=== PATIENT | female | born 1930 | race Two or more races ===

== ENCOUNTER 2020-07-03 14:39 | Inpatient (IN) | payer MEDICARE ==
[~2020-07-03] VITALS: Ht 154.9 cm; Wt 62.1 kg
--- NOTE | 2020-07-03 15:12 | Emergency Room Report ---
History of Present Illness General Chief Complaint: Generalized Weakness Source: Medical Record Present Illness HPI Disclaimer: Please note that this report is being documented using Spire[employer] technology. This can lead to erroneous entry secondary to incorrect interpretation by the dictating instrument. HPI: 89-year-old female presents from detention facility secondary to reported generalized weakness. Patient had a blood pressure noted to be mildly hypotensive at her detention facility. Patient is a poor historian and unable to provide any history. He does have a history of dementia, anxiety, arthritis, CHF. Allergies: Coded Allergies: No Known Allergies (Unverified , 07/03/20) COVID-19 Screening Contact w/high risk pt: No Experienced COVID-19 symptoms?: No COVID-19 Testing performed MIS SPECIALIST: Yes COVID-19 Screening: Negative COVID-19 COVID-19 Testing Source: 06/29/20 Patient History Reviewed Nursing Documentation: PMH: Agreed; PSxH: Agreed Nursing Documentation-PMH Past Medical History: No History, Except For Hx Hypertension: Yes Review of Systems All Other Systems: limited - Secondary to patient's baseline mental status Physical Exam Vital Signs Date Time Temp Pulse Resp B/P (MAP) Pulse Ox O2 Delivery O2 Flow Rate FiO2 07/03/20 14:41 60 16 88/48 (61) 99 Room Air Sp02 EP Interpretation: reviewed, normal General Appearance: well appearing, no apparent distress Head: normocephalic, atraumatic Eyes: bilateral eye PERRL, bilateral eye EOMI ENT: hearing grossly normal, moist mucus membranes Neck: full range of motion, supple Respiratory: lungs clear, normal breath sounds, no rhonchi, no respiratory distress, no retraction, no wheezing Cardiovascular #1: normal peripheral pulses, regular rate, rhythm, no murmur Gastrointestinal: non tender, soft, non-distended, no guarding Neurologic: alert, no focal defects, other - Patient nonverbal Skin: normal color, warm/dry Medical Decision Making Diagnostic Impression: Primary Impression: Urinary tract infection Additional Impression: Generalized weakness ER Course MDM: Differential diagnosis included not limited to dehydration, electrolyte disturbance, UTI, pneumonia to name a few. Did have COVID-19 testing approximately 4 days ago which was negative. Clinical course-IV inserted, patient seen by primary physician and infectious disease. Patient's urinalysis was consistent with infection. Initially ordered Zosyn however I stopped the order as infectious disease did see the patient in the ER and stated he would order antibiotics. Patient's vital signs were stable. Troponin was mildly elevated. Patient does have a history of pacemaker. Will be placed on the telemetry floor. Labs - Laboratory Tests Test 07/03/20 15:25 07/03/20 16:14 Sodium Level 141 MMOL/L (136-145) Potassium Level 4.1 MMOL/L (3.5-5.1) Chloride Level 107 MMOL/L (98-107) Carbon Dioxide Level 26 MMOL/L (21-32) Anion Gap 8 mmol/L (5-15) Blood Urea Nitrogen 32 mg/dL (7-18) H Creatinine 2.4 MG/DL (0.55-1.30) H Estimated Glomerular Filtration Rate 19.1 mL/min (>60) Glucose Level 108 MG/DL (74-106) H Lactic Acid Level 2.30 mmol/L (0.4-2.0) H Calcium Level 8.6 MG/DL (8.5-10.1) Total Bilirubin 0.5 MG/DL (0.2-1.0) Aspartate Amino Transferase (AST) 16 U/L (15-37) Alanine Aminotransferase (ALT) 14 U/L (12-78) Alkaline Phosphatase 35 U/L (46-116) L Total Creatine Kinase 56 U/L (26-308) Troponin I 0.070 ng/mL (0.000-0.056) Pro-B-Type Natriuretic Peptide 4567 pg/mL (0-125) H Total Protein 6.6 G/DL (6.4-8.2) Albumin 2.3 G/DL (3.4-5.0) L Globulin 4.3 g/dL Albumin/Globulin Ratio 0.5 (1.0-2.7) L Lipase 66 U/L (73-393) L White Blood Count 5.7 K/UL (4.8-10.8) Red Blood Count 4.97 M/UL (4.20-5.40) Hemoglobin 8.9 G/DL (12.0-16.0) L Hematocrit 32.0 % (37.0-47.0) L Mean Corpuscular Volume 64 FL (80-99) L Mean Corpuscular Hemoglobin 17.9 PG (27.0-31.0) L Mean Corpuscular Hemoglobin Concent 27.9 G/DL (32.0-36.0) L Red Cell Distribution Width 18.0 % (11.6-14.8) H Platelet Count 66 K/UL (150-450) L Mean Platelet Volume 8.4 FL (6.5-10.1) Neutrophils (%) (Auto) % (45.0-75.0) Lymphocytes (%) (Auto) % (20.0-45.0) Monocytes (%) (Auto) % (1.0-10.0) Eosinophils (%) (Auto) % (0.0-3.0) Basophils (%) (Auto) % (0.0-2.0) Neutrophils % (Manual) Pending Lymphocytes % (Manual) Pending Platelet Estimate Pending Platelet Morphology Pending Urine Color Yellow Urine Appearance Cloudy Urine pH 6 (4.5-8.0) Urine Specific [place] 1.015 (1.005-1.035) Urine Protein 3+ (NEGATIVE) H Urine Glucose (UA) Negative (NEGATIVE) Urine Ketones Negative (NEGATIVE) Urine Blood Negative (NEGATIVE) Urine Nitrite Negative (NEGATIVE) Urine Bilirubin Negative (NEGATIVE) Urine Urobilinogen Normal MG/DL (0.0-1.0) Urine Leukocyte Esterase 3+ (NEGATIVE) H Urine RBC /HPF (0 - 2) Urine WBC /HPF (0 - 2) Urine Squamous Epithelial Cells /LPF (NONE/OCC) Urine Bacteria /HPF (NONE) EKG Diagnostic Results Rate: normal Rhythm: other - Atrial paced rhythm Other Impression Q waves anteriorly Chest X-Ray Diagnostic Results Chest X-Ray Diagnostic Results : Chest X-Ray Ordered: Yes # of Views/Limited/Complete: 1 View Indication: Shortness of Breath EP Interpretation: Yes Impression: Other - Bilateral interstitial prominence noted Last Vital Signs Date Time Temp Pulse Resp B/P (MAP) Pulse Ox O2 Delivery O2 Flow Rate FiO2 07/03/20 14:41 60 16 88/48 (61) 99 Room Air Disposition: ADMITTED INPATIENT Condition: Serious Kirit Reyna M.D. Jul 03, 2020 15:12
[2020-07-03 15:43] VITALS: BP 102/47
--- NOTE | 2020-07-03 15:57 | NUR ---
PATIENTS Daughter called will update as soon as we have results [phone]
[2020-07-03 16:08] LABS: ANION GAP 8 mmol/L (5-15); BLOOD UREA NITROGEN 32 mg/dL (7-18); CALCIUM 8.6 MG/DL (8.5-10.1); CARBON DIOXIDE 26 MMOL/L (21-32); CHLORIDE 107 MMOL/L (98-107); CREATININE 2.4 MG/DL (0.55-1.30); POTASSIUM 4.1 MMOL/L (3.5-5.1); SODIUM 141 MMOL/L (136-145)
[2020-07-03] MEDS ORDERED: VITAMIN B-1100 MG ORAL (16:12)
[2020-07-03] MEDS ORDERED: VITAMIN D325 MC1 PO (16:12)
[2020-07-03] MEDS ORDERED: MIRTAZAPINE7.5 MG ORAL (16:12)
[2020-07-03] MEDS ORDERED: MULTIVITAMINS1 EAC2 ORAL (16:12)
[2020-07-03] MEDS ORDERED: PRAVASTATIN SOD10 M1 ORAL (16:12)
[2020-07-03] MEDS ORDERED: FERROUS SULFAT325 MG ORAL (16:12)
[2020-07-03] MEDS ORDERED: DIGOXIN0.125 MG/2 ORAL (16:12)
[2020-07-03] MEDS ORDERED: ZOLPIDEM TARTRAT5 MG ORAL (16:12)
[2020-07-03] MEDS ORDERED: LORATADINE10 M1 PO (16:12)
[2020-07-03] MEDS ORDERED: DULOXETINE HCL30 MG PO (16:12)
[2020-07-03] MEDS ORDERED: SPIRONOLACTONE25 MG ORAL (16:12)
[2020-07-03] MEDS ORDERED: CRANBERRY400 MG PO (16:12)
[2020-07-03] MEDS ORDERED: ACETAMINOPHEN325 M1 ORAL (16:12)
[2020-07-03] MEDS ORDERED: MULTAQ400 MG ORAL (16:12)
[2020-07-03] MEDS ORDERED: FUROSEMIDE20 M1 ORAL (16:12)
[2020-07-03] MEDS ORDERED: ASPIRIN81 MG ORAL (16:12)
[2020-07-03] MEDS ORDERED: LEVOTHYROXINE125 MCG ORAL (16:12)
[2020-07-03] MEDS ORDERED: PANTOPRAZOLE SO40 MG ORAL (16:12)
[2020-07-03] MEDS ORDERED: MILK OF MA400 MG/51 ORAL (16:12)
[2020-07-03] MEDS ORDERED: ALBUTEROL2.5 MG/3 M INH (16:12)
[2020-07-03] MEDS ORDERED: NAMENDA5 MG ORAL (16:12)
--- NOTE | 2020-07-03 16:20 | Diagnostic Imaging Report ---
Indication: Shortness of breath Technique: One view of the chest Comparison: none Findings: The heart is upper limits normal in size. There is bilateral acuity indeterminate interstitial prominence. There are multiple healed right rib fracture deformities. There is a left chest pacemaker. The pleural spaces are grossly clear. Impression: Bilateral interstitial prominence, acuity indeterminate; suspect on the basis of senescent change but could represent acute interstitial edema. Correlate with clinical findings Pacemaker
[2020-07-03 16:22] LABS: ALANINE AMINOTRANSFERASE 14 U/L (12-78); ALBUMIN 2.3 G/DL (3.4-5.0); ALBUMIN/GLOBULIN RATIO 0.5 (1.0-2.7); ALKALINE PHOSPHATASE 35 U/L (46-116); ASPARTATE AMINO TRANSFERASE 16 U/L (15-37); BILIRUBIN,TOTAL 0.5 MG/DL (0.2-1.0); CREATINE KINASE 56 U/L (26-308)
[2020-07-03] MEDS ORDERED: Piperacillin/Tazobactam 3.375 GM in NS 110 ML IVPB ONE (16:30)
[2020-07-03] MEDS ORDERED: Aspirin Baby 81mg ORAL ONE (16:45)
[2020-07-03 16:50] LABS: HEMOGLOBIN 8.9 G/DL (12.0-16.0); MEAN CORPUSCULAR VOLUME 64 FL (80-99); PLATELET COUNT 66 K/UL (150-450); RED BLOOD COUNT 4.97 M/UL (4.20-5.40); WHITE BLOOD COUNT 5.7 K/UL (4.8-10.8)
[2020-07-03 17:01] LABS: APPEARANCE,URINE CLOUDY; BILIRUBIN, URINE NEGATIVE (NEGATIVE); NITRITE,URINE NEGATIVE (NEGATIVE); UROBILINOGEN,URINE NORMAL MG/DL (0.0-1.0)
[2020-07-03 17:13] LABS: COLOR,URINE YELLOW
--- NOTE | 2020-07-03 17:18 | NUR ---
ED Nurse Note: Report given to Callie PHAN of telemetry unit.
--- NOTE | 2020-07-03 17:19 | NUR ---
NURSE NOTES: Report was received from Viv ED RN. Awaiting arrival to telemetry floor.
[2020-07-03 17:37] LABS: LEUKOCYTE ESTERASE ,URINE 3+ (NEGATIVE)
[2020-07-03 17:40] LABS: KETONES,URINE NEGATIVE (NEGATIVE); PH,URINE 6 (4.5-8.0); PROTEIN,URINE 3+ (NEGATIVE)
[2020-07-03 17:41] LABS: GLUCOSE, URINE (UA) NEGATIVE (NEGATIVE)
[2020-07-03 18:00] VITALS: BP 104/37
--- NOTE | 2020-07-03 18:00 | NUR ---
NURSE NOTES: Patient arrived to the telemetry floor via hospital bed, breathing even and unlabored on room air. Patient belongings accounted for, radiation monitor placed, 20g IV on left forearm intact, saline locked. Alert and oriented x1, unable to fully gauge alert and oriented status due to language barrier but patient is responsive to environmental and tactile stimuli, bed alarm on, bed in lowest and locked position, side rails upx2, call light within reach.
--- NOTE | 2020-07-03 18:18 | NUR ---
NURSE NOTES: Received admission orders from Dr. Pak, including to hold loratidine and furosemide, noted and will carry out.
[2020-07-03] MEDS ORDERED: Albuterol ud Inhalation HHN PRN (18:45)
[2020-07-03] MEDS ORDERED: Albuterol 90mcg Inhaler 8gm INH PRN (18:45)
--- NOTE | 2020-07-03 19:39 | NUR ---
NURSE HAND-OFF REPORT: Important Events on Shift: Fever endorsed to PM shift Patient Status: stable condition, breathing even and unlabored Diet: Kosher mechanical soft Pending Orders: [] Pending Results/Labs:[] Pending MD notification:[] Latest Vital Signs: Temperature 101.2 , Pulse 79 , B/P 96 /56 , Respiratory Rate 18 , O2 SAT 99 , Room Air, O2 Flow Rate . Vital Sign Comment: [] EKG Rhythm: Sinus Rhythm Rhythm change?: N MD Notified?: - MD Response: Latest Parada Fall Score: 60 Fall Risk: High Risk Safety Measures: Call light Within Reach, Bed Alarm Zone 2, Side Rails Side Rails x2, Bed position Low and Locked. Fall Precautions: Yellow Socks Yellow Gown Door Sign Patient Fall Education Report given to Jessi Szymanski RN.
--- NOTE | 2020-07-03 19:40 | NUR ---
NURSE NOTES: Report received from EMILIE Wilkins. Patient is awake on bed , alert and oriented x . laboratory monitor is in place, shows sinus rhythm, she has pacemaker on her left upper chest. On room air with no desaturation reported. On kosher, mechanical soft-ground diet. Patient is on fall precaution. IV site is on left forearm g-20 running NS @ 50 cc/hour that is patent and intact. Safety measures are in place, bed in lowest and locked position, side rails up x 2, call light button place within reach, instructed to call for any assistance needed.
[2020-07-03 20:00] VITALS: BP 81/34
--- NOTE | 2020-07-03 20:00 | NUR ---
NURSE NOTES: Patient's temperature at this time is 102. Tylenol 650 mg was given arpung 1900 by morning nurse, cooling measures will be provided.
--- NOTE | 2020-07-03 20:31 | Consultation ---
History of Present Illness General Date patient seen: Jul 03, 2020 Time patient seen: 16:30 Chief Complaint: Generalized Weakness Referring physician: Matthew Colunga Reason for Consultation: Bilateral pneumonia with UTI and possible sepsis Present Illness HPI This is an 89-year-old [place] female with past medical history of CHF, arthri tis, anxiety, dementia was [facility] from her [facility] facility for generalized weakness and hypotension. It is unclear for how long patient had these symptoms but she was evaluated and sent to the hospital for further evaluation and management. Patient had low blood pressure in ER with 88 systolic over 48 diastolic and sating 99% on room air with pulse of 60. she had extensive work-up in the emergency room including labs which showed elevated creatinine of 2.4 with BUN of 32, lactic acid of 2.3, WBC of 5.7 with hemoglobin of 8.9 and platelet of 66, urine analysis showed +3 leukocyte esterase with many bacteria concerning for infection, chest x-ray showed bilateral interstitial infiltrations concerning for pneumonia so she was given Zosyn and vancomycin and admitted to the medical floor, infectious disease consultation was requested for antimicrobial treatment on further care. As of note patient is poor historian could not provide good history at this time Allergies: Coded Allergies: No Known Allergies (Unverified , 07/03/20) Medication History Scheduled Aspirin* (Aspirin*), 81 MG ORAL DAILY, (Reported) Cholecalciferol (Vitamin D3) (Vitamin D3*), 1,250 MCG PO DAILY, (Reported) Digoxin* (Digoxin*), 0.125 MG ORAL DAILY, (Reported) Dronedarone Hydrochloride (Multaq), 400 MG ORAL TWICE A DAY, (Reported) Duloxetine HCl (Duloxetine HCl*), 30 MG PO DAILY, (Reported) Ferrous Sulfate* (Ferrous Sulfate*), 325 MG ORAL DAILY, (Reported) Furosemide* (Lasix*), 20 MG ORAL DAILY, (Reported) Levothyroxine Sodium* (Levothyroxine Sodium*), 112 MCG ORAL DAILY, (Reported) Loratadine (Claritin*), 10 MG PO DAILY, (Reported) Magnesium Hydroxide* (Milk Of Magnesia*), 30 ML ORAL DAILY, (Reported) Memantine Hcl* (Namenda*), 5 MG ORAL DAILY, (Reported) Mirtazapine* (Mirtazapine*), 7.5 MG ORAL BEDTIME, (Reported) Multivitamins* (Multivitamins*), 1 TAB ORAL DAILY, (Reported) Pantoprazole* (Pantoprazole*), 40 MG ORAL DAILY, (Reported) Pravastatin Sod (Pravastatin Sod), 10 MG ORAL BEDTIME, (Reported) Spironolactone* (Aldactone*), 12.5 MG ORAL DAILY, (Reported) Thiamine Hcl* (Vitamin B-1*), 100 MG ORAL DAILY, (Reported) Scheduled PRN Acetaminophen* (Acetaminophen 325MG Tablet*), 650 MG ORAL Q4H PRN for Pain Scale (3-5), (Reported) Albuterol Sulfate* (Albuterol Sulfate Hhn*), 3 ML INH Q4H PRN for Shortness of Breath, (Reported) Zolpidem Tartrate* (Zolpidem Tartrate*), 5 MG ORAL BEDTIME PRN for Insomnia, (Reported) Miscellaneous Medications Cranberry (Cranberry), 400 MG PO, (Reported) Patient History Limited by: language barrier, age History Provided By: Medical Record, EMS Healthcare decision maker N Resuscitation status Advanced Directive on File Past Medical/Surgical History Past Medical/Surgical History: (1) CHF (congestive heart failure) (2) Arthritis (3) Dementia Family History Family History: (1) Unknown family medical history Social History Social History: (1) longterm resident Review of Systems Constitutional: Reports: weakness Eye: Reports: no symptoms ENT: Reports: no symptoms Respiratory: Reports: cough, DEMPSEY Cardiovascular: Reports: no symptoms Gastrointestinal: Reports: no symptoms Genitourinary: Reports: no symptoms Musculoskeletal: Reports: other - Weakness Skin: Reports: no symptoms Psychiatric: Reports: no symptoms Neurological: Reports: other - Confusion Endocrine: Reports: no symptoms Hematologic/Lymphatic: Reports: no symptoms Physical Exam General Appearance: WD/WN, no apparent distress, lethargic, confused Lines, tubes and drains: peripheral HEENT: normocephalic, anicteric, mucous membranes moist, PERRL Neck: non-tender, supple, normal inspection Respiratory/Chest: chest wall non-tender, no respiratory distress, no accessory muscle use, crackles/rales Cardiovascular/Chest: normal peripheral pulses, normal rate, regular rhythm, no gallop/murmur, no JVD Abdomen: normal bowel sounds, non tender, soft, no organomegaly, no mass Genitourinary/Rectal: normal genital exam Extremities: normal range of motion, non-tender, normal inspection, no calf tenderness Skin Exam: normal pigmentation, warm/dry Neurologic: alert, responsive Musculoskeletal: normal muscle bulk, no effusion Last 24 Hour Vital Signs Date Time Temp Pulse Resp B/P (MAP) Pulse Ox O2 Delivery O2 Flow Rate FiO2 07/03/20 18:34 98.0 79 18 96/56 99 Room Air 07/03/20 18:00 93 07/03/20 18:00 99.5 93 20 104/37 (59) 94 07/03/20 17:52 Room Air 07/03/20 15:43 66 18 Room Air 07/03/20 15:43 98.0 68 18 102/47 98 Room Air 07/03/20 14:41 60 16 88/48 (61) 99 Room Air Laboratory Tests Test 07/03/20 15:25 07/03/20 16:14 Sodium Level 141 MMOL/L (136-145) Potassium Level 4.1 MMOL/L (3.5-5.1) Chloride Level 107 MMOL/L (98-107) Carbon Dioxide Level 26 MMOL/L (21-32) Anion Gap 8 mmol/L (5-15) Blood Urea Nitrogen 32 mg/dL (7-18) H Creatinine 2.4 MG/DL (0.55-1.30) H Estimat Glomerular Filtration Rate 19.1 mL/min (>60) Glucose Level 108 MG/DL (74-106) H Lactic Acid Level 2.30 mmol/L (0.4-2.0) H Calcium Level 8.6 MG/DL (8.5-10.1) Total Bilirubin 0.5 MG/DL (0.2-1.0) Aspartate Amino Transf (AST/SGOT) 16 U/L (15-37) Alanine Aminotransferase (ALT/SGPT) 14 U/L (12-78) Alkaline Phosphatase 35 U/L (46-116) L Total Creatine Kinase 56 U/L (26-308) Troponin I 0.070 ng/mL (0.000-0.056) Pro-B-Type Natriuretic Peptide 4567 pg/mL (0-125) H Total Protein 6.6 G/DL (6.4-8.2) Albumin 2.3 G/DL (3.4-5.0) L Globulin 4.3 g/dL Albumin/Globulin Ratio 0.5 (1.0-2.7) L Lipase 66 U/L (73-393) L White Blood Count 5.7 K/UL (4.8-10.8) Red Blood Count 4.97 M/UL (4.20-5.40) Hemoglobin 8.9 G/DL (12.0-16.0) L Hematocrit 32.0 % (37.0-47.0) L Mean Corpuscular Volume 64 FL (80-99) L Mean Corpuscular Hemoglobin 17.9 PG (27.0-31.0) L Mean Corpuscular Hemoglobin Concent 27.9 G/DL (32.0-36.0) L Red Cell Distribution Width 18.0 % (11.6-14.8) H Platelet Count 66 K/UL (150-450) L Mean Platelet Volume 8.4 FL (6.5-10.1) Neutrophils (%) (Auto) % (45.0-75.0) Lymphocytes (%) (Auto) % (20.0-45.0) Monocytes (%) (Auto) % (1.0-10.0) Eosinophils (%) (Auto) % (0.0-3.0) Basophils (%) (Auto) % (0.0-2.0) Differential Total Cells Counted 100 Neutrophils % (Manual) 71 % (45-75) Lymphocytes % (Manual) 27 % (20-45) Monocytes % (Manual) 2 % (1-10) Eosinophils % (Manual) 0 % (0-3) Basophils % (Manual) 0 % (0-2) Band Neutrophils 0 % (0-8) Platelet Estimate Decreased L Platelet Morphology Normal Hypochromasia 1+ Anisocytosis 1+ Microcytosis 1+ Urine Color Yellow Urine Appearance Cloudy Urine pH 6 (4.5-8.0) Urine Specific [place] 1.015 (1.005-1.035) Urine Protein 3+ (NEGATIVE) H Urine Glucose (UA) Negative (NEGATIVE) Urine Ketones Negative (NEGATIVE) Urine Blood Negative (NEGATIVE) Urine Nitrite Negative (NEGATIVE) Urine Bilirubin Negative (NEGATIVE) Urine Urobilinogen Normal MG/DL (0.0-1.0) Urine Leukocyte Esterase 3+ (NEGATIVE) H Urine RBC /HPF (0 - 2) Urine WBC /HPF (0 - 2) Urine Squamous Epithelial Cells /LPF (NONE/OCC) Urine Bacteria /HPF (NONE) Microbiology Date/Time Source Procedure Growth Status 07/03/20 17:01 Rectum Received Height (Feet): 5 Height (Inches): 1.00 Weight (Pounds): 137 Medications Current Medications Medications (Trade) Dose Ordered Sig/Kallie Route PRN Reason Start Time Stop Time Status Last Admin Dose Admin Acetaminophen (Tylenol) 650 mg Q4H PRN ORAL Temp >100.5 07/03/20 18:30 08/02/20 18:29 07/03/20 19:10 Acetaminophen (Tylenol) 650 mg Q4H PRN ORAL pain 07/03/20 18:45 08/02/20 18:44 Albuterol Sulfate (Proventil MDI) 1 puff Q4H PRN INH Shortness of Breath 07/03/20 18:45 10/01/20 18:44 Aspirin (ASA) 81 mg DAILY ORAL 07/04/20 09:00 08/18/20 08:59 Duloxetine HCl (Cymbalta) 30 mg DAILY ORAL 07/04/20 09:00 10/02/20 08:59 Ferrous Sulfate (Feosol) 325 mg DAILY ORAL 07/04/20 09:00 10/02/20 08:59 Levothyroxine Sodium (Synthroid) 112 mcg DAILY@0630 ORAL 07/04/20 06:30 08/03/20 06:29 Magnesium Hydroxide (Mom) 30 ml DAILY ORAL 07/04/20 09:00 08/03/20 08:59 Memantine (Namenda) 5 mg DAILY ORAL 07/04/20 09:00 08/03/20 08:59 Mirtazapine (Remeron) 7.5 mg BEDTIME ORAL 07/03/20 21:00 10/01/20 20:59 Multivitamins (Multivitamins) 1 tab DAILY ORAL 07/04/20 09:00 08/03/20 08:59 Pantoprazole (Protonix) 40 mg DAILY ORAL 07/04/20 09:00 08/03/20 08:59 Piperacillin Sod/ Tazobactam Sod 3.375 gm/Sodium Chloride 110 ml @ 27.5 mls/hr Q12HR IVPB 07/03/20:00 07/10/20 20:59 Pravastatin Sodium (Pravachol) 10 mg BEDTIME ORAL 07/03/20 21:00 08/02/20 20:59 Sodium Chloride 1,000 ml @ 50 mls/hr Q20H IV 07/03/20 18:30 08/02/20 18:29 07/03/20 19:11 Spironolactone (Aldactone) 12.5 mg DAILY ORAL 07/04/20 09:00 08/03/20 08:59 Thiamine HCl (Vitamin B1) 100 mg DAILY ORAL 07/04/20 09:00 08/03/20 08:59 Vancomycin HCl (Vanco pharmacy to dose) 1 ea DAILY PRN MISC Per rx protocol 07/03/20 19:00 08/02/20 18:59 Vancomycin HCl 1 gm/Dextrose 275 ml @ 183.708 mls/hr ONCE IVPB 07/04/20 01:00 07/04/20 03:00 Zolpidem Tartrate (Ambien) 5 mg BEDTIME PRN ORAL Insomnia 07/03/20 18:45 07/10/20 18:44 Assessment/Plan Problem List: (1) Bilateral pneumonia Assessment & Plan: With interstitial infiltrations on chest x-ray, continue vancomycin and Zosyn monitor chest x-ray, aspiration precaution. Patient was tested recently for CO VID 19 with PCR test couple of days ago and it was negative as per the primary ICD Codes: J18.9 - Pneumonia, unspecified organism SNOMED: 968313051 (2) Acute renal failure Assessment & Plan: Suspect due to dehydration continue fluids, avoid nephrotoxic's, close monitor of renal function, nephrology is following ICD Codes: N17.9 - Acute kidney failure, unspecified SNOMED: 15430251 (3) Dehydration Assessment & Plan: Continue IV fluids for hydration and monitor electrolytes ICD Codes: E86.0 - Dehydration SNOMED: 21117980 (4) Urinary tract infection Assessment & Plan: Already on antibiotics pending urine cultures ICD Codes: N39.0 - Urinary tract infection, site not specified SNOMED: 25535367 Qualifiers: (5) Generalized weakness Assessment & Plan: Supportive care, PT OT eval ICD Codes: R53.1 - Weakness SNOMED: 53661574 Status: stable Isma Schaffer M.D. Jul 03, 2020 20:31
[2020-07-03] MEDS: Piperacillin/Tazobactam 3.375 GM in NS 110 ML IVPB SCH (20:57)
[2020-07-03 21:30] VITALS: BP 88/38
--- NOTE | 2020-07-03 21:30 | NUR ---
NURSE NOTES: blood pressure is still low 88/38, maintained on Trendelenburg position, will closely monitor.
--- NOTE | 2020-07-03 21:40 | NUR ---
NURSE NOTES: Called Dr. Pak and left a message, informing him regarding patient's blood pressure. Awaiting for call back.
[2020-07-03 22:00] VITALS: BP 80/33
[2020-07-03] MEDS ORDERED: NS 250 ML IVPB ONE (22:00)
--- NOTE | 2020-07-03 22:00 | NUR ---
NURSE NOTES: Received a called back from Dr. Pak, will carry out.
[2020-07-03] MEDS: Midodrine 10mg tab ORAL SCH (22:21)
--- NOTE | 2020-07-03 23:20 | NUR ---
NURSE NOTES: Patient's blood pressure after 250 NS bolus, increasing her IVF rate and giving 5mg midodrine is 75/29 on left arm and 80/41 on right arm will call Dr. Pak.
--- NOTE | 2020-07-03 23:30 | NUR ---
NURSE NOTES: Spoke with Dr. Pacheco and received an orders. Will carry out.
[2020-07-04] VITALS (56 sets, daily range): BP systolic 44–150; BP diastolic 26–86
--- NOTE | 2020-07-04 00:10 | NUR ---
TRANSFER TO FLOOR: Patient transferred to ICU, per bed. Report given to EMILIE Cole. Belongings and medications given to receiving RN. At this time patient is awake, non-verbal but able to follow commands. latest blood pressure is 75/29. Plan of care endorsed.
--- NOTE | 2020-07-04 00:15 | NUR ---
NURSE NOTES: ENDORSED THE PATIENT FROM TELE NURSE EMILIE VEGA. PATIENT OPEN EYES TO NAME, ON ROOM AIR, NO SOB NOTED, PACEMAKER TO LEFT UPPER CHEST, HR 70/MIN A- PACED/SR NOTED, ABDOMEN SOFT, INCONTINENCE STATUS, PPL TO LEFT FA 20G INTACT AND PATENT, ONGOING IV FLUID NS AT 75ML/HR STATUS, MADE LOWER BED POSITION, ON BED ALARM AND LOCKED, PROVIDED CALL LIGHT WITHIN REACH, WILL CONTINUE TO MONITOR.
--- NOTE | 2020-07-04 00:42 | NUR ---
NURSE NOTES: CALLED DR. FREY REGARDING BP 69/27MMHG THAT LEFT MESSAGE AWAIT CALL.
[2020-07-04] MEDS ORDERED: Vancomycin 1gm in D5W 275ml IVPB SCH ×2 (01:00→14:00)
--- NOTE | 2020-07-04 01:23 | NUR ---
NURSE NOTES: CALLED DR. FREY REGARDING BP 75/41 MMHG THAT LEFT MESSAGE AWAIT CALL.
--- NOTE | 2020-07-04 01:45 | NUR ---
NURSE NOTES: CALLED NURSING [employer] THAT DID NOT CALL BACK FROM DR. ARROYO.
--- NOTE | 2020-07-04 02:10 | NUR ---
NURSE NOTES: LE: ANESTHESIA ASSISTANT CAME AND CALLED DR. ARROYO THAT NURSE RECEIVED TELEPHONE ORDER AND READ BACK AT 0152AM. CALLED DR. BARRIOS REGARDING CENTRAL LINE THAT LEFT MESSAGE AWAIT CALL AT 0154AM. CALLED BACK FROM DR. BARRIOS THAT TRANSFER TO ER DOCTOR REGARDING CENTRAL LINE PLACEMENT ORDER AT 0200AM.
--- NOTE | 2020-07-04 02:25 | NUR ---
NURSE NOTES: LE: ER DR. DURAN, PLACED 3 LUMEN CENTRAL LINE TO RIGHT FEMORAL.
[2020-07-04 02:31] LABS: HEMATOCRIT 24.4 % (37.0-47.0); MEAN CORPUSCULAR VOLUME 63 FL (80-99); PLATELET COUNT 35 K/UL (150-450); RED BLOOD COUNT 3.86 M/UL (4.20-5.40); RED CELL DISTRIBUTION WIDTH 17.9 % (11.6-14.8); WHITE BLOOD COUNT 14.2 K/UL (4.8-10.8)
[2020-07-04 02:48] LABS: CALCIUM 6.6 MG/DL (8.5-10.1); CREATININE 2.6 MG/DL (0.55-1.30); POTASSIUM 3.9 MMOL/L (3.5-5.1)
--- NOTE | 2020-07-04 02:56 | NUR ---
NURSE NOTES: PATIENT TRIED TO REMOVE LINE, BP 135/54MMHG WITH LEVOPHED DRIP 8 MCG/MIN AT THIS TIME, WILL CONTINUE TO MONITOR.
[2020-07-04 03:25] LABS: HEMOGLOBIN 6.9 G/DL (12.0-16.0)
--- NOTE | 2020-07-04 04:29 | History and Physical Report ---
DATE OF ADMISSION: 07/03/2020 This is a late dictation. Time patient was seen was at 5:00 in the afternoon in the emergency room. CHIEF COMPLAINT: Generalized weakness. HISTORY OF PRESENT ILLNESS: This is an 89-year-old [place] female with a past medical history of CHF, arthritis, anxiety, dementia who was brought in from assisted living for complaint of generalized weakness and multiple falls and hypotension x 2-3 days. Patient came in to the ER with blood pressure of 88/48 and saturating at 99% on room air with a pulse of 60. She was not in respiratory distress and I was able to talk to the patient in the emergency room. Her labs showed infiltrate in the chest x-ray consistent with pneumonia and BUN of 32, creatinine of 2.4 consistent with acute renal failure and also her UA showed positive leukocyte esterase consistent with urinary tract infection. Patient was being admitted to [facility] for IV antibiotic and we will start the patient on IV fluid for hydration. ALLERGIES: No known drug allergies. MEDICATIONS: Patient was on aspirin, vitamin D, digoxin, Multaq, duloxetine, ferrous sulfate, Lasix, levothyroxine, loratadine, magnesium hydroxide, mirtazapine, multivitamin, pantoprazole, pravastatin, spironolactone, and thiamine as outpatient. FAMILY HISTORY: Noncontributory. SOCIAL HISTORY: Patient resides at [facility]. No history of smoking or alcohol. No history of IV drug use. PAST SURGICAL HISTORY: Pacemaker placement. PAST MEDICAL HISTORY: Includes CHF, arthritis, dementia, anxiety, insomnia, hypothyroidism, and history of anemia and Depression REVIEW OF SYSTEMS: Negative except for HPI. PHYSICAL EXAMINATION: VITAL SIGNS: Include blood pressure 96/56, pulse ox 99% on room air, pulse 79, respirations 18, blood pressure 98.0. GENERAL APPEARANCE: Alert. Responds to commands. HEENT: Normocephalic, normochromic. Extraocular muscles intact. NECK: Supple. No lymphadenopathy. LUNGS: Clear to auscultation bilaterally except for small rhonchi on the right side. CARDIOVASCULAR: Regular rate and rhythm. No murmur. No gallop. ABDOMEN: Soft, nontender, nondistended. Positive bowel sounds. EXTREMITIES: No edema, cyanosis, or clubbing. NEUROLOGIC: Patient responds to commands. LABORATORY DATA: Sodium 141, potassium 4.1, chloride 107, carbon dioxide 26, BUN 32, creatinine 2.4, glucose 108. Lactic acid 2.3. AST 16, ALT 14. Calcium 8.6. Alkaline phosphatase 35. Troponin is 0.07. Creatine kinase is 56. BNP 4567. Total protein 6.6. Albumin 2.3. Lipase 66. WBC 5.7, hemoglobin 8.9, hematocrit 32, MCV 64, platelet count 66. UA showed +3 protein, +3 leukocyte esterase, wbc's 60 to 80, rbc's 0 to 2, epithelial cells few, urine bacteria many. Chest x-ray showed bilateral infiltrate. ASSESSMENT: 1. Pneumonia. We will start the patient on Zosyn and Vanco IV and will send for COVID-19 PCR testing. Patient had a COVID-19 done few days ago at the assisted living that was negative. 2. Urinary tract infection. We will continue same antibiotic Zosyn and Vanco and we will follow up cultures. 3. Acute renal failure. We will continue hydration and hold blood pressure medication. 4. Hypotension and dehydration. We will continue IV fluids and monitor electrolytes. 5. CHF. We will have manager of purchasing, Dr. Abbott see the patient and we will do a consult for Cardiology. 6. Generalized weakness. We will have PT/OT evaluation while in the hospital and monitor her progress. 7. Thrombocytopenia. I will continue monitoring the platelet count and we will try to get end stapler evaluation if the platelet count does not improve. 8. Pacemaker. I will have the manager of purchasing see the patient for her pacemaker as well. 9. Possible sepsis. We will continue IV antibiotics as above. Patient will be admitted for minimum of 2-night stay for the diagnoses of pneumonia, urinary tract infection, acute renal failure, hypotension, and possible sepsis. Matthew Pak M.D. DR: LINN JOB#: [id number] CC: MACIE
--- NOTE | 2020-07-04 05:20 | NUR ---
NURSE NOTES: MORNING CARE WAS DONE, VOIDED, YELLOW URINE OUTED, PATIENT ALERT, DENIED PAIN OR SOB AT THIS TIME, ONGOING LEVOPHED 6MCG/MIN VIA RIGHT FEMORAL TLC, WILL CONTINUE TO MONITOR.
--- NOTE | 2020-07-04 05:42 | Emergency Room Report ---
History of Present Illness General Chief Complaint: Generalized Weakness Source: Medical Record, EMS Present Illness HPI This patient was admitted for sepsis and became hypotensive requiring pressors. I was asked to place a central line. Unable to get consent from patient or family. A central line was placed under sterile condition. Patient tolerated procedure without any problem. Allergies: Coded Allergies: No Known Allergies (Unverified , 07/03/20) COVID-19 Screening Contact w/high risk pt: Yes Experienced COVID-19 symptoms?: Yes COVID-19 Testing performed CLOCKMAKER APPRENTICE: Yes COVID-19 Screening: Negative COVID-19 COVID-19 Testing Source: 06/29/20 Nursing Documentation-PM Past Medical History: No History, Except For Hx Cardiac Problems: Yes Hx Hypertension: Yes Hx Neurological Problems: Yes Hx Weakness: Yes Physical Exam Vital Signs Date Time Temp Pulse Resp B/P (MAP) Pulse Ox O2 Delivery O2 Flow Rate FiO2 07/03/20 14:41 60 16 88/48 (61) 99 Room Air 07/03/20 15:43 98.0 Procedures Central Line Central Line : Consent: Emergent Central Line Lumen: triple Maximal Sterile Barrier Tech: yes cap, yes mask, yes sterile gown, yes sterile gloves, yes large sterile sheet, yes hand hygiene, yes chlorhexidine prep Central Line Postion: femoral (R) Anesthesia: local cc's of anesthesia: 5 US Guided Line?: No Complications: none Central Line Post Position: sutured, good blood return Attempts: One Patient Tolerated: Well Complications: None Medical Decision Making Diagnostic Impression: Primary Impression: Urinary tract infection Additional Impressions: Generalized weakness Septic shock Person under investigation for COVID-19 Last Vital Signs Date Time Temp Pulse Resp B/P (MAP) Pulse Ox O2 Delivery O2 Flow Rate FiO2 07/04/20 04:15 62 23 108/42 (64) 93 07/04/20 04:00 Room Air 07/04/20 04:00 97.6 Disposition: ADMITTED INPATIENT Condition: Critical Referrals: Matthew Pak MD (PCP) Raúl Garnett MD Jul 04, 2020 05:42
[2020-07-04 06:13] LABS: HEMATOCRIT 31.3 % (37.0-47.0); HEMOGLOBIN 8.7 G/DL (12.0-16.0); MEAN CORPUSCULAR VOLUME 64 FL (80-99); PLATELET COUNT 28 K/UL (150-450); RED BLOOD COUNT 4.92 M/UL (4.20-5.40); RED CELL DISTRIBUTION WIDTH 17.9 % (11.6-14.8); WHITE BLOOD COUNT 11.9 K/UL (4.8-10.8)
--- NOTE | 2020-07-04 07:16 | NUR ---
NURSE HAND-OFF REPORT: Latest Vital Signs: Temperature 97.6 , Pulse 95 , B/P 130 /86 , Respiratory Rate 30 , O2 SAT 94 , Room Air, O2 Flow Rate . Vital Sign Comment: EKG Rhythm: A-Paced Rhythm change?: N MD Notified?: - MD Response: Latest Parada Fall Score: 45 Fall Risk: High Risk Safety Measures: Call light Within Reach, Bed Alarm Zone 1, Side Rails Side Rails x2, Bed position Low and Locked. Fall Precautions: Yellow Socks Door Sign Report given to EMILIE BROWN.
--- NOTE | 2020-07-04 08:00 | NUR ---
NURSE NOTES: Spoke to pt's daughter. Updated her on pt's current condition and answered her questions.
[2020-07-04] MEDS: Piperacillin/Tazobactam 3.375 GM in NS 110 ML IVPB SCH (08:30)
[2020-07-04] MEDS: Milk of Magnesia 30ml Ud ORAL SCH (08:31)
[2020-07-04] MEDS: Memantine 10mg tab ORAL SCH (08:31)
[2020-07-04] MEDS: Thiamine 100mg tab ORAL SCH (08:31)
[2020-07-04] MEDS: Midodrine 10mg tab ORAL SCH (08:31)
[2020-07-04] MEDS: DULoxetine 30mg cap ORAL SCH (08:55)
[2020-07-04] MEDS ORDERED: Spironolactone 25mg tab ORAL SCH (09:00)
[2020-07-04] MEDS ORDERED: Aspirin Baby 81mg ORAL SCH (09:00)
--- NOTE | 2020-07-04 09:52 | NUR ---
NURSE NOTES: Report received from EMILIE Kolb. Pt is observed laying in bed, drowsy and weak; however, opening eyes spontaneously and following simple commands. Pt has a Left upper chest Pacemaker. A-paced on the quality assurance monitor body. Pt has a pure wick in place draining urine. Skin warm and dry. Rt femoral TLC intact running Levophed @ 6mcg/min and NS at 75 ml/hr. Bed locked and in lowest position, with call light within reach. will resume plan of care.
--- NOTE | 2020-07-04 10:00 | NUR ---
NURSE NOTES: Pt is confused and disoriented. Frequently asks for her shoes. When asked where pt is going to go, pt replies "outside".
--- NOTE | 2020-07-04 10:30 | Diagnostic Imaging Report ---
EXAM: US Duplex Bilateral Lower Extremities Veins CLINICAL HISTORY: SCREEN TECHNIQUE: Real-time duplex ultrasound scan of the bilateral lower extremity veins integrating B-mode two-dimensional vascular structure, Doppler spectral analysis, color flow Doppler imaging and compression. COMPARISON: None FINDINGS: Right deep veins: The right common femoral vein and proximal superficial femoral vein are not visualized due to presence of tubing and bandages. The rest of the right superficial femoral vein and popliteal vein and calf veins are patent. Right superficial veins: The right greater saphenous vein is not visualized due to presence of tubing and bandages. Left deep veins: Unremarkable. No DVT in the left common femoral, femoral, proximal deep femoral or popliteal veins. The veins demonstrate normal color flow, are normally compressible, with normal phasic flow and/or augmentation response. Left superficial veins: Unremarkable. No thrombus in the visualized left great saphenous vein. Soft tissues: No acute findings. No popliteal cyst. IMPRESSION: No deep venous thrombosis identified in either lower extremity. Right common femoral vein, greater saphenous vein, and proximal superficial femoral vein are not visualized on this exam due to presence of tubing and bandages.
[2020-07-04] MEDS ORDERED: NS 275ml ONE (10:37)
[2020-07-04] MEDS ORDERED: Tubing IV Secondary IV ONE (10:37)
--- NOTE | 2020-07-04 11:05 | NUR ---
NURSE NOTES: Dr Pak at bedside assessing pt. Updated him on pt's current condition. New orders received and acknowledged.
--- NOTE | 2020-07-04 11:19 | General Progress Note ---
Subjective Date patient seen: Jul 04, 2020 Time patient seen: 11:00 Constitutional: Reports: weakness Respiratory: Reports: no symptoms Gastrointestinal/Abdominal: Reports: no symptoms Genitourinary: Reports: no symptoms Neurologic/Psychiatric: Reports: weakness, other - Dementia Hematologic/Lymphatic: Reports: anemia Allergies: Coded Allergies: No Known Allergies (Unverified , 07/03/20) Subjective Patient was transferred to ICU due to hypotension and septic shock and she was started on Pressor. She spiked fever yesterday but better today. no sob or chest pain. Objective Last 24 Hour Vital Signs Date Time Temp Pulse Resp B/P (MAP) Pulse Ox O2 Delivery O2 Flow Rate FiO2 07/04/20 10:00 95 27 101/42 (61) 99 07/04/20 10:00 101/42 07/04/20 09:00 98 27 106/35 (58) 100 07/04/20 09:00 106/35 07/04/20 08:30 77 95/31 (52) 99 07/04/20 08:00 Room Air 07/04/20 08:00 94/28 07/04/20 08:00 100.2 77 27 94/28 (50) 96 07/04/20 07:00 74 32 103/39 (60) 96 07/04/20 07:00 103/39 07/04/20 06:00 130/86 07/04/20 06:00 95 30 130/86 (101) 94 07/04/20 05:30 65 21 117/44 (68) 97 07/04/20 05:00 119/45 07/04/20 05:00 73 25 119/45 (69) 98 07/04/20 04:30 66 17 111/37 (61) 93 07/04/20 04:15 62 23 108/42 (64) 93 07/04/20 04:06 60 07/04/20 04:00 Room Air 07/04/20 04:00 107/41 07/04/20 04:00 97.6 64 23 107/41 (63) 92 07/04/20 03:45 74 27 103/43 (63) 91 07/04/20 03:30 64 17 103/39 (60) 92 07/04/20 03:15 90 46 123/39 (67) 88 07/04/20 03:00 60 20 143/44 (77) 97 07/04/20 03:00 143/44 07/04/20 02:59 61 19 150/47 (81) 97 07/04/20 02:45 61 24 135/54 (81) 98 07/04/20 02:40 120/50 2 02:37 61 20 120/50 (73) 99 07/04/20 02:30 60 23 53/42 (46) 99 07/04/20 02:30 53/42 07/04/20 02:22 60 32 77/59 (65) 99 07/04/20 02:15 61 28 67/31 (43) 99 07/04/20 02:05 61 23 71/31 (44) 99 07/04/20 02:00 60 32 44/26 (32) 100 07/04/20 02:00 71/31 07/04/20 01:45 60 28 70/26 (41) 99 07/04/20 01:38 70 41 72/36 (48) 99 07/04/20 01:30 70 46 76/32 (47) 99 07/04/20 01:29 66 28 83/33 (50) 99 07/04/20 01:15 61 22 75/41 (52) 99 07/04/20 01:06 60 20 71/31 (44) 99 07/04/20 01:00 70 13 75/35 (48) 98 07/04/20 00:53 65 20 81/61 (68) 100 07/04/20 00:45 61 21 65/31 (42) 99 07/04/20 00:41 56 20 69/27 (41) 99 07/04/20 00:34 68 19 76/31 (46) 98 07/04/20 00:30 66 21 57/45 (49) 98 07/04/20 00:25 67 15 64/31 (42) 99 07/04/20 00:20 71 17 67/31 (43) 99 07/04/20 00:15 74 7 69/32 (44) 99 07/04/20 00:13 74 10 67/29 (42) 98 07/04/20 00:07 75 14 68/26 (40) 100 07/04/20 00:05 97.5 71 13 68/26 (40) 100 07/04/20 00:04 61/37 (45) 07/04/20 00:00 99.5 69 22 75/29 (44) 99 07/03/20 22:00 80/33 (49) 07/03/20 21:30 99.8 88/38 (55) 07/03/20 21:00 Room Air 07/03/20 20:00 61 07/03/20 20:00 102.0 76 24 81/34 (50) 97 07/03/20 19:40 99.8 07/03/20 18:34 98.0 79 18 96/56 99 Room Air 07/03/20 18:00 93 07/03/20 18:00 99.5 93 20 104/37 (59) 94 07/03/20 17:52 Room Air 07/03/20 15:43 66 18 Room Air 07/03/20 15:43 98.0 68 18 102/47 98 Room Air 07/03/20 14:41 60 16 88/48 (61) 99 Room Air Intake and Output 07/03/20 07/04/20 19:00 07:00 Intake Total 905.0 ml Output Total 100 ml Balance 805.0 ml Intake Oral 0 ml IV Total 905.0 ml Output Urine Total 100 ml Laboratory Tests 07/03/20 15:25: Sodium Level 141, Potassium Level 4.1, Chloride Level 107, Carbon Dioxide Level 26, Anion Gap 8, Blood Urea Nitrogen 32H, Creatinine 2.4H, Estimat Glomerular Filtration Rate 19.1, Glucose Level 108H, Lactic Acid Level 2.30H, Calcium Level 8.6, Total Bilirubin 0.5, Aspartate Amino Transf (AST/SGOT) 16, Alanine Aminotransferase (ALT/SGPT) 14, Alkaline Phosphatase 35L, Total Creatine Kinase 56, Troponin I 0.070H, Pro-B-Type Natriuretic Peptide 4567H, Total Protein 6.6, Albumin 2.3L, Globulin 4.3, Albumin/Globulin Ratio 0.5L, Lipase 66L 07/03/20 16:14: White Blood Count 5.7, Red Blood Count 4.97, Hemoglobin 8.9L, Hematocrit 32.0L, Mean Corpuscular Volume 64L, Mean Corpuscular Hemoglobin 17.9L, Mean Corpuscular Hemoglobin Concent 27.9L, Red Cell Distribution Width 18.0H, Platelet Count 66L, Mean Platelet Volume 8.4, Neutrophils (%) (Auto) , Lymphocytes (%) (Auto) , Monocytes (%) (Auto) , Eosinophils (%) (Auto) , Basophils (%) (Auto) , Differential Total Cells Counted 100, Neutrophils % (Manual) 71, Lymphocytes % (Manual) 27, Monocytes % (Manual) 2, Eosinophils % (Manual) 0, Basophils % (Manual) 0, Band Neutrophils 0, Platelet Estimate DecreasedL, Platelet Morphology Normal, Hypochromasia 1+, Anisocytosis 1+, Microcytosis 1+, Urine Color Yellow, Urine Appearance Cloudy, Urine pH 6, Urine Specific [place] 1.015, Urine Protein 3+H, Urine Glucose (UA) Negative, Urine Ketones Negative, Urine Blood Negative, Urine Nitrite Negative, Urine Bilirubin Negative, Urine Urobilinogen Normal, Urine Leukocyte Esterase 3+H, Urine RBC , Urine WBC , Urine Squamous Epithelial Cells , Urine Bacteria 07/04/20 02:00: Sodium Level 141, Potassium Level 3.9, Chloride Level 112H, Carbon Dioxide Level 18L, Anion Gap 11, Blood Urea Nitrogen 33H, Creatinine 2.6H, Estimat Glomerular Filtration Rate 17.4, Glucose Level 155H, Calcium Level 6.6#L, Troponin I 0.084H , Pro-B-Type Natriuretic Peptide 09531O, White Blood Count 14.2#H, Red Blood Count 3.86L, Hemoglobin 6.9*L, Hematocrit 24.4L, Mean Corpuscular Volume 63L, Mean Corpuscular Hemoglobin 17.8L, Mean Corpuscular Hemoglobin Concent 28.2L, Red Cell Distribution Width 17.9H, Platelet Count 35L, Mean Platelet Volume 5.7L , Neutrophils (%) (Auto) , Lymphocytes (%) (Auto) , Monocytes (%) (Auto) , Eosinophils (%) (Auto) , Basophils (%) (Auto) , Differential Total Cells Counted 100, Neutrophils % (Manual) 79H, Lymphocytes % (Manual) 7L, Monocytes % (Manual) 2, Eosinophils % (Manual) 1, Basophils % (Manual) 0, Band Neutrophils 11H, Platelet Estimate DecreasedL, Platelet Morphology Normal, Hypochromasia 2+, Anisocytosis 1+, Microcytosis 2+, Tear Drop Cells Occasional, Ovalocytes Occasional, Schistocytes Occasional 2/6/21 06:00: Lactic Acid Level 3.40H, White Blood Count 11.9H, Red Blood Count 4.92, Hemoglobin 8.7L, Hematocrit 31.3L, Mean Corpuscular Volume 64L, Mean Corpuscular Hemoglobin 17.7L, Mean Corpuscular Hemoglobin Concent 27.9L, Red Cell Distribution Width 17.9H, Platelet Count 28L, Mean Platelet Volume 3.9L, Neutrophils (%) (Auto) , Lymphocytes (%) (Auto) , Monocytes (%) (Auto) , Eosinophils (%) (Auto) , Basophils (%) (Auto) , Differential Total Cells Counted 100, Neutrophils % (Manual) 64, Lymphocytes % (Manual) 22, Monocytes % (Manual) 4, Eosinophils % (Manual) 0, Basophils % (Manual) 0, Band Neutrophils 10H, Platelet Estimate DecreasedL, Platelet Morphology Normal, Hypochromasia 1+, Anisocytosis 1+ Height (Feet): 5 Height (Inches): 1.00 Weight (Pounds): 137 General Appearance: confused EENT: normal ENT inspection Neck: non-tender, supple Cardiovascular: normal rate, regular rhythm Respiratory/Chest: crackles/rales Abdomen: non tender, soft Extremities: non-tender Edema: mild edema Neurologic: responsive Skin: warm/dry Assessment/Plan Status: stable Assessment/Plan: 1. Septic shock - In ICU and on pressor by representative government relations. 2. Sepsis - cont Zosyn and vanco IV. ID is following. 3. ARF - on IVF and IV antibiotic. 4. Elevated Troponin most likely due to sepsis and ARF 5. Thrombocytopenia - will consult Dr Yeung. D/C ASA for now. 6. Pneumonia - cont IV abx as above. 7. UTI - cont above antibiotic and follow cultures. 8. Pacemaker - representative government relations is following. 9. Generalized weakness - will order PT and OT once patient improves. 10. Anemia - stable now. 11. Hyperlipidemia - cont home meds. 12. HX of HTN off meds due to septic shock. 13, Dementia - on namenda 5 mg daily. Matthew Pak MD Jul 04, 2020 11:19
--- NOTE | 2020-07-04 11:45 | NUR ---
NURSE NOTES: Tylenol 650mg po given for temp of 101.5.
[2020-07-04] MEDS: Norepinephrine 4mg/NS Premix 250 ML IV SCH (12:00)
--- NOTE | 2020-07-04 12:00 | NUR ---
NURSE NOTES: Lab called to inform teletypewriter operator that the COVID PCR that was collected yesterday leaked and test was unable to be performed. Will get a new swab from cnc supervisor and re-swab.
--- NOTE | 2020-07-04 12:30 | NUR ---
NURSE NOTES: Dr Pak aware of platelet level of 28. Type and screen done this morning in the event that pt will need to be transfused. No transfusion orders given at this time.
--- NOTE | 2020-07-04 14:10 | NUR ---
NURSE NOTES: Dr Abbott at bedside assessing pt. Updated him on pt's current condition. Informed of Troponin level 0.144. No new orders given at this time. COVID PCR swab collected and sent down to the lab.
--- NOTE | 2020-07-04 14:25 | Infectious Diseases Prog Note ---
Assessment/Plan Problems: (1) Acute pyelonephritis Assessment & Plan: complicated with sepsis and shock due to gram-negative rods, will upgrade antibiotics to meropenem pending blood culture and urine culture identification and sensitivity (2) Bilateral pneumonia Assessment & Plan: With interstitial infiltrations on chest x-ray, we will upgrade zosyn 2 meropenem to cover for sepsis due to gram-negative rods, stop vancomycin, monitor chest x-ray, aspiration precaution. Patient was tested recently for CO VID 19 with PCR test couple of days ago and it was negative as per the primary (3) Septic shock Assessment & Plan: due to the above with gram-negative rods source most likely urine infection and pyelonephritis, will upgrade antibiotics to meropenem, continue pressors for blood pressure support, monitor final blood culture result (4) Acute renal failure Assessment & Plan: Suspect due to dehydration continue fluids, avoid nephrotoxic's, close monitor of renal function, nephrology is following (5) Dehydration Assessment & Plan: Continue IV fluids for hydration and monitor electrolytes (6) Generalized weakness Assessment & Plan: Supportive care, PT OT eval Subjective Constitutional: Reports: fever, chills, fatigue HEENT: Reports: no symptoms Respiratory: Reports: dry cough Breasts: Reports: no symptoms Cardiovascular: Reports: no symptoms Gastrointestinal/Abdominal: Reports: no symptoms Genitourinary: Reports: no symptoms Neurologic: Reports: weakness, confusion Psychiatric: Reports: no symptoms Skin: Reports: no symptoms Endocrine: Reports: no symptoms Hematologic: Reports: no symptoms Musculoskeletal: Reports: no symptoms Allergies: Coded Allergies: No Known Allergies (Unverified , 07/03/20) she was febrile last night and hypotensive and subsequently transferred to ICU for blood pressure support with improvement in her temperature Objective Last 24 Hour Vital Signs Date Time Temp Pulse Resp B/P (MAP) Pulse Ox O2 Delivery O2 Flow Rate FiO2 07/04/20 12:15 100.9 07/04/20 12:00 100.9 65 24 108/34 (58) 100 07/04/20 12:00 Room Air 07/04/20 12:00 101/46 07/04/20 12:00 101/46 07/04/20 11:00 105/39 07/04/20 11:00 64 26 105/39 (61) 93 07/04/20 10:00 95 27 101/42 (61) 99 07/04/20 10:00 101/42 07/04/20 09:00 98 27 106/35 (58) 100 07/04/20 09:00 106/35 07/04/20 08:30 77 95/31 (52) 99 07/04/20 08:00 Room Air 07/04/20 08:00 94/28 07/04/20 08:00 100.2 77 27 94/28 (50) 96 07/04/20 07:00 74 32 103/39 (60) 96 07/04/20 07:00 103/39 07/04/20 06:00 130/86 07/04/20 06:00 95 30 130/86 (101) 94 07/04/20 05:30 65 21 117/44 (68) 97 07/04/20 05:00 119/45 07/04/20 05:00 73 25 119/45 (69) 98 07/04/20 04:30 66 17 111/37 (61) 93 07/04/20 04:15 62 23 108/42 (64) 93 07/04/20 04:06 60 07/04/20 04:00 Room Air 07/04/20 04:00 107/41 07/04/20 04:00 97.6 64 23 107/41 (63) 92 07/04/20 03:45 74 27 103/43 (63) 91 07/04/20 03:30 64 17 103/39 (60) 92 07/04/20 03:15 90 46 123/39 (67) 88 07/04/20 03:00 60 20 143/44 (77) 97 07/04/20 03:00 143/44 07/04/20 02:59 61 19 150/47 (81) 97 07/04/20 02:45 61 24 135/54 (81) 98 07/04/20 02:40 120/50 07/04/20 02:37 61 20 120/50 (73) 99 07/04/20 02:30 60 23 53/42 (46) 99 07/04/20 02:30 53/42 07/04/20 02:22 60 32 77/59 (65) 99 07/04/20 02:15 61 28 67/31 (43) 99 07/04/20 02:05 61 23 71/31 (44) 99 07/04/20 02:00 60 32 44/26 (32) 100 07/04/20 02:00 71/31 07/04/20 01:45 60 28 70/26 (41) 99 07/04/20 01:38 70 41 72/36 (48) 99 07/04/20 01:30 70 46 76/32 (47) 99 07/04/20 01:29 66 28 83/33 (50) 99 07/04/20 01:15 61 22 75/41 (52) 99 07/04/20 01:06 60 20 71/31 (44) 99 07/04/20 01:00 70 13 75/35 (48) 98 07/04/20 00:53 65 20 81/61 (68) 100 07/04/20 00:45 61 21 65/31 (42) 99 07/04/20 00:41 56 20 69/27 (41) 99 07/04/20 00:34 68 19 76/31 (46) 98 07/04/20 00:30 66 21 57/45 (49) 98 07/04/20 00:25 67 15 64/31 (42) 99 07/04/20 00:20 71 17 67/31 (43) 99 07/04/20 00:15 74 7 69/32 (44) 99 07/04/20 00:13 74 10 67/29 (42) 98 07/04/20 00:07 75 14 68/26 (40) 100 07/04/20 00:05 97.5 71 13 68/26 (40) 100 07/04/20 00:04 61/37 (45) 07/04/20 00:00 99.5 69 22 75/29 (44) 99 07/03/20 22:00 80/33 (49) 07/03/20 21:30 99.8 88/38 (55) 07/03/20 21:00 Room Air 07/03/20 20:00 61 07/03/20 20:00 102.0 76 24 81/34 (50) 97 07/03/20 19:40 99.8 07/03/20 18:34 98.0 79 18 96/56 99 Room Air 07/03/20 18:00 93 07/03/20 18:00 99.5 93 20 104/37 (59) 94 07/03/20 17:52 Room Air 07/03/20 15:43 66 18 Room Air 07/03/20 15:43 98.0 68 18 102/47 98 Room Air 07/03/20 14:41 60 16 88/48 (61) 99 Room Air Height (Feet): 5 Height (Inches): 1.00 Weight (Pounds): 137 General Appearance: WD/WN, no acute distress HEENT: normocephalic, atraumatic, anicteric, mucous membranes moist, PERRL Respiratory/Chest: chest wall non-tender, no respiratory distress, no accessory muscle use, decreased breath sounds, crackles/rales Cardiovascular: normal peripheral pulses, normal rate, regular rhythm, no gallop/murmur, no JVD Abdomen: normal bowel sounds, no organomegaly, non distended, no mass, no scars Extremities: no cyanosis, no clubbing Skin: no rash, no lesions, no ulcers Neurologic/Psychiatric: alert, responsive, normal mood/affect Lymphatic: no neck adenopathy, no groin adenopathy Musculoskeletal: normal muscle bulk, no effusion Microbiology Date/Time Source Procedure Growth Status 07/03/20 17:01 Rectum Received 07/03/20 16:14 Urine,Clean Catch Urine Culture - Preliminary Gram Negative Jose Antonio Resulted 07/03/20 15:35 Blood Blood Culture - Preliminary Resulted 07/03/20 15:25 Blood Blood Culture - Preliminary Resulted Laboratory Tests Test 07/03/20 15:25 07/03/20 16:14 07/04/20 02:00 07/04/20 06:00 Sodium Level 141 MMOL/L (136-145) 141 MMOL/L (136-145) Potassium Level 4.1 MMOL/L (3.5-5.1) 3.9 MMOL/L (3.5-5.1) Chloride Level 107 MMOL/L (98-107) 112 MMOL/L (98-107) H Carbon Dioxide Level 26 MMOL/L (21-32) 18 MMOL/L (21-32) L Anion Gap 8 mmol/L (5-15) 11 mmol/L (5-15) Blood Urea Nitrogen 32 mg/dL (7-18) H 33 mg/dL (7-18) H Creatinine 2.4 MG/DL (0.55-1.30) H 2.6 MG/DL (0.55-1.30) H Estimat Glomerular Filtration Rate 19.1 mL/min (>60) 17.4 mL/min (>60) Glucose Level 108 MG/DL (74-106) H 155 MG/DL (74-106) H Lactic Acid Level 2.30 mmol/L (0.4-2.0) H 3.40 mmol/L (0.4-2.0) H Calcium Level 8.6 MG/DL (8.5-10.1) 6.6 MG/DL (8.5-10.1) #L Total Bilirubin 0.5 MG/DL (0.2-1.0) Aspartate Amino Transf (AST/SGOT) 16 U/L (15-37) Alanine Aminotransferase (ALT/SGPT) 14 U/L (12-78) Alkaline Phosphatase 35 U/L (46-116) L Total Creatine Kinase 56 U/L (26-308) Troponin I 0.070 ng/mL (0.000-0.056) 0.084 ng/mL (0.000-0.056) Pro-B-Type Natriuretic Peptide 4567 pg/mL (0-125) H 87503 pg/mL (0-125) H Total Protein 6.6 G/DL (6.4-8.2) Albumin 2.3 G/DL (3.4-5.0) L Globulin 4.3 g/dL Albumin/Globulin Ratio 0.5 (1.0-2.7) L Lipase 66 U/L (73-393) L White Blood Count 5.7 K/UL (4.8-10.8) 14.2 K/UL (4.8-10.8) #H 11.9 K/UL (4.8-10.8) H Red Blood Count 4.97 M/UL (4.20-5.40) 3.86 M/UL (4.20-5.40) L 4.92 M/UL (4.20-5.40) Hemoglobin 8.9 G/DL (12.0-16.0) L 6.9 G/DL (12.0-16.0) *L 8.7 G/DL (12.0-16.0) L Hematocrit 32.0 % (37.0-47.0) L 24.4 % (37.0-47.0) L 31.3 % (37.0-47.0) L Mean Corpuscular Volume 64 FL (80-99) L 63 FL (80-99) L 64 FL (80-99) L Mean Corpuscular Hemoglobin 17.9 PG (27.0-31.0) L 17.8 PG (27.0-31.0) L 17.7 PG (27.0-31.0) L Mean Corpuscular Hemoglobin Concent 27.9 G/DL (32.0-36.0) L 28.2 G/DL (32.0-36.0) L 27.9 G/DL (32.0-36.0) L Red Cell Distribution Width 18.0 % (11.6-14.8) H 17.9 % (11.6-14.8) H 17.9 % (11.6-14.8) H Platelet Count 66 K/UL (150-450) L 35 K/UL (150-450) L 28 K/UL (150-450) L Mean Platelet Volume 8.4 FL (6.5-10.1) 5.7 FL (6.5-10.1) L 3.9 FL (6.5-10.1) L Neutrophils (%) (Auto) % (45.0-75.0) % (45.0-75.0) % (45.0-75.0) Lymphocytes (%) (Auto) % (20.0-45.0) % (20.0-45.0) % (20.0-45.0) Monocytes (%) (Auto) % (1.0-10.0) % (1.0-10.0) % (1.0-10.0) Eosinophils (%) (Auto) % (0.0-3.0) % (0.0-3.0) % (0.0-3.0) Basophils (%) (Auto) % (0.0-2.0) % (0.0-2.0) % (0.0-2.0) Differential Total Cells Counted 100 100 100 Neutrophils % (Manual) 71 % (45-75) 79 % (45-75) H 64 % (45-75) Lymphocytes % (Manual) 27 % (20-45) 7 % (20-45) L 22 % (20-45) Monocytes % (Manual) 2 % (1-10) 2 % (1-10) 4 % (1-10) Eosinophils % (Manual) 0 % (0-3) 1 % (0-3) 0 % (0-3) Basophils % (Manual) 0 % (0-2) 0 % (0-2) 0 % (0-2) Band Neutrophils 0 % (0-8) 11 % (0-8) H 10 % (0-8) H Platelet Estimate Decreased L Decreased L Decreased L Platelet Morphology Normal Normal Normal Hypochromasia 1+ 2+ 1+ Anisocytosis 1+ 1+ 1+ Microcytosis 1+ 2+ Urine Color Yellow Urine Appearance Cloudy Urine pH 6 (4.5-8.0) Urine Specific [place] 1.015 (1.005-1.035) Urine Protein 3+ (NEGATIVE) H Urine Glucose (UA) Negative (NEGATIVE) Urine Ketones Negative (NEGATIVE) Urine Blood Negative (NEGATIVE) Urine Nitrite Negative (NEGATIVE) Urine Bilirubin Negative (NEGATIVE) Urine Urobilinogen Normal MG/DL (0.0-1.0) Urine Leukocyte Esterase 3+ (NEGATIVE) H Urine RBC /HPF (0 - 2) Urine WBC /HPF (0 - 2) Urine Squamous Epithelial Cells /LPF (NONE/OCC) Urine Bacteria /HPF (NONE) Tear Drop Cells Occasional Ovalocytes Occasional Schistocytes Occasional Test 07/04/20 12:00 Lactic Acid Level 1.80 mmol/L (0.4-2.0) Troponin I 0.144 ng/mL (0.000-0.056) Random Vancomycin Level 12.1 ug/mL Current Medications Medications (Trade) Dose Ordered Sig/Kallie Route PRN Reason Start Time Stop Time Status Last Admin Dose Admin Acetaminophen (Tylenol) 650 mg Q4H PRN ORAL Temp >100.5 07/03/20 18:30 08/02/20 18:29 07/04/20 11:45 Acetaminophen (Tylenol) 650 mg Q4H PRN ORAL pain 07/03/20 18:45 08/02/20 18:44 Albuterol Sulfate (Proventil MDI) 1 puff Q4H PRN INH Shortness of Breath 07/03/20 18:45 10/01/20 18:44 Chlorhexidine Gluconate (Susan-Hex 2%) 1 applic DAILY@2000 TOPIC 07/04/20 20:00 10/02/20 19:59 Duloxetine HCl (Cymbalta) 30 mg DAILY ORAL 07/04/20 09:00 10/02/20 08:59 07/04/20 08:55 Ferrous Sulfate (Feosol) 325 mg DAILY ORAL 07/04/20 09:00 10/02/20 08:59 07/04/20 08:30 Levothyroxine Sodium (Synthroid) 112 mcg DAILY@0630 ORAL 07/04/20 06:30 08/03/20 06:29 Magnesium Hydroxide (Mom) 30 ml DAILY ORAL 07/04/20 09:00 08/03/20 08:59 07/04/20 08:31 Memantine (Namenda) 5 mg DAILY ORAL 07/04/20 09:00 08/03/20 08:59 07/04/20 08:31 Mirtazapine (Remeron) 7.5 mg BEDTIME ORAL 07/03/20 21:00 10/01/20 20:59 07/03/20 20:57 Multivitamins (Multivitamins) 1 tab DAILY ORAL 07/04/20 09:00 08/03/20 08:59 07/04/20 08:31 Norepinephrine Bitartrate 250 ml @ 0 mls/hr Q24H IV 07/04/20 11:50 07/07/20 11:49 07/04/20 12:00 Pantoprazole (Protonix) 40 mg DAILY ORAL 07/04/20 09:00 08/03/20 08:59 07/04/20 08:31 Piperacillin Sod/ Tazobactam Sod 3.375 gm/Sodium Chloride 110 ml @ 27.5 mls/hr Q12HR IVPB 07/03/20 21:00 07/10/20 20:59 07/04/20 08:30 Pravastatin Sodium (Pravachol) 10 mg BEDTIME ORAL 07/03/20 21:00 08/02/20 20:59 07/03/20 20:57 Sodium Chloride 1,000 ml @ 75 mls/hr [id number] IV 07/03/20 18:30 08/02/20 18:29 07/04/20 08:30 Spironolactone (Aldactone) 12.5 mg DAILY ORAL 07/04/20 09:00 08/03/20 08:59 07/04/20 08:30 Thiamine HCl (Vitamin B1) 100 mg DAILY ORAL 07/04/20 09:00 08/03/20 08:59 07/04/20 08:31 Vancomycin HCl (Vanco pharmacy to dose) 1 ea DAILY PRN MISC Per rx protocol 07/03/20 19:00 08/02/20 18:59 Vancomycin HCl 1 gm/Dextrose 275 ml @ 183.708 mls/hr ONCE IVPB 07/04/20 14:00 07/04/20 16:00 07/04/20 13:36 Zolpidem Tartrate (Ambien) 5 mg BEDTIME PRN ORAL Insomnia 07/03/20 18:45 07/10/20 18:44 Isma Schaffer M.D. Jul 04, 2020 14:25
--- NOTE | 2020-07-04 14:45 | NUR ---
NURSE NOTES: Venous Duplex negative. SCDs applied.
--- NOTE | 2020-07-04 15:15 | NUR ---
NURSE NOTES: Dr Schaffer at bedside assessing pt. Updated him on pt's current condition. Informed of blood culture results. NS drip increased to 100mL/hr.
[2020-07-04] MEDS: Meropenem 500mg/NS 55ml IVPB SCH ×2 (15:38)
--- NOTE | 2020-07-04 16:15 | NUR ---
NURSE NOTES: Pt observed sleeping/drowsy. Easily arousable. Turned and repositioned for comfort.
--- NOTE | 2020-07-04 17:42 | NUR ---
NURSE NOTES: Pt fully cleaned and linens changed. Pt had a small formed brown BM. Purewick changed. Php Website Developer fed pt dinner; ate about 25% of Kosher plate. Tolerated well. No swallowing issues noted.
--- NOTE | 2020-07-04 18:10 | Cardiac Electrophysiology PN ---
Subjective Subjective [id number] Objective Last 24 Hour Vital Signs Date Time Temp Pulse Resp B/P (MAP) Pulse Ox O2 Delivery O2 Flow Rate FiO2 07/04/20 17:00 61 18 81/48 (59) 100 07/04/20 16:00 98.1 60 22 142/50 (80) 98 07/04/20 16:00 Room Air 07/04/20 15:00 61 14 132/53 (79) 100 07/04/20 14:00 98.1 63 20 138/48 (78) 99 07/04/20 13:00 63 24 118/41 (66) 99 07/04/20 12:15 100.9 07/04/20 12:00 100.9 65 24 108/34 (58) 100 07/04/20 12:00 Room Air 07/04/20 12:00 101/46 07/04/20 12:00 101/46 07/04/20 11:00 105/39 07/04/20 11:00 64 26 105/39 (61) 93 07/04/20 10:00 95 27 101/42 (61) 99 07/04/20 10:00 101/42 07/04/20 09:00 98 27 106/35 (58) 100 07/04/20 09:00 106/35 07/04/20 08:30 77 95/31 (52) 99 07/04/20 08:00 Room Air 07/04/20 08:00 94/28 07/04/20 08:00 100.2 77 27 94/28 (50) 96 07/04/20 07:00 74 32 103/39 (60) 96 07/04/20 07:00 103/39 07/04/20 06:00 130/86 07/04/20 06:00 95 30 130/86 (101) 94 07/04/20 05:30 65 21 117/44 (68) 97 07/04/20 05:00 119/45 07/04/20 05:00 73 25 119/45 (69) 98 07/04/20 04:30 66 17 111/37 (61) 93 07/04/20 04:15 62 23 108/42 (64) 93 07/04/20 04:06 60 07/04/20 04:00 Room Air 07/04/20 04:00 107/41 07/04/20 04:00 97.6 64 23 107/41 (63) 92 07/04/20 03:45 74 27 103/43 (63) 91 07/04/20 03:30 64 17 103/39 (60) 92 07/04/20 03:15 90 46 123/39 (67) 88 07/04/20 03:00 60 20 143/44 (77) 97 07/04/20 03:00 143/44 07/04/20 02:59 61 19 150/47 (81) 97 07/04/20 02:45 61 24 135/54 (81) 98 07/04/20 02:40 120/50 07/04/20 02:37 61 20 120/50 (73) 99 07/04/20 02:30 60 23 53/42 (46) 99 07/04/20 02:30 53/42 07/04/20 02:22 60 32 77/59 (65) 99 07/04/20 02:15 61 28 67/31 (43) 99 07/04/20 02:05 61 23 71/31 (44) 99 07/04/20 02:00 60 32 44/26 (32) 100 07/04/20 02:00 71/31 07/04/20 01:45 60 28 70/26 (41) 99 07/04/20 01:38 70 41 72/36 (48) 99 07/04/20 01:30 70 46 76/32 (47) 99 07/04/20 01:29 66 28 83/33 (50) 99 07/04/20 01:15 61 22 75/41 (52) 99 07/04/20 01:06 60 20 71/31 (44) 99 07/04/20 01:00 70 13 75/35 (48) 98 07/04/20 00:53 65 20 81/61 (68) 100 07/04/20 00:45 61 21 65/31 (42) 99 07/04/20 00:41 56 20 69/27 (41) 99 07/04/20 00:34 68 19 76/31 (46) 98 07/04/20 00:30 66 21 57/45 (49) 98 07/04/20 00:25 67 15 64/31 (42) 99 07/04/20 00:20 71 17 67/31 (43) 99 07/04/20 00:15 74 7 69/32 (44) 99 07/04/20 00:13 74 10 67/29 (42) 98 07/04/20 00:07 75 14 68/26 (40) 100 07/04/20 00:05 97.5 71 13 68/26 (40) 100 07/04/20 00:04 61/37 (45) 07/04/20 00:00 99.5 69 22 75/29 (44) 99 07/03/20 22:00 80/33 (49) 07/03/20 21:30 99.8 88/38 (55) 07/03/20 21:00 Room Air 07/03/20 20:00 61 07/03/20 20:00 102.0 76 24 81/34 (50) 97 07/03/20 19:40 99.8 07/03/20 18:34 98.0 79 18 96/56 99 Room Air Intake and Output 07/03/20 07/04/20 19:00 07:00 Intake Total 905.0 ml Output Total 100 ml Balance 805.0 ml Intake Oral 0 ml IV Total 905.0 ml Output Urine Total 100 ml Laboratory Tests Test 07/04/20 02:00 07/04/20 06:00 07/04/20 12:00 White Blood Count 14.2 K/UL (4.8-10.8) #H 11.9 K/UL (4.8-10.8) H Red Blood Count 3.86 M/UL (4.20-5.40) L 4.92 M/UL (4.20-5.40) Hemoglobin 6.9 G/DL (12.0-16.0) *L 8.7 G/DL (12.0-16.0) L Hematocrit 24.4 % (37.0-47.0) L 31.3 % (37.0-47.0) L Mean Corpuscular Volume 63 FL (80-99) L 64 FL (80-99) L Mean Corpuscular Hemoglobin 17.8 PG (27.0-31.0) L 17.7 PG (27.0-31.0) L Mean Corpuscular Hemoglobin Concent 28.2 G/DL (32.0-36.0) L 27.9 G/DL (32.0-36.0) L Red Cell Distribution Width 17.9 % (11.6-14.8) H 17.9 % (11.6-14.8) H Platelet Count 35 K/UL (150-450) L 28 K/UL (150-450) L Mean Platelet Volume 5.7 FL (6.5-10.1) L 3.9 FL (6.5-10.1) L Neutrophils (%) (Auto) % (45.0-75.0) % (45.0-75.0) Lymphocytes (%) (Auto) % (20.0-45.0) % (20.0-45.0) Monocytes (%) (Auto) % (1.0-10.0) % (1.0-10.0) Eosinophils (%) (Auto) % (0.0-3.0) % (0.0-3.0) Basophils (%) (Auto) % (0.0-2.0) % (0.0-2.0) Differential Total Cells Counted 100 100 Neutrophils % (Manual) 79 % (45-75) H 64 % (45-75) Lymphocytes % (Manual) 7 % (20-45) L 22 % (20-45) Monocytes % (Manual) 2 % (1-10) 4 % (1-10) Eosinophils % (Manual) 1 % (0-3) 0 % (0-3) Basophils % (Manual) 0 % (0-2) 0 % (0-2) Band Neutrophils 11 % (0-8) H 10 % (0-8) H Platelet Estimate Decreased L Decreased L Platelet Morphology Normal Normal Hypochromasia 2+ 1+ Anisocytosis 1+ 1+ Microcytosis 2+ Tear Drop Cells Occasional Ovalocytes Occasional Schistocytes Occasional Sodium Level 141 MMOL/L (136-145) Potassium Level 3.9 MMOL/L (3.5-5.1) Chloride Level 112 MMOL/L (98-107) H Carbon Dioxide Level 18 MMOL/L (21-32) L Anion Gap 11 mmol/L (5-15) Blood Urea Nitrogen 33 mg/dL (7-18) H Creatinine 2.6 MG/DL (0.55-1.30) H Estimat Glomerular Filtration Rate 17.4 mL/min (>60) Glucose Level 155 MG/DL (74-106) H Calcium Level 6.6 MG/DL (8.5-10.1) #L Troponin I 0.084 ng/mL (0.000-0.056) 0.144 ng/mL (0.000-0.056) Pro-B-Type Natriuretic Peptide 55476 pg/mL (0-125) H Lactic Acid Level 3.40 mmol/L (0.4-2.0) H 1.80 mmol/L (0.4-2.0) Random Vancomycin Level 12.1 ug/mL Microbiology Date/Time Source Procedure Growth Status 07/03/20 17:01 Rectum Received 07/03/20 16:14 Urine,Clean Catch Urine Culture - Preliminary Gram Negative Jose Antonio Resulted 07/03/20 15:35 Blood Blood Culture - Preliminary Resulted 07/03/20 15:25 Blood Blood Culture - Preliminary Resulted Jorge Abbott MD Jul 04, 2020 18:10
--- NOTE | 2020-07-04 18:19 | NUR ---
NURSE NOTES: Was asked by Dr Abbott to call correction to ask about pacemaker roller gold leaf. Nurse in the correction was unable to provide me with information. Dr Abbott made aware. Nurse from [place] also reported PCR results were not back from when pt was tested on 06/29. She was also unable to give me information regarding pt's flu and PNA vaccines.
--- NOTE | 2020-07-04 19:12 | NUR ---
NURSE HAND-OFF REPORT: Latest Vital Signs: Temperature 98.1 , Pulse 61 , B/P 106 /51 , Respiratory Rate 24 , O2 SAT 99 , Room Air . Vital Sign Comment: EKG Rhythm: A-Paced Rhythm change?: N MD Notified?: - MD Response: Latest Parada Fall Score: 45 Fall Risk: High Risk Safety Measures: Call light Within Reach, Bed Alarm Zone 1, Side Rails Side Rails x2, Bed position Low and Locked. Fall Precautions: Yellow Socks Door Sign Report given to EMILIE Kolb.
[2020-07-04] MEDS: Dyna-Hex 2% Top Sol 2oz TOPIC SCH (19:36)
--- NOTE | 2020-07-04 19:45 | NUR ---
NURSE NOTES: PATIENT AWOKE, FOLLOWED COMMANDS, DENIED PAIN OR SOB, O2 SATURATION 96% ON ROOM AIR, HR 60'S/MIN A-PACED, PPL TO BOTH FA AND TLC TO RIGHT FEMORAL, INTACT AND PATENT, ONGOING IV FLUID NS AT 100ML/HR AND LEVOPHED 4MCG/MIN VIA TLC, KEPT HOB 30 DEGREES AND ASPIRATION PRECAUTION, PROVIDED CALL LIGHT WITHIN REACH, ON BED ALARM AND LOCKED, MADE LOWER BED POSITION, WILL CONTINUE TO MONITOR.
--- NOTE | 2020-07-04 19:59 | Consultation ---
DATE OF CONSULTATION: 07/04/2020 CARDIOLOGY CONSULTATION CONSULTING PHYSICIAN: Jorge Abbott MD REFERRING PHYSICIAN: Mtathew Pak MD REASON FOR CONSULTATION: Hypotension. HISTORY OF PRESENT ILLNESS: The patient is an 89-year-old Lebanese lady with history of hypertension, congestive heart failure, arthritis, and dementia, who was brought in from assisted living for generalized weakness and multiple falls. The patient also had been hypotensive for 2-3 days. In the emergency room, the patient's blood pressure was in the 80s, saturation of 99% on room air, and pulse of 60. The patient was not in respiratory distress initially. Subsequently, the patient became hypotensive overnight and the emergency room physician placed a central line and the patient was started on pressors. At the time of my evaluation, the patient is in intensive care unit on 6 mcg of Levophed as well as normal saline 75 mL/h. Troponin was also mildly elevated. REVIEW OF SYSTEMS: Negative other than what was mentioned in the history of present illness. PAST MEDICAL HISTORY: As mentioned above. The patient also has a pacemaker. MEDICATIONS: Per reconciliation. [facility] Does not [facility] or drink alcohol. PHYSICAL EXAMINATION: VITAL SIGNS: Show blood pressure of 81/48, pulse is 61, respirations 18. HEAD AND NECK: Showed no JVD. LUNGS: Clear. CARDIOVASCULAR: Shows regular S1 and S2 with no gallop or murmur. ABDOMEN: Soft. EXTREMITIES: No pitting edema. LABORATORY AND DIAGNOSTIC DATA: Labs show white count of 11.9, hemoglobin was 6.9 and currently 8.7, hematocrit 31, and platelet count is only 28. Sodium 141, potassium 3.9, BUN 32, creatinine 2.8, and glucose . Troponin 0.084 and 0.144. BNP is 12,096. Echocardiogram, EF of 65%. ASSESSMENT AND PLAN: 1. Elevated troponin of 0.08 and 0.144. It could be due to demand ischemia in this patient who also has renal failure with creatinine of 2.6. The patient also was admitted with hemoglobin of 6.9. We cannot give the patient aspirin or Plavix in view of platelet count of only 28. Cannot give beta-lopez due to hypotension. 2. Septic shock. The patient is already on IV fluid and IV antibiotic as well as Levophed. The patient is on meropenem. I will discontinue Aldactone. 3. Hypothyroidism, on Synthroid. 4. Hyperlipidemia, on Pravachol. 5. Dementia. 6. History of pacemaker. We will try to find the brand of the pacemaker and interrogate it for further evaluation. Thank you very much for allowing me to participate in the care of this patient. Please do not hesitate to contact me for any questions regarding my evaluation. Jorge Abbott M.D. DR: Pasha JOB#: [id number] CC:
--- NOTE | 2020-07-04 20:59 | NUR ---
NURSE NOTES: PATIENT CONSUMED 1 PUDDING AND JUICE, NO COUGH SIGN, SWALLOWING WELL AT THIS TIME, WILL CONTINUE PLAN OF CARE.
[2020-07-04] MEDS ORDERED: Meropenem 1 GM in NS 55 ML IVPB SCH (22:00)
--- NOTE | 2020-07-04 23:41 | NUR ---
NURSE NOTES: PATIENT ASLEEP STATUS, HR 60/MIN A-PACED, BP 113/44MG/DL ON LEVOPHED 4MCG/MIN, WILL CONTINUE TO MONITOR.
[2020-07-05] VITALS (29 sets, daily range): BP systolic 87–143; BP diastolic 40–93
--- NOTE | 2020-07-05 01:30 | NUR ---
NURSE NOTES: VSS ON LEVOPHED 4MCG/MIN, NO PAIN OR SOB NOTED AT THIS TIME.
[2020-07-05] MEDS: Norepinephrine 4mg/NS Premix 250 ML IV SCH ×3 (02:42→18:30)
[2020-07-05] MEDS: Meropenem 500mg/NS 55ml IVPB SCH ×4 (02:42→14:10)
--- NOTE | 2020-07-05 03:20 | NUR ---
NURSE NOTES: PATIENT ASLEEP STATUS, NO ACUTE DISTRESS NOTED.
--- NOTE | 2020-07-05 05:53 | NUR ---
NURSE NOTES: MORNING CARE AND ORAL CARE WAS DONE.
--- NOTE | 2020-07-05 06:38 | NUR ---
NURSE NOTES: LE: HR 120-130'S/MIN A-FIB NOTED, PATIENT DENIED PAIN, ANXIETY OR SOB, WILL CONTINUE TO MONITOR.
[2020-07-05 06:45] LABS: HEMATOCRIT 27.9 % (37.0-47.0); HEMOGLOBIN 8.2 G/DL (12.0-16.0); MEAN CORPUSCULAR VOLUME 61 FL (80-99); PLATELET COUNT 72 K/UL (150-450); RED BLOOD COUNT 4.53 M/UL (4.20-5.40); RED CELL DISTRIBUTION WIDTH 17.7 % (11.6-14.8); WHITE BLOOD COUNT 16.6 K/UL (4.8-10.8)
[2020-07-05 06:57] LABS: CALCIUM 6.7 MG/DL (8.5-10.1); CREATININE 1.8 MG/DL (0.55-1.30); POTASSIUM 3.9 MMOL/L (3.5-5.1)
--- NOTE | 2020-07-05 07:15 | NUR ---
NURSE HAND-OFF REPORT: Latest Vital Signs: Temperature 98.2 , Pulse 123 , B/P 115 /93 , Respiratory Rate 28 , O2 SAT 95 , Room Air, O2 Flow Rate . Vital Sign Comment: EKG Rhythm: Atrial Fibrillation Rhythm change?: N MD Notified?: - MD Response: Latest Parada Fall Score: 45 Fall Risk: High Risk Safety Measures: Call light Within Reach, Bed Alarm Zone 1, Side Rails Side Rails x2, Bed position Low and Locked. Fall Precautions: Yellow Socks Door Sign Report given to EMILIE BROWN.
--- NOTE | 2020-07-05 07:19 | NUR ---
NURSE NOTES: Report received from EMILIE Kolb. Pt is observed laying in bed, opening eyes spontaneously and following simple commands. Pt has a Left upper chest Pacemaker ([employer] dual chamber MRI compatible: [id number]). 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 EKG done by previous nurse- will report findings to Dr Abbott. Pt has a pure wick in place draining urine. Skin warm and dry. Rt femoral TLC intact running Levophed @ 4mcg/min and NS at 100 ml/hr. Bed locked and in lowest position, with call light within reach. will resume plan of care.
[2020-07-05] MEDS ORDERED: dilTIAZem Premix 125mg/125ml 125 ML IVPB SCH (08:00)
[2020-07-05] MEDS: Milk of Magnesia 30ml Ud ORAL SCH (08:20)
[2020-07-05] MEDS: DULoxetine 30mg cap ORAL SCH (08:20)
[2020-07-05] MEDS: Midodrine 10mg tab ORAL SCH ×3 (08:21→17:43)
[2020-07-05] MEDS: Thiamine 100mg tab ORAL SCH (08:21)
[2020-07-05] MEDS: Memantine 10mg tab ORAL SCH (08:21)
--- NOTE | 2020-07-05 08:45 | NUR ---
NURSE NOTES: Cardizem drip started @ 10mg/hr, as ordered by Dr Abbott. Pt remains in A-Fib w/ RVR. Will monitor.
--- NOTE | 2020-07-05 10:00 | NUR ---
NURSE NOTES: Pt ate some breakfast and took morning medications crushed in apple sauce, without issue. Reassurance and reorientation provided as pt does have periods of confusion. No distress noted.
--- NOTE | 2020-07-05 11:40 | NUR ---
NURSE NOTES: Pt resting in bed, watching TV. No distress noted. Remains on room air. Cardizem running @ 10mg/hr and Levophed running @ 4mcg/min.
--- NOTE | 2020-07-05 13:00 | NUR ---
NURSE NOTES: Pt was able to feed herself lunch; assisted her with opening up packaging of food. No swallowing issues noted. Pt more verbal today than previously noted.
--- NOTE | 2020-07-05 14:23 | General Progress Note ---
Subjective Date patient seen: Jul 05, 2020 Time patient seen: 14:00 Constitutional: Reports: weakness HEENT: Reports: no symptoms Respiratory: Reports: no symptoms Gastrointestinal/Abdominal: Reports: no symptoms Genitourinary: Reports: no symptoms Neurologic/Psychiatric: Reports: weakness Hematologic/Lymphatic: Reports: anemia Allergies: Coded Allergies: No Known Allergies (Unverified , 07/03/20) Subjective Afebrile. no sob or chest pain. no nausea or vomiting. she is better today. Objective Last 24 Hour Vital Signs Date Time Temp Pulse Resp B/P (MAP) Pulse Ox O2 Delivery O2 Flow Rate FiO2 07/05/20 14:00 105 32 100/63 (75) 98 07/05/20 13:00 117 24 103/50 (67) 86 07/05/20 12:00 Room Air 07/05/20 12:00 98.6 96 25 97/60 (72) 100 07/05/20 12:00 100 07/05/20 11:50 102/51 07/05/20 11:00 103 26 99/64 (76) 98 07/05/20 10:00 110 27 93/43 (60) 07/05/20 09:30 116 27 92/57 (69) 07/05/20 09:00 122 26 104/54 (71) 07/05/20 08:45 111 24 97 Room Air 21 07/05/20 08:30 129 27 113/73 (86) 97 07/05/20 08:00 137 07/05/20 08:00 98.8 137 24 117/67 (84) 97 07/05/20 08:00 Room Air 07/05/20 07:30 123 23 102/57 (72) 97 07/05/20 07:00 123 28 115/93 (100) 95 07/05/20 06:30 123 18 118/87 (97) 89 07/05/20 06:00 62 24 124/50 (74) 97 07/05/20 05:00 63 20 121/43 (69) 99 07/05/20 04:00 Room Air 07/05/20 04:00 98.2 62 21 109/50 (69) 100 07/05/20 04:00 62 07/05/20 03:00 61 21 116/41 (66) 100 07/05/20 02:42 102/43 07/05/20 02:00 63 25 104/48 (66) 99 07/05/20 01:00 67 30 120/43 (68) 100 07/05/20 00:00 97.6 67 22 117/52 (73) 98 07/05/20 00:00 Room Air 07/04/20 23:00 60 23 113/40 (64) 99 07/04/20 22:00 63 22 105/45 (65) 98 07/04/20 21:00 61 27 94/44 (61) 94 07/04/20 20:00 61 07/04/20 20:00 97.6 61 25 102/40 (60) 99 07/04/20 20:00 Room Air 07/04/20 19:00 61 24 106/51 (69) 99 07/04/20 18:00 61 23 81/38 (52) 98 07/04/20 17:00 61 18 81/48 (59) 100 07/04/20 16:00 75 07/04/20 16:00 98.1 60 22 142/50 (80) 98 07/04/20 16:00 Room Air 07/04/20 15:00 61 14 132/53 (79) 100 Intake and Output 07/04/20 07/05/20 19:00 07:00 Intake Total 1892.50 ml 1985 ml Output Total 300 ml 700 ml Balance 1592.50 ml 1285 ml Intake Oral 250 ml 550 ml IV Total 1642.50 ml 1435 ml Output Urine Total 300 ml 700 ml # Bowel Movements 1 2 Laboratory Tests 07/05/20 04:15: White Blood Count 16.6H, Red Blood Count 4.53, Hemoglobin 8.2L, Hematocrit 27.9L , Mean Corpuscular Volume 61L, Mean Corpuscular Hemoglobin 18.1L, Mean Kami uscular Hemoglobin Concent 29.4L, Red Cell Distribution Width 17.7H, Platelet Count 72#L, Mean Platelet Volume 7.6, Neutrophils (%) (Auto) , Lymphocytes (%) (Auto) , Monocytes (%) (Auto) , Eosinophils (%) (Auto) , Basophils (%) (Auto) , Differential Total Cells Counted 100, Neutrophils % (Manual) 80H, Lymphocytes % (Manual) 14L, Monocytes % (Manual) 4, Eosinophils % (Manual) 2, Basophils % (Manual) 0, Band Neutrophils 0, Platelet Estimate DecreasedL, Platelet Morphology Normal, Hypochromasia 1+, Anisocytosis 1+, Microcytosis 1+, Target Cells , Tear Drop Cells Occasional, Schistocytes Occasional 07/05/20 04:57: Sodium Level 148H, Potassium Level 3.9, Chloride Level 118H, Carbon Dioxide Level 19L, Anion Gap 11, Blood Urea Nitrogen 31H, Creatinine 1.8H, Estimat Glomerular Filtration Rate 26.6, Glucose Level 88, Calcium Level 6.7L, Troponin I 0.292H, Digoxin Level 0.6L Height (Feet): 5 Height (Inches): 1.00 Weight (Pounds): 137 General Appearance: no apparent distress, alert Neck: non-tender, supple Cardiovascular: normal rate, regular rhythm Respiratory/Chest: lungs clear, normal breath sounds, no respiratory distress Abdomen: non tender, soft Extremities: non-tender Edema: mild edema Neurologic: alert, responsive Skin: warm/dry Assessment/Plan Status: stable Assessment/Plan: 1. Septic shock - doing better. In ICU and on pressor by extension course counselor. 2. Sepsis - cont IV abx. ID is following. 3. ARF - improved. cont IVF and IV antibiotic. 4. Elevated Troponin most likely due to sepsis and ARF 5. Thrombocytopenia - will consult Dr Yeung. D/C ASA for now. 6. Pneumonia - cont IV abx as above. 7. UTI - cont above antibiotic and follow cultures. 8. Pacemaker - extension course counselor is following. 9. Generalized weakness - will order PT and OT once patient improves. 10. Anemia - stable now. 11. Hyperlipidemia - cont home meds. 12. HX of HTN off meds due to septic shock. 13, Dementia - on namenda 5 mg daily. 14. Atrial fib - on cardiazem IV 15. Hyponatremia - change 1/2 NS with kcl 20meq at 50 cc/hr Matthew Pak MD Jul 05, 2020 14:23
--- NOTE | 2020-07-05 14:30 | NUR ---
NURSE NOTES: Dr Pak at bedside assessing pt. Updated him on pt's current condition. New orders received and acknowledged.
[2020-07-05] MEDS: 1/2NS w/KCl 20mEq 1000ml 1,000 ML IV SCH (15:40)
--- NOTE | 2020-07-05 16:15 | NUR ---
NURSE NOTES: Pt turned and repositioned. Pt given a cup of water to drink. No distress noted at this time.
[2020-07-05] MEDS ORDERED: Digoxin 0.5mg/2ml Inj IVP SCH (17:00)
[2020-07-05] MEDS ORDERED: Tubing IV Secondary IV ONE (17:04)
[2020-07-05] MEDS ORDERED: NS 500ML ONE (17:04)
--- NOTE | 2020-07-05 17:49 | Cardiac Electrophysiology PN ---
Assessment/Plan Assessment/Plan 1. Elevated troponin of 0.08 and 0.144. It could be due to demand ischemia in this patient who also has renal failure with creatinine of 2.6. The patient also was admitted with hemoglobin of 6.9. We cannot give the patient aspirin or Plavix in view of platelet count of only 28. Cannot give beta-lopez due to hypotension. 2. Septic shock. The patient is already on IV fluid and IV antibiotic as well as Levophed. 3. S/P [employer] pacemaker on 07/03/2018. We will interrogate it for further evaluation. 4. Atrial fib with RVR. Will taper off Cardizem drip. Load with Dig 0.5 iv and add Dig 0.125 po daily and Amiodarone 400 bid as was in SR yesterday Off antocoagulation as Platelet was in 20s yesterday 5. Dementia. 6. Hyperlipidemia, on Pravachol. 7. Hypothyroidism, on Synthroid. Subjective Subjective Developed atrial fib with RVR and started on Cardizem drip. HR better. Still on Levo 4 Mcg Objective Last 24 Hour Vital Signs Date Time Temp Pulse Resp B/P (MAP) Pulse Ox O2 Delivery O2 Flow Rate FiO2 07/05/20 17:00 90 26 98/47 (64) 92 07/05/20 16:00 98.8 87 28 108/61 (77) 99 07/05/20 16:00 100 07/05/20 16:00 Room Air 07/05/20 15:00 88 27 87/51 (63) 07/05/20 14:00 105 32 100/63 (75) 98 07/05/20 13:00 117 24 103/50 (67) 86 07/05/20 12:00 Room Air 07/05/20 12:00 98.6 96 25 97/60 (72) 100 07/05/20 12:00 100 07/05/20 11:50 102/51 07/05/20 11:00 103 26 99/64 (76) 98 07/05/20 10:00 110 27 93/43 (60) 07/05/20 09:30 116 27 92/57 (69) 07/05/20 09:00 122 26 104/54 (71) 07/05/20 08:45 111 24 97 Room Air 21 07/05/20 08:30 129 27 113/73 (86) 97 07/05/20 08:00 137 07/05/20 08:00 98.8 137 24 117/67 (84) 97 07/05/20 08:00 Room Air 07/05/20 07:30 123 23 102/57 (72) 97 07/05/20 07:00 123 28 115/93 (100) 95 07/05/20 06:30 123 18 118/87 (97) 89 07/05/20 06:00 62 24 124/50 (74) 97 07/05/20 05:00 63 20 121/43 (69) 99 07/05/20 04:00 Room Air 07/05/20 04:00 98.2 62 21 109/50 (69) 100 07/05/20 04:00 62 07/05/20 03:00 61 21 116/41 (66) 100 07/05/20 02:42 102/43 07/05/20 02:00 63 25 104/48 (66) 99 07/05/20 01:00 67 30 120/43 (68) 100 07/05/20 00:00 97.6 67 22 117/52 (73) 98 07/05/20 00:00 Room Air 07/04/20 23:00 60 23 113/40 (64) 99 07/04/20 22:00 63 22 105/45 (65) 98 07/04/20 21:00 61 27 94/44 (61) 94 07/04/20 20:00 61 07/04/20 20:00 97.6 61 25 102/40 (60) 99 07/04/20 20:00 Room Air 07/04/20 19:00 61 24 106/51 (69) 99 07/04/20 18:00 61 23 81/38 (52) 98 Intake and Output 07/04/20 07/05/20 19:00 07:00 Intake Total 1892.50 ml 1985 ml Output Total 300 ml 700 ml Balance 1592.50 ml 1285 ml Intake Oral 250 ml 550 ml IV Total 1642.50 ml 1435 ml Output Urine Total 300 ml 700 ml # Bowel Movements 1 2 Laboratory Tests Test 07/05/20 04:15 07/05/20 04:57 White Blood Count 16.6 K/UL (4.8-10.8) H Red Blood Count 4.53 M/UL (4.20-5.40) Hemoglobin 8.2 G/DL (12.0-16.0) L Hematocrit 27.9 % (37.0-47.0) L Mean Corpuscular Volume 61 FL (80-99) L Mean Corpuscular Hemoglobin 18.1 PG (27.0-31.0) L Mean Corpuscular Hemoglobin Concent 29.4 G/DL (32.0-36.0) L Red Cell Distribution Width 17.7 % (11.6-14.8) H Platelet Count 72 K/UL (150-450) #L Mean Platelet Volume 7.6 FL (6.5-10.1) Neutrophils (%) (Auto) % (45.0-75.0) Lymphocytes (%) (Auto) % (20.0-45.0) Monocytes (%) (Auto) % (1.0-10.0) Eosinophils (%) (Auto) % (0.0-3.0) Basophils (%) (Auto) % (0.0-2.0) Differential Total Cells Counted 100 Neutrophils % (Manual) 80 % (45-75) H Lymphocytes % (Manual) 14 % (20-45) L Monocytes % (Manual) 4 % (1-10) Eosinophils % (Manual) 2 % (0-3) Basophils % (Manual) 0 % (0-2) Band Neutrophils 0 % (0-8) Platelet Estimate Decreased L Platelet Morphology Normal Hypochromasia 1+ Anisocytosis 1+ Microcytosis 1+ Target Cells Tear Drop Cells Occasional Schistocytes Occasional Sodium Level 148 MMOL/L (136-145) H Potassium Level 3.9 MMOL/L (3.5-5.1) Chloride Level 118 MMOL/L (98-107) H Carbon Dioxide Level 19 MMOL/L (21-32) L Anion Gap 11 mmol/L (5-15) Blood Urea Nitrogen 31 mg/dL (7-18) H Creatinine 1.8 MG/DL (0.55-1.30) H Estimat Glomerular Filtration Rate 26.6 mL/min (>60) Glucose Level 88 MG/DL (74-106) Calcium Level 6.7 MG/DL (8.5-10.1) L Troponin I 0.292 ng/mL (0.000-0.056) Digoxin Level 0.6 NG/ML (0.9-2.0) L Microbiology Date/Time Source Procedure Growth Status 07/03/20 17:01 Rectum Ordered 07/03/20 16:14 Urine,Clean Catch Urine Culture - Final Escherichia Coli Proteus Mirabilis Complete 07/03/20 15:35 Blood Blood Culture - Preliminary Gram Negative Jose Antonio Resulted 07/03/20 15:25 Blood Blood Culture - Preliminary Gram Negative Jose Antonio Resulted Objective HEAD AND NECK: Showed no JVD. LUNGS: Clear. CARDIOVASCULAR: Irregular S1 and S2 with no gallop or murmur. Pacer left subclavian ABDOMEN: Soft. EXTREMITIES: No pitting edema. Jorge Abbott MD Jul 05, 2020 17:49
--- NOTE | 2020-07-05 17:54 | NUR ---
NURSE NOTES: Pt fully cleaned and linens changed. Purewick changed. Pt had a large formed green BM. Pt refused Dinner, stating "Im not hungry". She drank a cup of water. Pt given Digoxin 0.5mg IV as ordered by Dr Toluie. Johnson on hold. No distress noted.
--- NOTE | 2020-07-05 18:31 | Infectious Diseases Prog Note ---
Assessment/Plan Problems: (1) Acute pyelonephritis Assessment & Plan: due to E.coli and Proteus Mirabilis , complicated with sepsis and shock due to gram-negative rods, continue meropenem pending blood culture identification and sensitivity (2) Bilateral pneumonia Assessment & Plan: With interstitial infiltrations on chest x-ray, already on meropenem to cover for sepsis due to gram-negative rods, monitor chest x-ray, aspiration precaution. Patient was tested recently for COVID 19 with PCR test couple of days ago and it was negative as per the primary (3) Septic shock Assessment & Plan: due to the above with gram-negative rods source most likely urine infection and pyelonephritis, will continue meropenem empirically , continue pressors for blood pressure support, monitor final blood culture result (4) Acute renal failure Assessment & Plan: Suspect due to dehydration continue fluids, avoid nephrotoxic's, close monitor of renal function, nephrology is following (5) Dehydration Assessment & Plan: Continue IV fluids for hydration and monitor electrolytes (6) Generalized weakness Assessment & Plan: Supportive care, PT OT eval Subjective Constitutional: Reports: fatigue HEENT: Reports: no symptoms Respiratory: Reports: no symptoms Breasts: Reports: no symptoms Cardiovascular: Reports: no symptoms Gastrointestinal/Abdominal: Reports: other - poor oral intake Genitourinary: Reports: no symptoms Neurologic: Reports: weakness Psychiatric: Reports: no symptoms Skin: Reports: no symptoms Endocrine: Reports: no symptoms Hematologic: Reports: no symptoms Musculoskeletal: Reports: no symptoms Allergies: Coded Allergies: No Known Allergies (Unverified , 07/03/20) she was febrile last night and hypotensive and subsequently transferred to ICU for blood pressure support with improvement in her temperature Objective Last 24 Hour Vital Signs Date Time Temp Pulse Resp B/P (MAP) Pulse Ox O2 Delivery O2 Flow Rate FiO2 07/05/20 17:43 74 07/05/20 17:00 90 26 98/47 (64) 92 07/05/20 16:00 98.8 87 28 108/61 (77) 99 07/05/20 16:00 100 07/05/20 16:00 Room Air 07/05/20 15:00 88 27 87/51 (63) 07/05/20 14:00 105 32 100/63 (75) 98 07/05/20 13:00 117 24 103/50 (67) 86 07/05/20 12:00 Room Air 07/05/20 12:00 98.6 96 25 97/60 (72) 100 07/05/20 12:00 100 07/05/20 11:50 102/51 07/05/20 11:00 103 26 99/64 (76) 98 07/05/20 10:00 110 27 93/43 (60) 07/05/20 09:30 116 27 92/57 (69) 07/05/20 09:00 122 26 104/54 (71) 07/05/20 08:45 111 24 97 Room Air 21 07/05/20 08:30 129 27 113/73 (86) 97 07/05/20 08:00 137 07/05/20 08:00 98.8 137 24 117/67 (84) 97 07/05/20 08:00 Room Air 07/05/20 07:30 123 23 102/57 (72) 97 07/05/20 07:00 123 28 115/93 (100) 95 07/05/20 06:30 123 18 118/87 (97) 89 07/05/20 06:00 62 24 124/50 (74) 97 07/05/20 05:00 63 20 121/43 (69) 99 07/05/20 04:00 Room Air 07/05/20 04:00 98.2 62 21 109/50 (69) 100 07/05/20 04:00 62 07/05/20 03:00 61 21 116/41 (66) 100 07/05/20 02:42 102/43 07/05/20 02:00 63 25 104/48 (66) 99 07/05/20 01:00 67 30 120/43 (68) 100 07/05/20 00:00 97.6 67 22 117/52 (73) 98 07/05/20 00:00 Room Air 07/04/20 23:00 60 23 113/40 (64) 99 07/04/20 22:00 63 22 105/45 (65) 98 07/04/20 21:00 61 27 94/44 (61) 94 07/04/20 20:00 61 07/04/20 20:00 97.6 61 25 102/40 (60) 99 07/04/20 20:00 Room Air 07/04/20 19:00 61 24 106/51 (69) 99 Height (Feet): 5 Height (Inches): 1.00 Weight (Pounds): 137 General Appearance: WD/WN, no acute distress HEENT: normocephalic, atraumatic, anicteric, mucous membranes moist, PERRL Respiratory/Chest: chest wall non-tender, lungs clear, normal breath sounds, no respiratory distress, no accessory muscle use Cardiovascular: normal peripheral pulses, normal rate, regular rhythm, no gallop/murmur, no JVD Abdomen: normal bowel sounds, soft, non tender, no organomegaly, non distended, no mass, no scars Genitourinary: normal external genitalia Extremities: no cyanosis, no clubbing Skin: no rash, no lesions, no ulcers Neurologic/Psychiatric: alert, responsive Lymphatic: no neck adenopathy, no groin adenopathy Musculoskeletal: normal muscle bulk, no effusion Microbiology Date/Time Source Procedure Growth Status 07/03/20 17:01 Rectum Ordered 07/03/20 16:14 Urine,Clean Catch Urine Culture - Final Escherichia Coli Proteus Mirabilis Complete 07/03/20 15:35 Blood Blood Culture - Preliminary Gram Negative Jose Antonio Resulted 07/03/20 15:25 Blood Blood Culture - Preliminary Gram Negative Jose Antonio Resulted Laboratory Tests Test 07/05/20 04:15 07/05/20 04:57 White Blood Count 16.6 K/UL (4.8-10.8) H Red Blood Count 4.53 M/UL (4.20-5.40) Hemoglobin 8.2 G/DL (12.0-16.0) L Hematocrit 27.9 % (37.0-47.0) L Mean Corpuscular Volume 61 FL (80-99) L Mean Corpuscular Hemoglobin 18.1 PG (27.0-31.0) L Mean Corpuscular Hemoglobin Concent 29.4 G/DL (32.0-36.0) L Red Cell Distribution Width 17.7 % (11.6-14.8) H Platelet Count 72 K/UL (150-450) #L Mean Platelet Volume 7.6 FL (6.5-10.1) Neutrophils (%) (Auto) % (45.0-75.0) Lymphocytes (%) (Auto) % (20.0-45.0) Monocytes (%) (Auto) % (1.0-10.0) Eosinophils (%) (Auto) % (0.0-3.0) Basophils (%) (Auto) % (0.0-2.0) Differential Total Cells Counted 100 Neutrophils % (Manual) 80 % (45-75) H Lymphocytes % (Manual) 14 % (20-45) L Monocytes % (Manual) 4 % (1-10) Eosinophils % (Manual) 2 % (0-3) Basophils % (Manual) 0 % (0-2) Band Neutrophils 0 % (0-8) Platelet Estimate Decreased L Platelet Morphology Normal Hypochromasia 1+ Anisocytosis 1+ Microcytosis 1+ Target Cells Tear Drop Cells Occasional Schistocytes Occasional Sodium Level 148 MMOL/L (136-145) H Potassium Level 3.9 MMOL/L (3.5-5.1) Chloride Level 118 MMOL/L (98-107) H Carbon Dioxide Level 19 MMOL/L (21-32) L Anion Gap 11 mmol/L (5-15) Blood Urea Nitrogen 31 mg/dL (7-18) H Creatinine 1.8 MG/DL (0.55-1.30) H Estimat Glomerular Filtration Rate 26.6 mL/min (>60) Glucose Level 88 MG/DL (74-106) Calcium Level 6.7 MG/DL (8.5-10.1) L Troponin I 0.292 ng/mL (0.000-0.056) Digoxin Level 0.6 NG/ML (0.9-2.0) L Current Medications Medications (Trade) Dose Ordered Sig/Kallie Route PRN Reason Start Time Stop Time Status Last Admin Dose Admin Acetaminophen (Tylenol) 650 mg Q4H PRN ORAL Temp >100.5 07/03/20 18:30 08/02/20 18:29 07/04/20 11:45 Acetaminophen (Tylenol) 650 mg Q4H PRN ORAL pain 07/03/20 18:45 08/02/20 18:44 Albuterol Sulfate (Proventil MDI) 1 puff Q4H PRN INH Shortness of Breath 07/03/20 18:45 10/01/20 18:44 Amiodarone HCl (Cordarone) 400 mg EVERY 12 HOURS ORAL 07/05/20 21:00 10/03/20 20:59 Chlorhexidine Gluconate (Susan-Hex 2%) 1 applic DAILY@2000 TOPIC 07/04/20 20:00 10/02/20 19:59 07/04/20 19:36 Digoxin (Lanoxin) 0.125 mg DAILY ORAL 07/06/20 09:00 10/04/20 08:59 Diltiazem HCl 125 ml @ 10 mls/hr Q24H IVPB 07/05/20 08:00 07/06/20 07:59 07/05/20 08:20 Duloxetine HCl (Cymbalta) 30 mg DAILY ORAL 07/04/20 09:00 10/02/20 08:59 07/05/20 08:20 Ferrous Sulfate (Feosol) 325 mg DAILY ORAL 07/04/20 09:00 10/02/20 08:59 07/05/20 08:20 Levothyroxine Sodium (Synthroid) 112 mcg DAILY@0630 ORAL 07/04/20 06:30 08/03/20 06:29 07/05/20 06:09 Magnesium Hydroxide (Mom) 30 ml DAILY ORAL 07/04/20 09:00 08/03/20 08:59 07/05/20 08:20 Memantine (Namenda) 5 mg DAILY ORAL 07/04/20 09:00 08/03/20 08:59 07/05/20 08:21 Meropenem 500 mg/ Sodium Chloride 55 ml @ 110 mls/hr Q12HR@0300,1500 IVPB 07/04/20 15:00 07/09/20 14:59 07/05/20 14:10 Midodrine (Pro-Amatine) 10 mg THREE TIMES A DAY ORAL 07/05/20 09:00 10/03/20 08:59 07/05/20 17:43 Mirtazapine (Remeron) 7.5 mg BEDTIME ORAL 07/05/20 21:00 10/01/20 20:59 Multivitamins (Multivitamins) 1 tab DAILY ORAL 07/04/20 09:00 08/03/20 08:59 07/05/20 08:21 Norepinephrine Bitartrate 250 ml @ 0 mls/hr Q24H IV 07/04/20 11:50 07/07/20 11:49 07/05/20 02:42 Pantoprazole (Protonix) 40 mg DAILY ORAL 07/04/20 09:00 08/03/20 08:59 07/05/20 08:21 Pravastatin Sodium (Pravachol) 10 mg BEDTIME ORAL 07/03/20 21:00 08/02/20 20:59 07/04/20 20:37 Sodium 1,000 ml @ 50 mls/hr Q20H IV 07/05/20 15:30 08/04/20 15:29 07/05/20 15:40 Thiamine HCl (Vitamin B1) 100 mg DAILY ORAL 07/04/20 09:00 08/03/20 08:59 07/05/20 08:21 Zolpidem Tartrate (Ambien) 5 mg BEDTIME PRN ORAL Insomnia 07/03/20 18:45 07/10/20 18:44 Isma Schaffer M.D. Jul 05, 2020 18:31
--- NOTE | 2020-07-05 19:17 | NUR ---
NURSE HAND-OFF REPORT: Latest Vital Signs: Temperature 98.8 , Pulse 60 , B/P 143 /53 , Respiratory Rate 24 , O2 SAT 96 , Room Air . Vital Sign Comment: EKG Rhythm: A-Paced Rhythm change?: N MD Notified?: - MD Response: Latest Parada Fall Score: 45 Fall Risk: High Risk Safety Measures: Call light Within Reach, Bed Alarm Zone 1, Side Rails Side Rails x2, Bed position Low and Locked. Fall Precautions: Yellow Socks Door Sign Report given to EMILIE Kolb.
[2020-07-05] MEDS: Dyna-Hex 2% Top Sol 2oz TOPIC SCH (19:31)
--- NOTE | 2020-07-05 19:40 | NUR ---
NURSE NOTES: PATIENT AWOKE, FOLLOWED COMMANDS, DENIED PAIN OR SOB, O2 SATURATION 93% ON ROOM AIR, HR 60'S/MIN A-PACED, PPL TO BOTH FA AND TLC TO RIGHT FEMORAL, INTACT AND PATENT, ONGOING IV FLUID 1/2 NS W/ KCL 20MEQ AT 50ML/HR AND LEVOPHED 4MCG/MIN VIA TLC, KEPT HOB 30 DEGREES AND ASPIRATION PRECAUTION, PROVIDED CALL LIGHT WITHIN REACH, ON BED ALARM AND LOCKED, MADE LOWER BED POSITION, WILL CONTINUE TO MONITOR.
[2020-07-05] MEDS: Amiodarone 200mg tab ORAL SCH (20:51)
--- NOTE | 2020-07-05 22:10 | NUR ---
NURSE NOTES: LE;PATIENT DENIED CHEST DISCOMFORT OR SOB AT THIS TIME.
[2020-07-06] VITALS (31 sets, daily range): BP systolic 87–143; BP diastolic 29–69
--- NOTE | 2020-07-06 00:40 | NUR ---
NURSE NOTES: VSS, PATIENT DRUNK WATER WITHOUT COUGH OR ASPIRATION SIGN, KEPT HOB 30 DEGREES, WILL CONTINUE TO MONITOR.
--- NOTE | 2020-07-06 02:10 | NUR ---
NURSE NOTES: PATIENT ASLEEP STATUS, NO DISTRESS NOTED AT THIS TIME.
[2020-07-06] MEDS: Meropenem 500mg/NS 55ml IVPB SCH ×2 (03:12)
--- NOTE | 2020-07-06 03:56 | NUR ---
NURSE NOTES: MORNING CARE AND ORAL CARE WAS DONE, PATIENT ALERT, FOLLOWED COMMANDS WHILE MORNING CARE.
--- NOTE | 2020-07-06 06:20 | NUR ---
NURSE NOTES: VSS WITH LEVOPHED 2MCG/MIN , NO ACUTE DISTRESS NOTED AT THIS SHIFT.
[2020-07-06 06:32] LABS: HEMATOCRIT 27.5 % (37.0-47.0); HEMOGLOBIN 7.8 G/DL (12.0-16.0); MEAN CORPUSCULAR VOLUME 62 FL (80-99); PLATELET COUNT 85 K/UL (150-450); RED BLOOD COUNT 4.44 M/UL (4.20-5.40); WHITE BLOOD COUNT 12.3 K/UL (4.8-10.8)
[2020-07-06 07:00] LABS: CALCIUM 6.8 MG/DL (8.5-10.1); CREATININE 1.2 MG/DL (0.55-1.30)
--- NOTE | 2020-07-06 07:12 | NUR ---
NURSE HAND-OFF REPORT: Latest Vital Signs: Temperature 97.8 , Pulse 61 , B/P 125 /46 , Respiratory Rate 24 , O2 SAT 97 , Room Air, O2 Flow Rate . Vital Sign Comment: EKG Rhythm: A-Paced Rhythm change?: N MD Notified?: - MD Response: Latest Parada Fall Score: 45 Fall Risk: High Risk Safety Measures: Call light Within Reach, Bed Alarm Zone 1, Side Rails Side Rails x2, Bed position Low and Locked. Fall Precautions: Yellow Socks Door Sign Report given to EMILIE ROBLES.
--- NOTE | 2020-07-06 07:13 | NUR ---
NURSE NOTES: Report received from EMILIE Kolb. Patient is observed laying in bed, opening eyes spontaneously and following simple commands. Patient has a Left upper chest Pacemaker ([employer] dual chamber MRI compatible: [id number]). A-paced on the ict programmer. Patient has a pure wick in place draining urine. Skin warm and dry. Right femoral TLC intact running Levophed @ 2mcg/min and 1/2 NS with 20 meq KCL infusing at 50 ml/hr. Bed locked and in lowest position, with call light within reach. Will continue plan of care.
--- NOTE | 2020-07-06 07:19 | NUR ---
CASE MANAGEMENT:REVIEW 89 YR OLD FEMALE BIBA FROM [facility] CC: WEAKNESS AND LOW BLOOD PRESSURE SI: SEPTIC SHOCK. UTI. PUI 98.0 60 16 88/48 99% ON RA WBC+14.2 H/H-6.9/24.4 BUN+32 CR+2.4 TROPONIN(+) 0.084 IS: 1.8L NS BOLUS IV VANCOMYCIN ASA PO CXR BLOOD CX : TO ICU
--- NOTE | 2020-07-06 07:28 | NUR ---
CASE MANAGEMENT:REVIEW 07/06/20 SI: SEPSIS. PNA. UTI. AFIB 97.8 61 25 125/46 97% ON RA NA+147 GLUCOSE+125 CA-6.8 TROPONIN(+) 0.292 IS: CARDIZEM GTT LEVOPHED GTT IVF@50/HR IV MEROPENEM Q12 DIGOXIN QD AMIODARONE PO Q12 : ICU STATUS DCP: [facility]
[2020-07-06] MEDS: Milk of Magnesia 30ml Ud ORAL SCH (09:19)
[2020-07-06] MEDS: Thiamine 100mg tab ORAL SCH (09:20)
[2020-07-06] MEDS: Midodrine 10mg tab ORAL SCH ×3 (09:20→21:34)
[2020-07-06] MEDS: Amiodarone 200mg tab ORAL SCH ×2 (09:20→20:43)
[2020-07-06] MEDS: Digoxin 0.125mg tab ORAL SCH (09:20)
[2020-07-06] MEDS: Memantine 10mg tab ORAL SCH (09:20)
[2020-07-06] MEDS: DULoxetine 30mg cap ORAL SCH (09:20)
[2020-07-06] MEDS: 1/2NS w/KCl 20mEq 1000ml 1,000 ML IV SCH (11:26)
--- NOTE | 2020-07-06 12:21 | Cardiac Electrophysiology PN ---
Assessment/Plan Assessment/Plan 1. Elevated troponin of 0.08 and 0.144. It could be due to demand ischemia in this patient who also has renal failure with creatinine of 2.6. The patient also was admitted with hemoglobin of 6.9. We cannot give the patient aspirin or Plavix in view of platelet count of only 28. Cannot give beta-lopez due to hypotension. 2. Septic shock. The patient is already on IV fluid and IV antibiotic as well as Levophed. 3. S/P [employer] pacemaker on 07/03/2018. We will interrogate it for further evaluation. 4. Atrial fib with RVR. Now off Cardizem drip. Loaded with Dig 0.5 iv and is on Dig 0.125 po daily and Amiodarone 400 bid Off antocoagulation as Platelet was in 20s Dig level 0.6 5. Dementia. 6. Hyperlipidemia, on Pravachol. 7. Hypothyroidism, on Synthroid. Subjective Subjective No more atrial fib with RVR. HR better. Still on Levo 2 Mcg Objective Last 24 Hour Vital Signs Date Time Temp Pulse Resp B/P (MAP) Pulse Ox O2 Delivery O2 Flow Rate FiO2 07/06/20 09:20 61 07/06/20 09:00 61 21 127/44 (71) 98 07/06/20 08:30 60 21 115/43 (67) 98 07/06/20 08:01 61 07/06/20 08:00 98.0 60 21 120/47 (71) 98 07/06/20 08:00 Room Air 07/06/20 07:00 60 22 126/50 (75) 98 07/06/20 06:00 61 24 125/46 (72) 97 07/06/20 05:00 61 24 125/42 (69) 97 07/06/20 04:00 61 07/06/20 04:00 Room Air 07/06/20 04:00 97.8 61 25 140/52 (81) 97 07/06/20 03:30 61 24 97/56 (70) 98 07/06/20 03:00 60 25 143/54 (83) 98 07/06/20 02:30 60 24 137/63 (87) 97 07/06/20 02:00 61 25 142/50 (80) 98 07/06/20 01:00 60 25 142/57 (85) 98 07/06/20 00:00 61 07/06/20 00:00 98.3 61 27 143/50 (81) 98 07/06/20 00:00 Room Air 07/05/20 23:00 62 26 131/52 (78) 98 07/05/20 22:00 60 27 117/40 (65) 95 07/05/20 21:00 61 22 141/48 (79) 93 07/05/20 20:30 60 26 134/44 (74) 98 07/05/20 20:00 98.4 60 25 139/55 (83) 96 07/05/20 20:00 Room Air 07/05/20 20:00 60 07/05/20 20:00 61 18 97 Room Air 21 07/05/20 19:00 60 24 143/53 (83) 96 07/05/20 18:30 133/46 07/05/20 18:00 62 25 133/46 (75) 99 07/05/20 17:43 74 07/05/20 17:00 90 26 98/47 (64) 92 07/05/20 16:00 98.8 87 28 108/61 (77) 99 07/05/20 16:00 100 07/05/20 16:00 Room Air 07/05/20 15:00 88 27 87/51 (63) 07/05/20 14:00 105 32 100/63 (75) 98 07/05/20 13:00 117 24 103/50 (67) 86 Intake and Output 07/05/20 07/06/20 19:00 07:00 Intake Total 1960.82 ml 1002.5 ml Output Total 400 ml 600 ml Balance 1560.82 ml 402.5 ml Intake Oral 680 ml 320 ml IV Total 1280.82 ml 682.5 ml Output Urine Total 400 ml 600 ml # Bowel Movements 2 Laboratory Tests Test 07/06/20 00:23 07/06/20 05:14 POC Whole Blood Glucose 125 MG/DL (74-106) H White Blood Count 12.3 K/UL (4.8-10.8) H Red Blood Count 4.44 M/UL (4.20-5.40) Hemoglobin 7.8 G/DL (12.0-16.0) L Hematocrit 27.5 % (37.0-47.0) L Mean Corpuscular Volume 62 FL (80-99) L Mean Corpuscular Hemoglobin 17.6 PG (27.0-31.0) L Mean Corpuscular Hemoglobin Concent 28.4 G/DL (32.0-36.0) L Red Cell Distribution Width 18.0 % (11.6-14.8) H Platelet Count 85 K/UL (150-450) L Mean Platelet Volume 6.7 FL (6.5-10.1) Neutrophils (%) (Auto) % (45.0-75.0) Lymphocytes (%) (Auto) % (20.0-45.0) Monocytes (%) (Auto) % (1.0-10.0) Eosinophils (%) (Auto) % (0.0-3.0) Basophils (%) (Auto) % (0.0-2.0) Sodium Level 147 MMOL/L (136-145) H Potassium Level 4.0 MMOL/L (3.5-5.1) Chloride Level 118 MMOL/L (98-107) H Carbon Dioxide Level 19 MMOL/L (21-32) L Anion Gap 10 mmol/L (5-15) Blood Urea Nitrogen 17 mg/dL (7-18) Creatinine 1.2 MG/DL (0.55-1.30) Estimat Glomerular Filtration Rate 42.5 mL/min (>60) Glucose Level 85 MG/DL (74-106) Calcium Level 6.8 MG/DL (8.5-10.1) L Microbiology Date/Time Source Procedure Growth Status 07/03/20 16:14 Urine,Clean Catch Urine Culture - Final Escherichia Coli Proteus Mirabilis Complete 07/03/20 15:35 Blood Blood Culture - Preliminary Gram Negative Jose Antonio Resulted 07/03/20 15:25 Blood Blood Culture - Preliminary Gram Negative Jose Antonio Resulted Objective HEAD AND NECK: Showed no JVD. LUNGS: Clear. CARDIOVASCULAR: Irregular S1 and S2 with no gallop or murmur. Pacer left subclavian ABDOMEN: Soft. EXTREMITIES: No pitting edema. Jorge Abbott MD Jul 06, 2020 12:21
[2020-07-06] MEDS: Meropenem 1gm/NS 55ml IVPB SCH ×2 (15:10)
--- NOTE | 2020-07-06 15:37 | Infectious Diseases Prog Note ---
Assessment/Plan Problems: (1) Acute pyelonephritis Assessment & Plan: due to E.coli and Proteus Mirabilis , complicated with sepsis and shock due to gram-negative rods, continue meropenem pending blood culture identification and sensitivity (2) Bilateral pneumonia Assessment & Plan: With interstitial infiltrations on chest x-ray, already on meropenem to cover for sepsis due to gram-negative rods, monitor chest x-ray, aspiration precaution. Patient was tested recently for COVID 19 with PCR test couple of days ago and it was negative as per the primary (3) Septic shock Assessment & Plan: due to the above with gram-negative rods source most likely urine infection and pyelonephritis, will continue meropenem empirically , continue pressors for blood pressure support, monitor final blood culture result (4) Acute renal failure Assessment & Plan: Suspect due to dehydration continue fluids, avoid nephrotoxic's, close monitor of renal function, nephrology is following (5) Dehydration Assessment & Plan: Continue IV fluids for hydration and monitor electrolytes (6) Generalized weakness Assessment & Plan: Supportive care, PT OT eval Subjective Constitutional: Reports: no symptoms HEENT: Reports: no symptoms Respiratory: Reports: no symptoms Breasts: Reports: no symptoms Cardiovascular: Reports: no symptoms Gastrointestinal/Abdominal: Reports: no symptoms Genitourinary: Reports: no symptoms Neurologic: Reports: no symptoms Psychiatric: Reports: no symptoms Skin: Reports: no symptoms Endocrine: Reports: no symptoms Hematologic: Reports: no symptoms Musculoskeletal: Reports: no symptoms Allergies: Coded Allergies: No Known Allergies (Unverified , 07/03/20) she was febrile last night and hypotensive and subsequently transferred to ICU for blood pressure support with improvement in her temperature Objective Last 24 Hour Vital Signs Date Time Temp Pulse Resp B/P (MAP) Pulse Ox O2 Delivery O2 Flow Rate FiO2 07/06/20 15:00 62 23 119/45 (69) 98 07/06/20 14:00 62 22 116/42 (66) 98 07/06/20 13:00 60 22 125/47 (73) 98 07/06/20 12:00 98.6 60 22 118/46 (70) 100 07/06/20 12:00 Room Air 07/06/20 12:00 60 07/06/20 11:00 60 22 113/50 (71) 98 07/06/20 10:00 61 20 119/43 (68) 98 2/8/21 09:45 61 21 129/60 (83) 98 07/06/20 09:30 61 21 117/54 (75) 100 07/06/20 09:20 61 07/06/20 09:15 61 21 125/41 (69) 98 07/06/20 09:00 61 21 127/44 (71) 98 07/06/20 08:30 60 21 115/43 (67) 98 07/06/20 08:01 61 07/06/20 08:00 98.0 60 21 120/47 (71) 98 07/06/20 08:00 Room Air 07/06/20 07:00 60 22 126/50 (75) 98 07/06/20 06:00 61 24 125/46 (72) 97 07/06/20 05:00 61 24 125/42 (69) 97 07/06/20 04:00 61 07/06/20 04:00 Room Air 07/06/20 04:00 97.8 61 25 140/52 (81) 97 07/06/20 03:30 61 24 97/56 (70) 98 07/06/20 03:00 60 25 143/54 (83) 98 07/06/20 02:30 60 24 137/63 (87) 97 07/06/20 02:00 61 25 142/50 (80) 98 07/06/20 01:00 60 25 142/57 (85) 98 07/06/20 00:00 61 07/06/20 00:00 98.3 61 27 143/50 (81) 98 07/06/20 00:00 Room Air 07/05/20 23:00 62 26 131/52 (78) 98 07/05/20 22:00 60 27 117/40 (65) 95 07/05/20 21:00 61 22 141/48 (79) 93 07/05/20 20:30 60 26 134/44 (74) 98 07/05/20 20:00 98.4 60 25 139/55 (83) 96 07/05/20 20:00 Room Air 07/05/20 20:00 60 07/05/20 20:00 61 18 97 Room Air 21 07/05/20 19:00 60 24 143/53 (83) 96 07/05/20 18:30 133/46 07/05/20 18:00 62 25 133/46 (75) 99 07/05/20 17:43 74 07/05/20 17:00 90 26 98/47 (64) 92 07/05/20 16:00 98.8 87 28 108/61 (77) 99 07/05/20 16:00 100 07/05/20 16:00 Room Air Height (Feet): 5 Height (Inches): 1.00 Weight (Pounds): 137 General Appearance: WD/WN, no acute distress HEENT: normocephalic, atraumatic, anicteric, mucous membranes moist, PERRL Respiratory/Chest: chest wall non-tender, lungs clear, normal breath sounds, no respiratory distress, no accessory muscle use Cardiovascular: normal peripheral pulses, normal rate, regular rhythm, no gallop/murmur, no JVD Abdomen: normal bowel sounds, soft, non tender, no organomegaly, non distended, no mass Genitourinary: normal external genitalia Extremities: no cyanosis, no clubbing Skin: no rash, no lesions 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, alert, responsive, normal mood/affect Lymphatic: no neck adenopathy, no groin adenopathy Musculoskeletal: normal muscle bulk, no effusion Microbiology Date/Time Source Procedure Growth Status 07/03/20 16:14 Urine,Clean Catch Urine Culture - Final Escherichia Coli Proteus Mirabilis Complete Laboratory Tests Test 07/06/20 00:23 07/06/20 05:14 POC Whole Blood Glucose 125 MG/DL (74-106) H White Blood Count 12.3 K/UL (4.8-10.8) H Red Blood Count 4.44 M/UL (4.20-5.40) Hemoglobin 7.8 G/DL (12.0-16.0) L Hematocrit 27.5 % (37.0-47.0) L Mean Corpuscular Volume 62 FL (80-99) L Mean Corpuscular Hemoglobin 17.6 PG (27.0-31.0) L Mean Corpuscular Hemoglobin Concent 28.4 G/DL (32.0-36.0) L Red Cell Distribution Width 18.0 % (11.6-14.8) H Platelet Count 85 K/UL (150-450) L Mean Platelet Volume 6.7 FL (6.5-10.1) Neutrophils (%) (Auto) % (45.0-75.0) Lymphocytes (%) (Auto) % (20.0-45.0) Monocytes (%) (Auto) % (1.0-10.0) Eosinophils (%) (Auto) % (0.0-3.0) Basophils (%) (Auto) % (0.0-2.0) Sodium Level 147 MMOL/L (136-145) H Potassium Level 4.0 MMOL/L (3.5-5.1) Chloride Level 118 MMOL/L (98-107) H Carbon Dioxide Level 19 MMOL/L (21-32) L Anion Gap 10 mmol/L (5-15) Blood Urea Nitrogen 17 mg/dL (7-18) Creatinine 1.2 MG/DL (0.55-1.30) Estimat Glomerular Filtration Rate 42.5 mL/min (>60) Glucose Level 85 MG/DL (74-106) Calcium Level 6.8 MG/DL (8.5-10.1) L Current Medications Medications (Trade) Dose Ordered Sig/Kallie Route PRN Reason Start Time Stop Time Status Last Admin Dose Admin Acetaminophen (Tylenol) 650 mg Q4H PRN ORAL Temp >100.5 07/03/20 18:30 08/02/20 18:29 07/04/20 11:45 Acetaminophen (Tylenol) 650 mg Q4H PRN ORAL pain 07/03/20 18:45 08/02/20 18:44 Albuterol Sulfate (Proventil MDI) 1 puff Q4H PRN INH Shortness of Breath 07/03/20 18:45 10/01/20 18:44 Amiodarone HCl (Cordarone) 400 mg EVERY 12 HOURS ORAL 07/05/20 21:00 10/03/20 20:59 07/06/20 09:20 Chlorhexidine Gluconate (Susan-Hex 2%) 1 applic DAILY@1999 TOPIC 07/04/20 20:00 10/02/20 19:59 07/05/20 19:31 Digoxin (Lanoxin) 0.125 mg DAILY ORAL 07/06/20 09:00 10/04/20 08:59 07/06/20 09:20 Duloxetine HCl (Cymbalta) 30 mg DAILY ORAL 07/04/20 09:00 10/02/20 08:59 07/06/20 09:20 Ferrous Sulfate (Feosol) 325 mg DAILY ORAL 07/04/20 09:00 10/02/20 08:59 07/06/20 09:20 Levothyroxine Sodium (Synthroid) 112 mcg DAILY@0630 ORAL 07/04/20 06:30 08/03/20 06:29 07/06/20 06:01 Magnesium Hydroxide (Mom) 30 ml DAILY ORAL 07/04/20 09:00 08/03/20 08:59 07/06/20 09:19 Memantine (Namenda) 5 mg DAILY ORAL 07/04/20 09:00 08/03/20 08:59 07/06/20 09:20 Meropenem 1 gm/ Sodium Chloride 55 ml @ 110 mls/hr Q12HR@0300,1500 IVPB 07/06/20 15:00 07/11/20 14:59 07/06/20 15:10 Midodrine (Pro-Amatine) 10 mg THREE TIMES A DAY ORAL 07/05/20 09:00 10/03/20 08:59 07/06/20 13:34 Mirtazapine (Remeron) 7.5 mg BEDTIME ORAL 07/05/20 21:00 10/01/20 20:59 07/05/20 20:51 Multivitamins (Multivitamins) 1 tab DAILY ORAL 07/04/20 09:00 08/03/20 08:59 07/06/20 09:20 Norepinephrine Bitartrate 250 ml @ 0 mls/hr Q24H IV 07/04/20 11:50 07/07/20 11:49 07/05/20 18:30 Pantoprazole (Protonix) 40 mg DAILY ORAL 07/04/20 09:00 08/03/20 08:59 07/06/20 09:20 Pravastatin Sodium (Pravachol) 10 mg BEDTIME ORAL 07/03/20 21:00 08/02/20 20:59 07/05/20 20:52 Sodium 1,000 ml @ 50 mls/hr Q20H IV 07/05/20 15:30 08/04/20 15:29 07/06/20 11:26 Thiamine HCl (Vitamin B1) 100 mg DAILY ORAL 07/04/20 09:00 3/8/21 08:59 07/06/20 09:20 Zolpidem Tartrate (Ambien) 5 mg BEDTIME PRN ORAL Insomnia 07/03/20 18:45 07/10/20 18:44 Isma Schaffer M.D. Jul 06, 2020 15:37
--- NOTE | 2020-07-06 16:14 | General Progress Note ---
Subjective Date patient seen: Jul 06, 2020 Time patient seen: 16:00 Constitutional: Reports: weakness HEENT: Reports: no symptoms Cardiovascular: Reports: no symptoms Respiratory: Reports: no symptoms Gastrointestinal/Abdominal: Reports: no symptoms Genitourinary: Reports: no symptoms Neurologic/Psychiatric: Reports: weakness Hematologic/Lymphatic: Reports: anemia Allergies: Coded Allergies: No Known Allergies (Unverified , 07/03/20) Subjective Afebrile. no sob or chest pain. no nausea or vomiting. she is better and she is off pressor. Objective Last 24 Hour Vital Signs Date Time Temp Pulse Resp B/P (MAP) Pulse Ox O2 Delivery O2 Flow Rate FiO2 07/06/20 16:00 Room Air 07/06/20 16:00 60 23 126/40 (68) 99 07/06/20 15:00 62 23 119/45 (69) 98 07/06/20 14:00 62 22 116/42 (66) 98 07/06/20 13:00 60 22 125/47 (73) 98 07/06/20 12:00 98.6 60 22 118/46 (70) 100 07/06/20 12:00 Room Air 07/06/20 12:00 60 07/06/20 11:00 60 22 113/50 (71) 98 07/06/20 10:00 61 20 119/43 (68) 98 07/06/20 09:45 61 21 129/60 (83) 98 07/06/20 09:30 61 21 117/54 (75) 100 07/06/20 09:20 61 07/06/20 09:15 61 21 125/41 (69) 98 07/06/20 09:00 61 21 127/44 (71) 98 07/06/20 08:30 60 21 115/43 (67) 98 07/06/20 08:01 61 07/06/20 08:00 98.0 60 21 120/47 (71) 98 07/06/20 08:00 Room Air 07/06/20 07:00 60 22 126/50 (75) 98 07/06/20 06:00 61 24 125/46 (72) 97 07/06/20 05:00 61 24 125/42 (69) 97 07/06/20 04:00 61 07/06/20 04:00 Room Air 07/06/20 04:00 97.8 61 25 140/52 (81) 97 07/06/20 03:30 61 24 97/56 (70) 98 07/06/20 03:00 60 25 143/54 (83) 98 07/06/20 02:30 60 24 137/63 (87) 97 07/06/20 02:00 61 25 142/50 (80) 98 07/06/20 01:00 60 25 142/57 (85) 98 07/06/20 00:00 61 07/06/20 00:00 98.3 61 27 143/50 (81) 98 07/06/20 00:00 Room Air 07/05/20 23:00 62 26 131/52 (78) 98 07/05/20 22:00 60 27 117/40 (65) 95 07/05/20 21:00 61 22 141/48 (79) 93 07/05/20 20:30 60 26 134/44 (74) 98 07/05/20 20:00 98.4 60 25 139/55 (83) 96 07/05/20 20:00 Room Air 07/05/20 20:00 60 07/05/20 20:00 61 18 97 Room Air 21 07/05/20 19:00 60 24 143/53 (83) 96 07/05/20 18:30 133/46 07/05/20 18:00 62 25 133/46 (75) 99 07/05/20 17:43 74 07/05/20 17:00 90 26 98/47 (64) 92 Intake and Output 07/05/20 07/06/20 19:00 07:00 Intake Total 1960.82 ml 1002.5 ml Output Total 400 ml 600 ml Balance 1560.82 ml 402.5 ml Intake Oral 680 ml 320 ml IV Total 1280.82 ml 682.5 ml Output Urine Total 400 ml 600 ml # Bowel Movements 2 Laboratory Tests 07/06/20 00:23: POC Whole Blood Glucose 125H 07/06/20 05:14: White Blood Count 12.3H, Red Blood Count 4.44, Hemoglobin 7.8L, Hematocrit 27.5L , Mean Corpuscular Volume 62L, Mean Corpuscular Hemoglobin 17.6L, Mean Corpuscul ar Hemoglobin Concent 28.4L, Red Cell Distribution Width 18.0H, Platelet Count 85L, Mean Platelet Volume 6.7, Neutrophils (%) (Auto) , Lymphocytes (%) (Auto) , Monocytes (%) (Auto) , Eosinophils (%) (Auto) , Basophils (%) (Auto) , Sodium Level 147H, Potassium Level 4.0, Chloride Level 118H, Carbon Dioxide Level 19L, Anion Gap 10, Blood Urea Nitrogen 17, Creatinine 1.2, Estimat Glomerular Filtra tion Rate 42.5, Glucose Level 85, Calcium Level 6.8L Height (Feet): 5 Height (Inches): 1.00 Weight (Pounds): 137 General Appearance: no apparent distress, alert EENT: normal ENT inspection Neck: non-tender, supple Cardiovascular: normal rate, regular rhythm Respiratory/Chest: lungs clear, normal breath sounds Abdomen: normal bowel sounds, non tender, soft Extremities: non-tender Edema: no edema noted Leg (L), no edema noted Leg (R) Neurologic: alert, responsive Skin: warm/dry Assessment/Plan Status: stable Assessment/Plan: 1. Septic shock - doing better. In ICU and off pressor. will downgrade tomorrow. 2. Sepsis - cont IV abx. ID is following. 3. ARF - resolving. cont IVF and IV antibiotic. 4. Elevated Troponin most likely due to sepsis and ARF 5. Thrombocytopenia - will consult Dr Yeung. 6. Pneumonia - cont IV abx as above. 7. UTI - cont above antibiotic and follow cultures. 8. Pacemaker - machine rug cleaner is following. 9. Generalized weakness - will order PT and OT once patient improves. 10. Anemia - stable now. 11. Hyperlipidemia - cont home meds. 12. HX of HTN off meds due to septic shock. 13, Dementia - on namenda 5 mg daily. 14. Atrial fib - off Cardizem and on Amiodarone per machine rug cleaner. 15. Hypernatremia - improved. cont 1/2 NS with kcl 20meq at 50 cc/hr Matthew Pak MD Jul 06, 2020 16:14
--- NOTE | 2020-07-06 16:30 | NUR ---
NURSE NOTES: Dr. Mora at bedside. Informed that patient have poor PO intake. 25% intake for breakfast and lunch meal.
--- NOTE | 2020-07-06 16:45 | NUR ---
NURSE NOTES: Dr. Schaffer at bedside.
[2020-07-06] MEDS ORDERED: SYNTHROID112 MCG ORAL (16:48)
--- NOTE | 2020-07-06 16:48 | NUR ---
NURSE NOTES: Jerome patient with wheezes, Dr. Pak ordered to discontinue IVF. Will continue to monitor patient.
[2020-07-06] MEDS ORDERED: ARTIFICIAL TEAR15 ML BOTH EYES (16:58)
[2020-07-06] MEDS ORDERED: ASPIRIN EC81 MG ORAL (16:58)
[2020-07-06] MEDS ORDERED: LIDODERM700 M1 TOPIC (16:58)
[2020-07-06] MEDS ORDERED: IPRAT-ALBUT 0.5-3 ML IH (16:58)
[2020-07-06] MEDS ORDERED: DEEP SEA44 ML NS (16:58)
[2020-07-06] MEDS ORDERED: GUAIFENESI100 MG/5 M ORAL (16:58)
[2020-07-06] MEDS ORDERED: CRANBERRY450 M5 PO (16:58)
[2020-07-06] MEDS ORDERED: MULTIVITAMINS1 EAC8 ORAL (16:58)
[2020-07-06] MEDS ORDERED: DIGOXIN125 MCG ORAL (16:58)
--- NOTE | 2020-07-06 19:14 | NUR ---
NURSE HAND-OFF REPORT: Latest Vital Signs: Temperature 98.9 , Pulse 68 , B/P 131 /42 , Respiratory Rate 23 , O2 SAT 98 , Room Air, O2 Flow Rate . Vital Sign Comment: EKG Rhythm: A-Paced Rhythm change?: N Latest Parada Fall Score: 45 Fall Risk: High Risk Safety Measures: Call light Within Reach, Bed Alarm Zone 1, Side Rails Side Rails x2, Bed position Low and Locked. Fall Precautions: Yellow Socks Door Sign Report given to Cortes Canseco RN.
--- NOTE | 2020-07-06 19:40 | NUR ---
NURSE NOTES: PATIENT AWOKE, CONFUSED TO SITUATION, DID NOT FOLLOWED COMMANDS STATUS, DENIED PAIN OR SOB, O2 SATURATION 96% ON ROOM AIR, HR 60'S/MIN A-PACED, PPL TO BOTH FA AND TLC TO RIGHT FEMORAL, INTACT AND PATENT, KEPT HOB 30 DEGREES AND ASPIRATION PRECAUTION, PROVIDED CALL LIGHT WITHIN REACH, ON BED ALARM AND LOCKED, MADE LOWER BED POSITION, WILL CONTINUE TO MONITOR.
[2020-07-06] MEDS: Dyna-Hex 2% Top Sol 2oz TOPIC SCH (19:59)
--- NOTE | 2020-07-06 21:40 | NUR ---
NURSE NOTES: PATIENT AWOKE, DENIED PAIN OR SOB, WILL CONTINUE TO MONITOR.
--- NOTE | 2020-07-06 23:40 | NUR ---
NURSE NOTES: PATIENT ASLEEP STATUS, NO DISTRESS NOTED AT THIS TIME.
[2020-07-07] VITALS (19 sets, daily range): BP systolic 119–160; BP diastolic 36–112
--- NOTE | 2020-07-07 02:10 | NUR ---
NURSE NOTES: NO PAIN OR SOB NOTED, KEPT FALL AND ASPIRATION PRECAUTION, WILL CONTINUE PLAN OF CARE.
[2020-07-07] MEDS: Meropenem 1gm/NS 55ml IVPB SCH ×6 (02:50→23:28)
--- NOTE | 2020-07-07 04:10 | NUR ---
NURSE NOTES: PATIENT AWOKE, CONFUSED TO PLACE, GIVEN ORIENTATION, FOLLOWED COMMANDS STATUS.
[2020-07-07 05:30] LABS: HEMATOCRIT 26.5 % (37.0-47.0); HEMOGLOBIN 7.8 G/DL (12.0-16.0); MEAN CORPUSCULAR VOLUME 62 FL (80-99); PLATELET COUNT 111 K/UL (150-450); RED BLOOD COUNT 4.29 M/UL (4.20-5.40); RED CELL DISTRIBUTION WIDTH 17.9 % (11.6-14.8); WHITE BLOOD COUNT 8.4 K/UL (4.8-10.8)
[2020-07-07 05:45] LABS: CALCIUM 7.2 MG/DL (8.5-10.1); POTASSIUM 4.3 MMOL/L (3.5-5.1)
[2020-07-07] MEDS: Midodrine 10mg tab ORAL SCH ×3 (05:47→21:49)
--- NOTE | 2020-07-07 05:50 | NUR ---
NURSE NOTES: MORNING CARE WAS DONE, HEARD WHEEZE SOUND, O2 SATURATION 995 ON ROOM AIR, PATIENT DENIED SOB, WILL CONTINUE TO MONITOR.
--- NOTE | 2020-07-07 07:16 | NUR ---
NURSE HAND-OFF REPORT: Latest Vital Signs: Temperature 97.8 , Pulse 60 , B/P 145 /59 , Respiratory Rate 20 , O2 SAT 99 , Room Air, O2 Flow Rate . Vital Sign Comment: EKG Rhythm: A-Paced Rhythm change?: N MD Notified?: - MD Response: Latest Parada Fall Score: 45 Fall Risk: High Risk Safety Measures: Call light Within Reach, Bed Alarm Zone 1, Side Rails Side Rails x2, Bed position Low and Locked. Fall Precautions: Yellow Socks Door Sign Report given to EMILIE CONWAY.
--- NOTE | 2020-07-07 08:53 | NUR ---
RD ASSESSMENT & RECOMMENDATIONS SEE CARE ACTIVITY FOR COMPLETE ASSESSMENT DAILY ESTIMATED NEEDS: Needs based on Sepsis 50kg abw 25-35 kcals/kg 9929-0809 total kcals 1-2 g protein/kg 50-100 g total protein 25-30ml/kcal mL/kg 5585-9278 total fluid mLs NUTRITION DIAGNOSIS: Altered nutrition related lab values rt/ clinical status as evidenced by low BG(70), elevated Na/BUN/Creat, now wnl, elevated BNP(75296), hypotensive on pressors, now held. CURRENT DIET: Soft diet/ kosher, ms ground PO DIET RECOMMENDATIONS: Liberalized Regular diet/ kosher/ texture per METAL FINISHER ENTERAL NUTRITION RECOMMENDATIONS: * CONSULT RD IF UNABLE TO TOLERATE ORAL DIET * ADDITIONAL RECOMMENDATIONS: 1) maintain calibrated bed scale wt 2) METAL FINISHER eval for appropriate texture --->>> temp non oral feeds w/ poor po intake if part of POC 3) Add D5 with poor po, monitor for hypoglycemia (BG 70 today 07/07) 4) Add Ensure TID w/ meals
--- NOTE | 2020-07-07 08:58 | General Progress Note ---
Subjective Date patient seen: Jul 07, 2020 Time patient seen: 08:40 Constitutional: Reports: weakness HEENT: Reports: no symptoms Cardiovascular: Reports: no symptoms Respiratory: Reports: no symptoms Gastrointestinal/Abdominal: Reports: no symptoms Genitourinary: Reports: no symptoms Neurologic/Psychiatric: Reports: weakness Endocrine: Reports: no symptoms Allergies: Coded Allergies: No Known Allergies (Unverified , 07/03/20) Subjective Afebrile. no sob or chest pain. no nausea or vomiting. she is better and her wbc improved. Objective Last 24 Hour Vital Signs Date Time Temp Pulse Resp B/P (MAP) Pulse Ox O2 Delivery O2 Flow Rate FiO2 07/07/20 07:00 60 17 126/49 (74) 98 07/07/20 06:00 60 20 145/59 (87) 99 07/07/20 05:00 60 20 133/52 (79) 98 07/07/20 04:00 60 07/07/20 04:00 97.8 60 20 119/42 (67) 99 07/07/20 04:00 Room Air 07/07/20 03:00 61 21 142/52 (82) 99 07/07/20 02:00 60 19 134/48 (76) 98 07/07/20 01:00 60 23 135/44 (74) 99 07/07/20 00:00 98.0 60 18 135/52 (79) 98 07/07/20 00:00 60 07/07/20 00:00 Room Air 07/06/20 23:00 60 22 137/42 (73) 97 07/06/20 22:30 61 22 135/50 (78) 99 07/06/20 22:00 61 22 87/69 (75) 99 07/06/20 21:00 61 21 128/42 (70) 99 07/06/20 20:00 98.4 61 20 115/29 (57) 98 07/06/20 20:00 Room Air 07/06/20 19:34 62 07/06/20 19:00 68 23 131/42 (71) 98 07/06/20 18:00 61 23 116/51 (72) 100 07/06/20 17:00 60 23 125/45 (71) 99 07/06/20 16:16 56 07/06/20 16:00 Room Air 07/06/20 16:00 98.9 60 23 126/40 (68) 99 07/06/20 15:00 62 23 119/45 (69) 98 07/06/20 14:00 62 22 116/42 (66) 98 07/06/20 13:00 60 22 125/47 (73) 98 07/06/20 12:00 98.6 60 22 118/46 (70) 100 07/06/20 12:00 Room Air 07/06/20 12:00 60 07/06/20 11:00 60 22 113/50 (71) 98 07/06/20 10:00 61 20 119/43 (68) 98 07/06/20 09:45 61 21 129/60 (83) 98 07/06/20 09:30 61 21 117/54 (75) 100 07/06/20 09:20 61 07/06/20 09:15 61 21 125/41 (69) 98 07/06/20 09:00 61 21 127/44 (71) 98 Intake and Output 07/06/20 07/07/20 19:00 07:00 Intake Total 858.33 ml 425 ml Output Total 450 ml 400 ml Balance 408.33 ml 25 ml Intake Oral 360 ml 370 ml IV Total 498.33 ml 55 ml Output Urine Total 450 ml 400 ml # Bowel Movements 2 1 Laboratory Tests 07/07/20 04:35: White Blood Count 8.4, Red Blood Count 4.29, Hemoglobin 7.8L, Hematocrit 26.5L, Mean Corpuscular Volume 62L, Mean Corpuscular Hemoglobin 18.1L, Mean Corpuscular Hemoglobin Concent 29.2L, Red Cell Distribution Width 17.9H, Platelet Count 111L , Mean Platelet Volume 7.9, Neutrophils (%) (Auto) , Lymphocytes (%) (Auto) , Monocytes (%) (Auto) , Eosinophils (%) (Auto) , Basophils (%) (Auto) , Sodium Level 145, Potassium Level 4.3, Chloride Level 118H, Carbon Dioxide Level 21, Anion Gap 6, Blood Urea Nitrogen 13, Creatinine 1.0, Estimat Glomerular Filtration Rate 52.5, Glucose Level 70L, Calcium Level 7.2L Height (Feet): 5 Height (Inches): 1.00 Weight (Pounds): 137 General Appearance: no apparent distress, alert EENT: normal ENT inspection Neck: non-tender, supple Cardiovascular: normal rate, regular rhythm Respiratory/Chest: lungs clear, normal breath sounds Abdomen: non tender, soft Extremities: non-tender Edema: no edema noted Leg (L), no edema noted Leg (R) Neurologic: alert, responsive, motor weakness Skin: warm/dry Assessment/Plan Status: stable Assessment/Plan: 1. Septic shock - doing better. In ICU and off pressor. will downgrade today. 2. Sepsis - cont IV abx. ID is following. 3. ARF - resolving. cont IVF and IV antibiotic. 4. Elevated Troponin most likely due to sepsis and ARF 5. Thrombocytopenia - improved. will consult Dr Yeung. 6. Pneumonia - cont IV abx as above. 7. UTI - cont above antibiotic and follow cultures. 8. Pacemaker - technical specialist cytogenetics is following. 9. Generalized weakness - will order PT, once patient improves. 10. Anemia - stable now. 11. Hyperlipidemia - cont home meds. 12. HX of HTN off meds due to septic shock. 13, Dementia - on namenda 5 mg daily. 14. Atrial fib - off Cardizem and on Amiodarone per technical specialist cytogenetics. 15. Hypernatremia - improved. Matthew Pak MD Jul 07, 2020 08:58
[2020-07-07] MEDS: Digoxin 0.125mg tab ORAL SCH (09:34)
[2020-07-07] MEDS: Milk of Magnesia 30ml Ud ORAL SCH (09:34)
[2020-07-07] MEDS: DULoxetine 30mg cap ORAL SCH (09:34)
[2020-07-07] MEDS: Thiamine 100mg tab ORAL SCH (09:34)
[2020-07-07] MEDS: Amiodarone 200mg tab ORAL SCH ×2 (09:35→21:00)
[2020-07-07] MEDS: Memantine 10mg tab ORAL SCH (09:35)
--- NOTE | 2020-07-07 10:28 | Cardiac Electrophysiology PN ---
Assessment/Plan Assessment/Plan 1. Elevated troponin of 0.08 and 0.144. It could be due to demand ischemia in this patient who also has renal failure with creatinine of 2.6. and sevre anemia with hemoglobin of 6.9. We cannot give the patient aspirin or Plavix in view of platelet count of only 28. Cannot give beta-lopez due to hypotension. 2. S/P Septic shock. The patient is already on IV fluid and IV antibiotic Now off Levophed. 3. 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 We will interrogate 4. Atrial fib with RVR. Now off Cardizem drip. Loaded with Dig 0.5 iv and is on Dig 0.125 po daily and Amiodarone 400 bid Off antocoagulation as Platelet was in 20s . Dig level 0.6 5. Dementia. 6. Hyperlipidemia, on Pravachol. 7. Hypothyroidism, on Synthroid. Subjective Subjective In ICU. No more atrial fib. Atrially paced. Off pressors Objective Last 24 Hour Vital Signs Date Time Temp Pulse Resp B/P (MAP) Pulse Ox O2 Delivery O2 Flow Rate FiO2 07/07/20 09:34 62 07/07/20 07:00 60 17 126/49 (74) 98 07/07/20 06:00 60 20 145/59 (87) 99 07/07/20 05:00 60 20 133/52 (79) 98 07/07/20 04:00 60 07/07/20 04:00 97.8 60 20 119/42 (67) 99 07/07/20 04:00 Room Air 07/07/20 03:00 61 21 142/52 (82) 99 07/07/20 02:00 60 19 134/48 (76) 98 07/07/20 01:00 60 23 135/44 (74) 99 07/07/20 00:00 98.0 60 18 135/52 (79) 98 07/07/20 00:00 60 07/07/20 00:00 Room Air 07/06/20 23:00 60 22 137/42 (73) 97 07/06/20 22:30 61 22 135/50 (78) 99 07/06/20 22:00 61 22 87/69 (75) 99 07/06/20 21:00 61 21 128/42 (70) 99 07/06/20 20:00 98.4 61 20 115/29 (57) 98 07/06/20 20:00 Room Air 07/06/20 19:34 62 07/06/20 19:00 68 23 131/42 (71) 98 07/06/20 18:00 61 23 116/51 (72) 100 07/06/20 17:00 60 23 125/45 (71) 99 07/06/20 16:16 56 07/06/20 16:00 Room Air 07/06/20 16:00 98.9 60 23 126/40 (68) 99 07/06/20 15:00 62 23 119/45 (69) 98 07/06/20 14:00 62 22 116/42 (66) 98 07/06/20 13:00 60 22 125/47 (73) 98 07/06/20 12:00 98.6 60 22 118/46 (70) 100 07/06/20 12:00 Room Air 07/06/20 12:00 60 07/06/20 11:00 60 22 113/50 (71) 98 Intake and Output 07/06/20 07/07/20 19:00 07:00 Intake Total 858.33 ml 425 ml Output Total 450 ml 400 ml Balance 408.33 ml 25 ml Intake Oral 360 ml 370 ml IV Total 498.33 ml 55 ml Output Urine Total 450 ml 400 ml # Bowel Movements 2 1 Laboratory Tests Test 07/07/20 04:35 White Blood Count 8.4 K/UL (4.8-10.8) Red Blood Count 4.29 M/UL (4.20-5.40) Hemoglobin 7.8 G/DL (12.0-16.0) L Hematocrit 26.5 % (37.0-47.0) L Mean Corpuscular Volume 62 FL (80-99) L Mean Corpuscular Hemoglobin 18.1 PG (27.0-31.0) L Mean Corpuscular Hemoglobin Concent 29.2 G/DL (32.0-36.0) L Red Cell Distribution Width 17.9 % (11.6-14.8) H Platelet Count 111 K/UL (150-450) L Mean Platelet Volume 7.9 FL (6.5-10.1) Neutrophils (%) (Auto) % (45.0-75.0) Lymphocytes (%) (Auto) % (20.0-45.0) Monocytes (%) (Auto) % (1.0-10.0) Eosinophils (%) (Auto) % (0.0-3.0) Basophils (%) (Auto) % (0.0-2.0) Sodium Level 145 MMOL/L (136-145) Potassium Level 4.3 MMOL/L (3.5-5.1) Chloride Level 118 MMOL/L (98-107) H Carbon Dioxide Level 21 MMOL/L (21-32) Anion Gap 6 mmol/L (5-15) Blood Urea Nitrogen 13 mg/dL (7-18) Creatinine 1.0 MG/DL (0.55-1.30) Estimat Glomerular Filtration Rate 52.5 mL/min (>60) Glucose Level 70 MG/DL (74-106) L Calcium Level 7.2 MG/DL (8.5-10.1) L Microbiology Date/Time Source Procedure Growth Status 07/04/20 14:00 Nasopharynx Coronavirus COVID-19 PCR ([facility]OT) - Final Complete Objective HEAD AND NECK: Showed no JVD. LUNGS: Clear. CARDIOVASCULAR: Irregular S1 and S2 with no gallop or murmur. Pacer left subclavian ABDOMEN: Soft. EXTREMITIES: No pitting edema. Jorge Abbott MD Jul 07, 2020 10:28
--- NOTE | 2020-07-07 16:17 | Infectious Diseases Prog Note ---
Assessment/Plan Problems: (1) Acute pyelonephritis Assessment & Plan: due to E.coli and Proteus Mirabilis , complicated with sepsis and shock due to gram-negative rods, continue meropenem pending blood culture identification and sensitivity (2) Bilateral pneumonia Assessment & Plan: With interstitial infiltrations on chest x-ray, already on meropenem to cover for sepsis due to gram-negative rods, monitor chest x-ray, aspiration precaution. Patient was tested recently for COVID 19 with PCR test couple of days ago and it was negative as per the primary (3) Septic shock Assessment & Plan: due to the above with gram-negative rods source most likely urine infection and pyelonephritis, will continue meropenem empirically , continue pressors for blood pressure support, monitor final blood culture result (4) Acute renal failure Assessment & Plan: Suspect due to dehydration continue fluids, avoid nephrotoxic's, close monitor of renal function, nephrology is following (5) Dehydration Assessment & Plan: Continue IV fluids for hydration and monitor electrolytes (6) Generalized weakness Assessment & Plan: Supportive care, PT OT eval Subjective Constitutional: Reports: no symptoms HEENT: Reports: no symptoms Respiratory: Reports: no symptoms Cardiovascular: Reports: no symptoms Gastrointestinal/Abdominal: Reports: no symptoms Genitourinary: Reports: no symptoms Neurologic: Reports: no symptoms Psychiatric: Reports: no symptoms Skin: Reports: no symptoms Endocrine: Reports: no symptoms Hematologic: Reports: no symptoms Musculoskeletal: Reports: no symptoms Allergies: Coded Allergies: No Known Allergies (Unverified , 07/03/20) she was febrile last night and hypotensive and subsequently transferred to ICU for blood pressure support with improvement in her temperature Objective Last 24 Hour Vital Signs Date Time Temp Pulse Resp B/P (MAP) Pulse Ox O2 Delivery O2 Flow Rate FiO2 07/07/20 14:00 64 22 160/112 (128) 99 07/07/20 13:00 60 20 131/58 (82) 100 07/07/20 12:00 62 07/07/20 12:00 60 19 135/42 (73) 100 07/07/20 12:00 Room Air 07/07/20 11:00 60 20 138/47 (77) 100 07/07/20 10:00 62 21 134/51 (78) 100 07/07/20 09:34 62 07/07/20 09:00 60 21 131/52 (78) 100 07/07/20 08:00 60 07/07/20 08:00 60 18 130/53 (78) 98 07/07/20 08:00 Room Air 07/07/20 07:50 60 18 99 Room Air 21 07/07/20 07:00 60 17 126/49 (74) 98 07/07/20 06:00 60 20 145/59 (87) 99 07/07/20 05:00 60 20 133/52 (79) 98 07/07/20 04:00 60 07/07/20 04:00 97.8 60 20 119/42 (67) 99 07/07/20 04:00 Room Air 07/07/20 03:00 61 21 142/52 (82) 99 07/07/20 02:00 60 19 134/48 (76) 98 07/07/20 01:00 60 23 135/44 (74) 99 07/07/20 00:00 98.0 60 18 135/52 (79) 98 07/07/20 00:00 60 07/07/20 00:00 Room Air 07/06/20 23:00 60 22 137/42 (73) 97 07/06/20 22:30 61 22 135/50 (78) 99 07/06/20 22:00 61 22 87/69 (75) 99 07/06/20 21:00 61 21 128/42 (70) 99 07/06/20 20:00 98.4 61 20 115/29 (57) 98 07/06/20 20:00 Room Air 07/06/20 19:34 62 07/06/20 19:00 68 23 131/42 (71) 98 07/06/20 18:00 61 23 116/51 (72) 100 07/06/20 17:00 60 23 125/45 (71) 99 Height (Feet): 5 Height (Inches): 1.00 Weight (Pounds): 137 General Appearance: WD/WN, no acute distress HEENT: normocephalic, atraumatic, anicteric, mucous membranes moist, PERRL Respiratory/Chest: chest wall non-tender, lungs clear, normal breath sounds, no respiratory distress, no accessory muscle use Cardiovascular: normal peripheral pulses, normal rate, regular rhythm, no gallop/murmur, no JVD Abdomen: normal bowel sounds, soft, non tender, no organomegaly, non distended, no mass, no scars Extremities: no cyanosis, no clubbing Skin: no rash, no lesions Neurologic/Psychiatric: alert, responsive Lymphatic: no neck adenopathy, no groin adenopathy Musculoskeletal: normal muscle bulk Laboratory Tests Test 07/07/20 04:35 White Blood Count 8.4 K/UL (4.8-10.8) Red Blood Count 4.29 M/UL (4.20-5.40) Hemoglobin 7.8 G/DL (12.0-16.0) L Hematocrit 26.5 % (37.0-47.0) L Mean Corpuscular Volume 62 FL (80-99) L Mean Corpuscular Hemoglobin 18.1 PG (27.0-31.0) L Mean Corpuscular Hemoglobin Concent 29.2 G/DL (32.0-36.0) L Red Cell Distribution Width 17.9 % (11.6-14.8) H Platelet Count 111 K/UL (150-450) L Mean Platelet Volume 7.9 FL (6.5-10.1) Neutrophils (%) (Auto) % (45.0-75.0) Lymphocytes (%) (Auto) % (20.0-45.0) Monocytes (%) (Auto) % (1.0-10.0) Eosinophils (%) (Auto) % (0.0-3.0) Basophils (%) (Auto) % (0.0-2.0) Sodium Level 145 MMOL/L (136-145) Potassium Level 4.3 MMOL/L (3.5-5.1) Chloride Level 118 MMOL/L (98-107) H Carbon Dioxide Level 21 MMOL/L (21-32) Anion Gap 6 mmol/L (5-15) Blood Urea Nitrogen 13 mg/dL (7-18) Creatinine 1.0 MG/DL (0.55-1.30) Estimat Glomerular Filtration Rate 52.5 mL/min (>60) Glucose Level 70 MG/DL (74-106) L Calcium Level 7.2 MG/DL (8.5-10.1) L Current Medications Medications (Trade) Dose Ordered Sig/Kallie Route PRN Reason Start Time Stop Time Status Last Admin Dose Admin Acetaminophen (Tylenol) 650 mg Q4H PRN ORAL Temp >100.5 07/03/20 18:30 08/02/20 18:29 07/04/20 11:45 Acetaminophen (Tylenol) 650 mg Q4H PRN ORAL pain 07/03/20 18:45 08/02/20 18:44 Albuterol Sulfate (Proventil MDI) 1 puff Q4H PRN INH Shortness of Breath 07/03/20 18:45 10/01/20 18:44 Amiodarone HCl (Cordarone) 400 mg EVERY 12 HOURS ORAL 07/05/20 21:00 10/03/20 20:59 07/07/20 09:35 Chlorhexidine Gluconate (Susan-Hex 2%) 1 applic DAILY@2000 TOPIC 07/04/20 20:00 10/02/20 19:59 07/06/20 19:59 Digoxin (Lanoxin) 0.125 mg DAILY ORAL 07/06/20 09:00 10/04/20 08:59 07/07/20 09:34 Duloxetine HCl (Cymbalta) 30 mg DAILY ORAL 07/04/20 09:00 10/02/20 08:59 07/07/20 09:34 Ferrous Sulfate (Feosol) 325 mg DAILY ORAL 07/04/20 09:00 10/02/20 08:59 07/07/20 09:33 Levothyroxine Sodium (Synthroid) 112 mcg DAILY@0630 ORAL 07/04/20 06:30 08/03/20 06:29 07/07/20 05:47 Magnesium Hydroxide (Mom) 30 ml DAILY ORAL 07/04/20 09:00 08/03/20 08:59 07/07/20 09:34 Memantine (Namenda) 5 mg DAILY ORAL 07/04/20 09:00 08/03/20 08:59 07/07/20 09:35 Meropenem 1 gm/ Sodium Chloride 55 ml @ 110 mls/hr Q12HR@0300,1500 IVPB 07/06/20 15:00 07/11/20 14:59 07/07/20 14:32 Midodrine (Pro-Amatine) 10 mg EVERY 8 HOURS ORAL 07/06/20 22:00 10/03/20 08:59 07/07/20 14:31 Mirtazapine (Remeron) 7.5 mg BEDTIME ORAL 07/05/20 21:00 10/01/20 20:59 07/06/20 20:43 Multivitamins (Multivitamins) 1 tab DAILY ORAL 07/04/20 09:00 08/03/20 08:59 07/07/20 09:35 Pantoprazole (Protonix) 40 mg DAILY ORAL 07/04/20 09:00 08/03/20 08:59 07/07/20 09:35 Pravastatin Sodium (Pravachol) 10 mg BEDTIME ORAL 07/03/20 21:00 08/02/20 20:59 07/06/20 20:44 Thiamine HCl (Vitamin B1) 100 mg DAILY ORAL 07/04/20 09:00 08/03/20 08:59 07/07/20 09:34 Zolpidem Tartrate (Ambien) 5 mg BEDTIME PRN ORAL Insomnia 07/03/20 18:45 07/10/20 18:44 Isma Schaffer M.D. Jul 07, 2020 16:17
--- NOTE | 2020-07-07 19:05 | NUR ---
NURSE HAND-OFF REPORT: Latest Vital Signs: Temperature 97.8 , Pulse 63 , B/P 131 /89 , Respiratory Rate 22 , O2 SAT 93 , Room Air, O2 Flow Rate . Vital Sign Comment: EKG Rhythm: A-Paced Rhythm change?: N MD Notified?: - MD Response: Latest Parada Fall Score: 45 Fall Risk: High Risk Safety Measures: Call light Within Reach, Bed Alarm Zone 1, Side Rails Side Rails x2, Bed position Low and Locked. Fall Precautions: Yellow Socks Door Sign Report given to Greta Lowry RN.
--- NOTE | 2020-07-07 19:20 | NUR ---
NURSE NOTES: received pt from Jodie PHAN to transfer the pt from ICU to SDU. pt is awake and AOx 2-3 at this time. monitor shows SR. pace maker noted in left chest, pt is in RA. no SOB noted at this time. pt has purewick and connected to suction. right femoral TLC noted, left and right FA 20G IV site noted. dressing sites are clean, patent, and dry. pt seems clean at this time. VS within normal reach. no active bleeding noted at this time. ABD large,soft, non-tender and active. call light within reach. bed at the lowest positioned, alarmed, and locked. will continue to monitor pt.
[2020-07-07] MEDS: Dyna-Hex 2% Top Sol 2oz TOPIC SCH (19:57)
--- NOTE | 2020-07-07 20:00 | NUR ---
TRANSFER TO FLOOR: Patient transferred to 242-2 SDU , per . Report given to . Belongings and medications given to . Family and or S/O informed of transfer. Addendum: 07/08/20 at 0308 by MATHEUS HAYDEN RN TRANSFER TO FLOOR: Patient transferred to 242-2 SDU , per . Report given to Rip PHAN. Belongings and medications given to . Family and or S/O informed of transfer.
--- NOTE | 2020-07-07 20:42 | NUR ---
NURSE NOTES: spoke with Bre (pt's daughter) regarding transferred out pt from ICU to SDU room 242-2.
[2020-07-08] VITALS: BP 132/62
--- NOTE | 2020-07-08 01:57 | Cardiology Report ---
APPROVED REPORT EKG Measurement Heart [id number] <Conclusion> Atrial fibrillation with rapid ventricular response Low voltage QRS Cannot rule out Anterior infarct, age undetermined Abnormal ECG
--- NOTE | 2020-07-08 02:00 | Cardiology Report ---
APPROVED REPORT EKG Measurement Heart [id number] CA 226P [id number] <Conclusion> Atrial-paced rhythm with prolonged AV conduction Cannot rule out Anterior infarct, age undetermined Abnormal ECG
[2020-07-08] MEDS: Meropenem 1gm/NS 55ml IVPB SCH ×4 (02:14→14:59)
[2020-07-08 04:00] VITALS: BP 118/52
[2020-07-08] MEDS: Midodrine 10mg tab ORAL SCH ×3 (05:39→21:32)
[2020-07-08 07:09] LABS: BASOPHILS % (AUTO) 0.8 % (0.0-2.0); EOSINOPHILS % (AUTO) 5.1 % (0.0-3.0); HEMATOCRIT 30.9 % (37.0-47.0); HEMOGLOBIN 8.7 G/DL (12.0-16.0); LYMPHOCYTES % (AUTO) 25.8 % (20.0-45.0); MEAN CORPUSCULAR VOLUME 63 FL (80-99); MONOCYTES % (AUTO) 7.5 % (1.0-10.0); NEUTROPHILS % (AUTO) 60.8 % (45.0-75.0); PLATELET COUNT 159 K/UL (150-450); RED BLOOD COUNT 4.92 M/UL (4.20-5.40); RED CELL DISTRIBUTION WIDTH 17.4 % (11.6-14.8); WHITE BLOOD COUNT 7.2 K/UL (4.8-10.8)
--- NOTE | 2020-07-08 07:10 | NUR ---
NURSE NOTES: Received patient report from Jc Muhammad. Patient is is AO x2, in bed asleep at this time. No pain or discomfort noted at this time. Patient on RA, breathing is even and unlabored with no signs of respiratory distress. Patient with L and R 20g FA, patent and intact. Bed in lowest position, locked with side rails x2. Call light within reach.
[2020-07-08 07:55] LABS: CALCIUM 8.1 MG/DL (8.5-10.1); POTASSIUM 4.4 MMOL/L (3.5-5.1)
[2020-07-08] MEDS: Digoxin 0.125mg tab ORAL SCH (08:38)
[2020-07-08] MEDS: Thiamine 100mg tab ORAL SCH (08:38)
[2020-07-08] MEDS: DULoxetine 30mg cap ORAL SCH (08:38)
[2020-07-08] MEDS: Milk of Magnesia 30ml Ud ORAL SCH (08:38)
[2020-07-08] MEDS: Memantine 10mg tab ORAL SCH (08:39)
[2020-07-08] MEDS: Amiodarone 200mg tab ORAL SCH ×2 (08:39→20:25)
--- NOTE | 2020-07-08 10:00 | NUR ---
CASE MANAGEMENT:REVIEW 07/08/20 SI: E COLI SEPSIS. PNA. UTI. AFIB. TROPONIN LEAK 97.5 60 22 118/52 98% ON RA H/H-8.7/30.9 NA+146 GLUCOSE-66 IS: IV MEROPENEM Q8HRS MIDODRINE PO Q8HRS DIGOXIN PO QD AMIODARONE PO Q12 REMERON PO QHS CYMBALTA PO QD SYNTHROID PO QD : FROM ICU TO STEP DOWN UNIT DCP: FROM [facility]
--- NOTE | 2020-07-08 10:44 | Cardiology Report ---
APPROVED REPORT EXAM: Two-dimensional and M-mode echocardiogram with Doppler and color Doppler. INDICATION Congestive Heart Failure M-Mode DIMENSIONS IVSd1.1 (0.7-1.1cm)Left Atrium (MM)4.4 (1.6-4.0cm) LVDd4.4 (3.5-5.6cm)Aortic Root2.8 (2.0-3.7cm) PWd0.9 (0.7-1.1cm)Aortic Cusp Exc.1.6 (1.5-2.0cm) IVSs1.7 cmEPSS0.7 (>1.0cm) LVDs2.2 (2.5-4.0cm) PWs1.6 cm <Conclusion> Normal left ventricular chamber size, systolic function and wall motion. Left ventricular ejection fraction estimated to be 65 %. No evidence of left ventricular hypertrophy. Anterior Echo-free space, may be due to pericardial fat or effusion. Mild left atrial enlargement. Right cardiac chamber sizes are within normal limits. Focal aortic valve sclerosis with adequate cusp excursion. Thickened mitral valve leaflets with normal excursion. Mitral annulus and aortic root calcification. Pulmonic valve not well visualized. Normal tricuspid valve structure. IVC is normal in size with physiological collapse. A color flow and spectral Doppler study was performed and revealed: No aortic regurgitation. Mild mitral regurgitation. Mitral diastolic velocities suggest mild left ventricular diastolic dysfunction (Grade I). Moderate tricuspid regurgitation. Tricuspid systolic velocities suggests peak right ventricular systolic pressure of 75 mmHg, consistent with severe pulmonary hypertension. Mild pulmonic regurgitation present.
--- NOTE | 2020-07-08 15:21 | Cardiac Electrophysiology PN ---
Assessment/Plan Assessment/Plan 1. Elevated troponin of 0.08 and 0.144. It could be due to demand ischemia in this patient who also has renal failure with creatinine of 2.6. and sevre anemia with hemoglobin of 6.9. Off aspirin or Plavix in view of platelet count of only 28. Cannot give beta-lopez due to hypotension. 2. S/P Septic shock. The patient is already on IV fluid and IV antibiotic Now off Levophed. 3. 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 Atrial fib with RVR. Now off Cardizem drip. Loaded with Dig 0.5 iv and is on Dig 0.125 po daily and Amiodarone 400 bid Off anticoagulation as Platelet was in 20s . Dig level 0.6 5. Dementia. 6. Hyperlipidemia, on Pravachol. 7. Hypothyroidism, on Synthroid. RIN RN Subjective Subjective Transferred out of ICU. No more atrial fib. Atrially paced. Off pressors Objective Last 24 Hour Vital Signs Date Time Temp Pulse Resp B/P (MAP) Pulse Ox O2 Delivery O2 Flow Rate FiO2 07/08/20 12:00 60 07/08/20 12:00 Room Air 07/08/20 08:38 70 07/08/20 08:00 Room Air 07/08/20 07:25 60 07/08/20 04:00 60 07/08/20 04:00 Room Air 07/08/20 04:00 97.5 60 22 118/52 (74) 98 60 07/08/20 00:00 98.0 60 20 132/62 (85) 99 07/08/20 00:00 Room Air 07/07/20 20:00 Room Air 07/07/20 20:00 62 07/07/20 19:02 71 18 93 Room Air 07/07/20 18:00 63 22 131/89 (103) 93 07/07/20 17:00 60 19 135/42 (73) 100 07/07/20 16:00 60 07/07/20 16:00 Room Air 07/07/20 16:00 60 20 132/36 (68) 100 Intake and Output 0 07/07/20 07/08/20 19:00 07:00 Intake Total 515 ml 155 ml Output Total 250 ml Balance 265 ml 155 ml Intake Oral 460 ml 100 ml IV Total 55 ml 55 ml Output Urine Total 250 ml # Bowel Movements 1 Laboratory Tests Test 07/08/20 03:16 White Blood Count 7.2 K/UL (4.8-10.8) Red Blood Count 4.92 M/UL (4.20-5.40) Hemoglobin 8.7 G/DL (12.0-16.0) L Hematocrit 30.9 % (37.0-47.0) L Mean Corpuscular Volume 63 FL (80-99) L Mean Corpuscular Hemoglobin 17.7 PG (27.0-31.0) L Mean Corpuscular Hemoglobin Concent 28.2 G/DL (32.0-36.0) L Red Cell Distribution Width 17.4 % (11.6-14.8) H Platelet Count 159 K/UL (150-450) Mean Platelet Volume 7.7 FL (6.5-10.1) Neutrophils (%) (Auto) 60.8 % (45.0-75.0) Lymphocytes (%) (Auto) 25.8 % (20.0-45.0) Monocytes (%) (Auto) 7.5 % (1.0-10.0) Eosinophils (%) (Auto) 5.1 % (0.0-3.0) H Basophils (%) (Auto) 0.8 % (0.0-2.0) Sodium Level 146 MMOL/L (136-145) H Potassium Level 4.4 MMOL/L (3.5-5.1) Chloride Level 116 MMOL/L (98-107) H Carbon Dioxide Level 23 MMOL/L (21-32) Anion Gap 7 mmol/L (5-15) Blood Urea Nitrogen 13 mg/dL (7-18) Creatinine 1.0 MG/DL (0.55-1.30) Estimat Glomerular Filtration Rate 52.5 mL/min (>60) Glucose Level 66 MG/DL (74-106) L Calcium Level 8.1 MG/DL (8.5-10.1) L Objective HEAD AND NECK: Showed no JVD. LUNGS: Clear. CARDIOVASCULAR: Irregular S1 and S2 with no gallop or murmur. Pacer left subclavian ABDOMEN: Soft. EXTREMITIES: No pitting edema. Jorge Abbott MD Jul 08, 2020 15:21
--- NOTE | 2020-07-08 17:30 | General Progress Note ---
Subjective Date patient seen: Jul 08, 2020 Time patient seen: 09:00 Constitutional: Reports: weakness HEENT: Reports: no symptoms Cardiovascular: Reports: no symptoms Respiratory: Reports: wheezing Gastrointestinal/Abdominal: Reports: no symptoms Genitourinary: Reports: no symptoms Neurologic/Psychiatric: Reports: weakness Endocrine: Reports: no symptoms Hematologic/Lymphatic: Reports: anemia Allergies: Coded Allergies: No Known Allergies (Unverified , 07/03/20) Subjective Afebrile. no sob or chest pain. no nausea or vomiting. she is better and transferred to step down last night. Objective Last 24 Hour Vital Signs Date Time Temp Pulse Resp B/P (MAP) Pulse Ox O2 Delivery O2 Flow Rate FiO2 07/08/20 16:00 60 07/08/20 16:00 Room Air 07/08/20 12:00 60 07/08/20 12:00 Room Air 07/08/20 08:38 70 07/08/20 08:00 Room Air 07/08/20 07:25 60 07/08/20 04:00 60 07/08/20 04:00 Room Air 07/08/20 04:00 97.5 60 22 118/52 (74) 98 60 07/08/20 00:00 98.0 60 20 132/62 (85) 99 07/08/20 00:00 Room Air 07/07/20 20:00 Room Air 07/07/20 20:00 62 07/07/20 19:02 71 18 93 Room Air 21 07/07/20 18:00 63 22 131/89 (103) 93 Intake and Output 07/07/20 07/08/20 19:00 07:00 Intake Total 515 ml 155 ml Output Total 250 ml Balance 265 ml 155 ml Intake Oral 460 ml 100 ml IV Total 55 ml 55 ml Output Urine Total 250 ml # Bowel Movements 1 Laboratory Tests 07/08/20 03:16: White Blood Count 7.2, Red Blood Count 4.92, Hemoglobin 8.7L, Hematocrit 30.9L, Mean Corpuscular Volume 63L, Mean Corpuscular Hemoglobin 17.7L, Mean Corpuscular Hemoglobin Concent 28.2L, Red Cell Distribution Width 17.4H, Platelet Count 159, Mean Platelet Volume 7.7, Neutrophils (%) (Auto) 60.8, Lymphocytes (%) (Auto) 25.8, Monocytes (%) (Auto) 7.5, Eosinophils (%) (Auto) 5.1H, Basophils (%) (Auto) 0.8, Sodium Level 146H, Potassium Level 4.4, Chloride Level 116H, Carbon Dioxide Level 23, Anion Gap 7, Blood Urea Nitrogen 13, Creatinine 1.0, Estimat Glomerular Filtration Rate 52.5, Glucose Level 66L, Calcium Level 8.1L Height (Feet): 5 Height (Inches): 1.00 Weight (Pounds): 137 General Appearance: no apparent distress, alert EENT: normal ENT inspection Neck: non-tender, supple Cardiovascular: normal rate, regular rhythm Respiratory/Chest: chest wall non-tender, lungs clear Abdomen: non tender, soft Extremities: non-tender Edema: no edema noted Leg (L), no edema noted Leg (R) Neurologic: alert, responsive Skin: warm/dry Assessment/Plan Status: stable Assessment/Plan: 1. Septic shock - resolved. doing better. In step down and off pressor. 2. Sepsis - cont IV abx. ID is following. 3. ARF - resolving. off IVF and cont IV antibiotic. 4. Elevated Troponin most likely due to sepsis and ARF 5. Thrombocytopenia - resolved. was not seen by dr Yeung. 6. Pneumonia - cont IV abx as above. 7. UTI - cont above antibiotic and follow cultures. 8. Pacemaker - manganese heater is following. 9. Generalized weakness - will order PT eval tomorrow. 10. Anemia - stable now. 11. Hyperlipidemia - cont home meds. 12. HX of HTN off meds due to septic shock. 13, Dementia - on namenda 5 mg daily. 14. Atrial fib - off Cardizem and on Amiodarone and digoxin per manganese heater. Matthew Pak MD Jul 08, 2020 17:30
--- NOTE | 2020-07-08 19:15 | NUR ---
NURSE HAND-OFF REPORT: Important Events on Shift:Restraint started on this shift 1630 Patient Status: Stable/ Full Code Diet: Mech soft Pending Orders: NA Pending Results/Labs:NA Pending MD notification:NA Latest Vital Signs: Temperature 97.5 , Pulse 60 , B/P 118 /52 , Respiratory Rate 22 , O2 SAT 98 , Room Air, O2 Flow Rate . Vital Sign Comment: Stable EKG Rhythm: SR w/ A paced Rhythm change?: N MD Notified?: - MD Response: Latest Parada Fall Score: 45 Fall Risk: High Risk Safety Measures: Call light Within Reach, Bed Alarm Zone 1, Side Rails Side Rails x2, Bed position Low and Locked. Fall Precautions: Yellow Socks Door Sign Report given to EMILIE Mariano.
--- NOTE | 2020-07-08 19:20 | NUR ---
NURSE NOTES: pt report received from Miesha Martin RN. pt condition remains unchanged. pt is alert and oriented times 1, responds to name. pt is breathing room air 99% O2, no acute resp distress noted. 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 pt bed is low, locked, armed, call light within reach, bed rails up times 3. will follow plan of care.
[2020-07-08 20:00] VITALS: BP 154/67
[2020-07-08] MEDS: Dyna-Hex 2% Top Sol 2oz TOPIC SCH (20:25)
[2020-07-08] MEDS: cefTRIAXone 2 GM in D5W 55 ML IVPB SCH (20:26)
--- NOTE | 2020-07-08 21:30 | NUR ---
NURSE NOTES: PM meds given. Cleaned pt. Will monitor for any changes.
--- NOTE | 2020-07-08 21:52 | Infectious Diseases Prog Note ---
Assessment/Plan Problems: (1) Acute pyelonephritis Assessment & Plan: due to E.coli and Proteus Mirabilis , complicated with sepsis and shock due to E coli , will switch meropenem to ceftriaxone to complete two weeks course of treatment , and repeat blood culture x 2 to confirm clearance (2) Bilateral pneumonia Assessment & Plan: With interstitial infiltrations on chest x-ray, now on ceftriaxone to cover for bacteremia for two weeks , monitor chest x-ray, aspiration precaution. Patient was tested recently for COVID 19 with PCR test couple of days ago and it was negative as per the primary (3) Septic shock Assessment & Plan: due to the above with E coli , source most likely urine infection and pyelonephritis, will switch meropenem empirically to ceftriaxone to treat for two weeks (4) Acute renal failure Assessment & Plan: Suspect due to dehydration continue fluids, avoid nephrotoxic's, close monitor of renal function, nephrology follow up is recommended (5) Dehydration Assessment & Plan: Continue IV fluids for hydration and monitor electrolytes (6) Generalized weakness Assessment & Plan: Supportive care, PT OT eval Subjective Constitutional: Reports: no symptoms HEENT: Reports: no symptoms Respiratory: Reports: no symptoms Breasts: Reports: no symptoms Cardiovascular: Reports: no symptoms Gastrointestinal/Abdominal: Reports: no symptoms Genitourinary: Reports: no symptoms Neurologic: Reports: no symptoms Psychiatric: Reports: no symptoms Skin: Reports: no symptoms Endocrine: Reports: no symptoms Hematologic: Reports: no symptoms Allergies: Coded Allergies: No Known Allergies (Unverified , 07/03/20) she was febrile last night and hypotensive and subsequently transferred to ICU for blood pressure support with improvement in her temperature Objective Last 24 Hour Vital Signs Date Time Temp Pulse Resp B/P (MAP) Pulse Ox O2 Delivery O2 Flow Rate FiO2 07/08/20 20:00 98.1 60 17 154/67 (96) 98 60 07/08/20 20:00 60 07/08/20 16:00 60 07/08/20 16:00 Room Air 07/08/20 12:00 60 07/08/20 12:00 Room Air 07/08/20 08:38 70 07/08/20 08:00 Room Air 07/08/20 07:25 60 07/08/20 04:00 60 07/08/20 04:00 Room Air 07/08/20 04:00 97.5 60 22 118/52 (74) 98 60 07/08/20 00:00 98.0 60 20 132/62 (85) 99 07/08/20 00:00 Room Air Height (Feet): 5 Height (Inches): 1.00 Weight (Pounds): 137 General Appearance: WD/WN, no acute distress HEENT: normocephalic, atraumatic, anicteric, mucous membranes moist, PERRL Respiratory/Chest: chest wall non-tender, lungs clear, normal breath sounds, no respiratory distress, no accessory muscle use Cardiovascular: normal peripheral pulses, normal rate, regular rhythm, no gallop/murmur, no JVD Abdomen: normal bowel sounds, soft, non tender, no organomegaly, non distended, no mass Genitourinary: normal external genitalia Extremities: no cyanosis, no clubbing Skin: no rash, no lesions Neurologic/Psychiatric: 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 grossly normal, alert Lymphatic: no neck adenopathy Musculoskeletal: normal muscle bulk, no effusion Laboratory Tests Test 07/08/20 03:16 White Blood Count 7.2 K/UL (4.8-10.8) Red Blood Count 4.92 M/UL (4.20-5.40) Hemoglobin 8.7 G/DL (12.0-16.0) L Hematocrit 30.9 % (37.0-47.0) L Mean Corpuscular Volume 63 FL (80-99) L Mean Corpuscular Hemoglobin 17.7 PG (27.0-31.0) L Mean Corpuscular Hemoglobin Concent 28.2 G/DL (32.0-36.0) L Red Cell Distribution Width 17.4 % (11.6-14.8) H Platelet Count 159 K/UL (150-450) Mean Platelet Volume 7.7 FL (6.5-10.1) Neutrophils (%) (Auto) 60.8 % (45.0-75.0) Lymphocytes (%) (Auto) 25.8 % (20.0-45.0) Monocytes (%) (Auto) 7.5 % (1.0-10.0) Eosinophils (%) (Auto) 5.1 % (0.0-3.0) H Basophils (%) (Auto) 0.8 % (0.0-2.0) Sodium Level 146 MMOL/L (136-145) H Potassium Level 4.4 MMOL/L (3.5-5.1) Chloride Level 116 MMOL/L (98-107) H Carbon Dioxide Level 23 MMOL/L (21-32) Anion Gap 7 mmol/L (5-15) Blood Urea Nitrogen 13 mg/dL (7-18) Creatinine 1.0 MG/DL (0.55-1.30) Estimat Glomerular Filtration Rate 52.5 mL/min (>60) Glucose Level 66 MG/DL (74-106) L Calcium Level 8.1 MG/DL (8.5-10.1) L Current Medications Medications (Trade) Dose Ordered Sig/Kallie Route PRN Reason Start Time Stop Time Status Last Admin Dose Admin Acetaminophen (Tylenol) 650 mg Q4H PRN ORAL Temp >100.5 07/03/20 18:30 08/02/20 18:29 07/04/20 11:45 Acetaminophen (Tylenol) 650 mg Q4H PRN ORAL pain 07/03/20 18:45 08/02/20 18:44 Albuterol Sulfate (Proventil MDI) 1 puff Q4H PRN INH Shortness of Breath 07/03/20 18:45 10/01/20 18:44 Albuterol/ Ipratropium (Albuterol/ Ipratropium) 3 ml Q4H PRN HHN Shortness of Breath 07/08/20 11:00 07/13/20 10:59 Amiodarone HCl (Cordarone) 400 mg EVERY 12 HOURS ORAL 07/05/20 21:00 10/03/20 20:59 07/08/20 20:25 Ceftriaxone Sodium 2 gm/ Dextrose 55 ml @ 110 mls/hr Q24H IVPB 07/08/20 21:00 07/15/20 20:59 07/08/20 20:26 Chlorhexidine Gluconate (Susan-Hex 2%) 1 applic DAILY@2000 TOPIC 07/04/20 20:00 10/02/20 19:59 07/08/20 20:25 Digoxin (Lanoxin) 0.125 mg DAILY ORAL 07/06/20 09:00 10/04/20 08:59 07/08/20 08:38 Duloxetine HCl (Cymbalta) 30 mg DAILY ORAL 07/04/20 09:00 10/02/20 08:59 07/08/20 08:38 Levothyroxine Sodium (Synthroid) 112 mcg DAILY@0630 ORAL 07/04/20 06:30 08/03/20 06:29 07/08/20 05:39 Magnesium Hydroxide (Mom) 30 ml DAILY ORAL 07/04/20 09:00 08/03/20 08:59 07/08/20 08:38 Memantine (Namenda) 5 mg DAILY ORAL 07/04/20 09:00 08/03/20 08:59 07/08/20 08:39 Midodrine (Pro-Amatine) 10 mg EVERY 8 HOURS ORAL 07/06/20 22:00 10/03/20 08:59 07/08/20 21:32 Mirtazapine (Remeron) 7.5 mg BEDTIME ORAL 07/05/20 21:00 10/01/20 20:59 07/08/20 20:25 Multivitamins (Multivitamins) 1 tab DAILY ORAL 07/04/20 09:00 08/03/20 08:59 07/08/20 08:38 Pantoprazole (Protonix) 40 mg DAILY ORAL 07/04/20 09:00 08/03/20 08:59 07/08/20 08:38 Pravastatin Sodium (Pravachol) 10 mg BEDTIME ORAL 07/03/20 21:00 08/02/20 20:59 07/08/20 20:25 Thiamine HCl (Vitamin B1) 100 mg DAILY ORAL 07/04/20 09:00 08/03/20 08:59 07/08/20 08:38 Zolpidem Tartrate (Ambien) 5 mg BEDTIME PRN ORAL Insomnia 07/03/20 18:45 07/10/20 18:44 Isma Schaffer M.D. Jul 08, 2020 21:52
--- NOTE | 2020-07-08 23:30 | NUR ---
NURSE NOTES: Vital signs taken; WNL. Turned & repositioned for comfort. Pt is calm. Offered water.
[2020-07-09] VITALS (7 sets, daily range): BP systolic 134–165; BP diastolic 55–64
--- NOTE | 2020-07-09 01:30 | NUR ---
NURSE NOTES: Pt is asleep in bed. Unlabored breathing. Will continue to monitor for changes.
--- NOTE | 2020-07-09 03:30 | NUR ---
NURSE NOTES: Pt awake. Blood drawn from left femoral TLC for AM labs; all ports are flushed & patent. Oral care done. Offered drinking water but pt refused.
[2020-07-09 04:42] LABS: EOSINOPHILS % (AUTO) 4.3 % (0.0-3.0); HEMATOCRIT 28.4 % (37.0-47.0); HEMOGLOBIN 8.1 G/DL (12.0-16.0); LYMPHOCYTES % (AUTO) 25.2 % (20.0-45.0); MEAN CORPUSCULAR VOLUME 62 FL (80-99); MONOCYTES % (AUTO) 6.7 % (1.0-10.0); NEUTROPHILS % (AUTO) 62.9 % (45.0-75.0); PLATELET COUNT 141 K/UL (150-450); RED BLOOD COUNT 4.58 M/UL (4.20-5.40); RED CELL DISTRIBUTION WIDTH 17.3 % (11.6-14.8); WHITE BLOOD COUNT 7.5 K/UL (4.8-10.8)
[2020-07-09 04:46] LABS: ANION GAP 6 mmol/L (5-15); BLOOD UREA NITROGEN 8 mg/dL (7-18); CALCIUM 8.3 MG/DL (8.5-10.1); CARBON DIOXIDE 26 MMOL/L (21-32); CHLORIDE 115 MMOL/L (98-107); CREATININE 0.8 MG/DL (0.55-1.30); SODIUM 147 MMOL/L (136-145)
[2020-07-09] MEDS: Midodrine 10mg tab ORAL SCH ×3 (05:45→22:53)
--- NOTE | 2020-07-09 07:37 | NUR ---
NURSE HAND-OFF REPORT: Important Events on Shift:[NA] Patient Status: [stable] Diet: [per doctor order] Pending Orders: [na] Pending Results/Labs:[na] Pending MD notification:[na] Latest Vital Signs: Temperature 96.8 , Pulse 60 , B/P 165 /55 , Respiratory Rate 19 , O2 SAT 96 , Room Air, O2 Flow Rate . Vital Sign Comment: [stable] EKG Rhythm: 1st degree HB/ A paced Rhythm change?: N MD Notified?: - MD Response: Latest Parada Fall Score: 45 Fall Risk: High Risk Safety Measures: Call light Within Reach, Bed Alarm Zone 1, Side Rails Side Rails x2, Bed position Low and Locked. Fall Precautions: Yellow Socks Door Sign Report given to [Lynda PHANnurse discharge].
--- NOTE | 2020-07-09 08:20 | NUR ---
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
[2020-07-09] MEDS: Thiamine 100mg tab ORAL SCH (08:42)
[2020-07-09] MEDS: Memantine 10mg tab ORAL SCH (08:43)
[2020-07-09] MEDS: DULoxetine 30mg cap ORAL SCH (08:43)
[2020-07-09] MEDS: Milk of Magnesia 30ml Ud ORAL SCH (08:44)
[2020-07-09] MEDS: Amiodarone 200mg tab ORAL SCH ×2 (08:44→20:29)
--- NOTE | 2020-07-09 08:58 | General Progress Note ---
Subjective Date patient seen: Jul 09, 2020 Time patient seen: 08:30 Constitutional: Reports: weakness HEENT: Reports: no symptoms Cardiovascular: Reports: no symptoms Respiratory: Reports: no symptoms Gastrointestinal/Abdominal: Reports: no symptoms Neurologic/Psychiatric: Reports: weakness Endocrine: Reports: no symptoms Hematologic/Lymphatic: Reports: anemia Allergies: Coded Allergies: No Known Allergies (Unverified , 07/03/20) Subjective No sob or chest pain. no nausea or vomiting. she is awake and afebrile. Eating breakfast. Objective Last 24 Hour Vital Signs Date Time Temp Pulse Resp B/P (MAP) Pulse Ox O2 Delivery O2 Flow Rate FiO2 07/09/20 08:31 96.3 60 18 134/61 (85) 99 07/09/20 04:00 96.8 60 19 165/55 (91) 96 07/09/20 04:00 Room Air 07/09/20 04:00 60 07/09/20 00:00 60 07/09/20 00:00 Room Air 07/09/20 00:00 97.7 60 18 140/58 (85) 98 07/08/20 20:00 98.1 60 17 154/67 (96) 98 60 07/08/20 20:00 60 07/08/20 20:00 Room Air 07/08/20 16:00 60 07/08/20 16:00 Room Air 07/08/20 12:00 60 07/08/20 12:00 Room Air Intake and Output 07/08/20 07/09/20 19:00 07:00 Intake Total 110 ml Output Total 300 ml Balance -190 ml IV Total 110 ml Output Urine Total 300 ml Laboratory Tests 07/09/20 04:00: White Blood Count 7.5, Red Blood Count 4.58, Hemoglobin 8.1L, Hematocrit 28.4L, Mean Corpuscular Volume 62L, Mean Corpuscular Hemoglobin 17.7L, Mean Corpuscular Hemoglobin Concent 28.6L, Red Cell Distribution Width 17.3H, Platelet Count 141L , Mean Platelet Volume 6.6, Neutrophils (%) (Auto) 62.9, Lymphocytes (%) (Auto) 25.2, Monocytes (%) (Auto) 6.7, Eosinophils (%) (Auto) 4.3H, Basophils (%) (Auto) 1.0, Sodium Level 147H, Potassium Level 4.0, Chloride Level 115H, Carbon Dioxide Level 26, Anion Gap 6, Blood Urea Nitrogen 8, Creatinine 0.8, Estimat Glomerular Filtration Rate > 60, Glucose Level 84, Calcium Level 8.3L Height (Feet): 5 Height (Inches): 1.00 Weight (Pounds): 137 General Appearance: no apparent distress, alert EENT: normal ENT inspection Neck: non-tender, supple Cardiovascular: normal rate, regular rhythm Respiratory/Chest: lungs clear, normal breath sounds Abdomen: non tender, soft Extremities: non-tender Edema: no edema noted Leg (L), no edema noted Leg (R) Neurologic: alert, responsive Skin: warm/dry Assessment/Plan Status: stable Assessment/Plan: 1. Septic shock - resolved. doing better. In step down and off pressor. 2. Sepsis - cont IV rocephin for total of 2 wks. ID is following. 3. ARF - resolving. off IVF and cont IV antibiotic. 4. Elevated Troponin most likely due to sepsis and ARF 5. Thrombocytopenia - resolved. was not seen by dr Yeung. 6. Pneumonia - cont IV abx as above. 7. UTI - cont above antibiotic for total of 2 wks. 8. Pacemaker - filbert grower is following. 9. Generalized weakness - will order PT eval tomorrow. 10. Anemia - stable now. 11. Hyperlipidemia - cont home meds. 12. HX of HTN off meds due to septic shock. 13, Dementia - on namenda 5 mg daily. 14. Atrial fib - off Cardizem and on Amiodarone and digoxin per filbert grower. Matthew Pak MD Jul 09, 2020 08:58
[2020-07-09] MEDS: Digoxin 0.125mg tab ORAL SCH (09:00)
--- NOTE | 2020-07-09 09:45 | NUR ---
NURSE NOTES: pt report recvd. Pt is awake and irritable AOx1 and is on room air with 98% with no sign of sob or resp distress. pt is on compliance monitor showing NSR, no acute cardiac distress. pt bed is low, locked, armed, call light within reach, bed rails up times 3. will follow plan of care.
--- NOTE | 2020-07-09 12:16 | NUR ---
NURSE NOTES: OK with Dr. Pak to transfer patient to Telemetry
--- NOTE | 2020-07-09 15:00 | Cardiac Electrophysiology PN ---
Assessment/Plan Assessment/Plan 1. Elevated troponin of 0.08 and 0.144. It could be due to demand ischemia in this patient who also has renal failure with creatinine of 2.6. and severe anemia with hemoglobin of 6.9. Off aspirin or Plavix in view of platelet count of only 28. Cannot give beta-lopez due to hypotension. 2. S/P Septic shock. The patient is already on IV fluid and IV antibiotic Now off Levophed. 3. S/P [employer] pacemaker on 07/03/2018 with Nl Fx 4. Atrial fib with RVR. Now off Cardizem drip. Continue Dig 0.125 po daily and Amiodarone 400 bid Off anticoagulation as Platelet was in 20s . Dig level 0.6 5. Dementia. 6. Hyperlipidemia, on Pravachol. 7. Hypothyroidism, on Synthroid. DW RN Subjective Subjective No more atrial fib. Atrially paced. Off pressors. No CP or SOB Objective Last 24 Hour Vital Signs Date Time Temp Pulse Resp B/P (MAP) Pulse Ox O2 Delivery O2 Flow Rate FiO2 07/09/20 12:00 60 07/09/20 12:00 97.9 63 20 145/64 (91) 100 07/09/20 12:00 Room Air 07/09/20 09:00 Room Air 07/09/20 09:00 60 07/09/20 08:31 96.3 60 18 134/61 (85) 99 07/09/20 07:37 60 07/09/20 04:00 96.8 60 19 165/55 (91) 96 07/09/20 04:00 Room Air 07/09/20 04:00 60 07/09/20 00:00 60 07/09/20 00:00 Room Air 07/09/20 00:00 97.7 60 18 140/58 (85) 98 07/08/20 20:00 98.1 60 17 154/67 (96) 98 60 07/08/20 20:00 60 07/08/20 20:00 Room Air 07/08/20 16:00 60 07/08/20 16:00 Room Air Intake and Output 07/08/20 07/09/20 19:00 07:00 Intake Total 110 ml Output Total 300 ml Balance -190 ml IV Total 110 ml Output Urine Total 300 ml Laboratory Tests Test 07/09/20 04:00 White Blood Count 7.5 K/UL (4.8-10.8) Red Blood Count 4.58 M/UL (4.20-5.40) Hemoglobin 8.1 G/DL (12.0-16.0) L Hematocrit 28.4 % (37.0-47.0) L Mean Corpuscular Volume 62 FL (80-99) L Mean Corpuscular Hemoglobin 17.7 PG (27.0-31.0) L Mean Corpuscular Hemoglobin Concent 28.6 G/DL (32.0-36.0) L Red Cell Distribution Width 17.3 % (11.6-14.8) H Platelet Count 141 K/UL (150-450) L Mean Platelet Volume 6.6 FL (6.5-10.1) Neutrophils (%) (Auto) 62.9 % (45.0-75.0) Lymphocytes (%) (Auto) 25.2 % (20.0-45.0) Monocytes (%) (Auto) 6.7 % (1.0-10.0) Eosinophils (%) (Auto) 4.3 % (0.0-3.0) H Basophils (%) (Auto) 1.0 % (0.0-2.0) Sodium Level 147 MMOL/L (136-145) H Potassium Level 4.0 MMOL/L (3.5-5.1) Chloride Level 115 MMOL/L (98-107) H Carbon Dioxide Level 26 MMOL/L (21-32) Anion Gap 6 mmol/L (5-15) Blood Urea Nitrogen 8 mg/dL (7-18) Creatinine 0.8 MG/DL (0.55-1.30) Estimat Glomerular Filtration Rate > 60 mL/min (>60) Glucose Level 84 MG/DL (74-106) Calcium Level 8.3 MG/DL (8.5-10.1) L Objective HEAD AND NECK: Showed no JVD. LUNGS: Clear. CARDIOVASCULAR: Irregular S1 and S2 with no gallop or murmur. Pacer left subclavian ABDOMEN: Soft. EXTREMITIES: No pitting edema. Jorge Abbott MD Jul 09, 2020 15:00
--- NOTE | 2020-07-09 18:10 | NUR ---
NURSE NOTES: Received pt from SDU EMILIE Wright, pt is awake and confused, pt is in RA, no SOB or acute respiratory distress noted. pt has iv access L arm 20G SL, iv flushed well but arm is swollen. pt has L femoral TLC. Pt is on continues heart monitoring. no complain of pain at this moment, skin is intact. pt has bi wrist restraints, skin is intact. SCD is on. all needs attended, bed is locked and is in the lowest position, call light within easy reach. will continue to monitor.
--- NOTE | 2020-07-09 18:12 | NUR ---
NURSE HAND-OFF REPORT: Important Events on Shift: none Patient Status: stable Diet:reg soft Pending Orders: CBC BMP Pending Results/Labs:CBC BMP Pending MD notification: Latest Vital Signs: Temperature 98.1 , Pulse 81 , B/P 146 /59 , Respiratory Rate 18 , O2 SAT 99 , Room Air, O2 Flow Rate . Vital Sign Comment: EKG Rhythm: A-Paced Rhythm change?: N MD Notified?: - MD Response: Latest Parada Fall Score: 45 Fall Risk: High Risk Safety Measures: Call light Within Reach, Bed Alarm Zone 1, Side Rails Side Rails x2, Bed position Low and Locked. Fall Precautions: Yellow Socks Door Sign Report given to Afsson.
--- NOTE | 2020-07-09 19:24 | NUR ---
NURSE HAND-OFF REPORT: Important Events on Shift:pt asking pain med ferequently. BS 68 at 1630, orang juice given and BS 121. Patient Status: Diet: Pending Orders: Pending Results/Labs: Pending MD notification: Latest Vital Signs: Temperature 96.3 , Pulse 60 , B/P 142 /55 , Respiratory Rate 18 , O2 SAT 94 , Room Air, O2 Flow Rate . Vital Sign Comment: EKG Rhythm: A-Paced Rhythm change?: N MD Notified?: - MD Response: Latest Parada Fall Score: 45 Fall Risk: High Risk Safety Measures: Call light Within Reach, Bed Alarm Zone 1, Side Rails Side Rails x2, Bed position Low and Locked. Fall Precautions: Yellow Socks Door Sign Report given to . Pt is awake and stable, no stress noted, no complain of pain at this moment. endorsed plan of care, endorsed to monitor BS and pain. Addendum: 07/09/20 at 1929 by Ebony Coe RN ERROR WROMG PT.
--- NOTE | 2020-07-09 19:29 | NUR ---
NURSE HAND-OFF REPORT: Important Events on Shift:Pt transferred from SDU 1810. Patient Status: Diet: Pending Orders: Pending Results/Labs: Pending MD notification: Latest Vital Signs: Temperature 96.3 , Pulse 60 , B/P 142 /55 , Respiratory Rate 18 , O2 SAT 94 , Room Air, O2 Flow Rate . Vital Sign Comment: EKG Rhythm: A-Paced Rhythm change?: N MD Notified?: - MD Response: Latest Parada Fall Score: 45 Fall Risk: High Risk Safety Measures: Call light Within Reach, Bed Alarm Zone 1, Side Rails Side Rails x2, Bed position Low and Locked. Fall Precautions: Yellow Socks Door Sign Report given to . Pt is awake and stable, no stress noted, endorsed plan of care, endorsed to F/U for L femoral TLC.
--- NOTE | 2020-07-09 19:30 | NUR ---
NURSE NOTES: Patient received from EMILIE Beck. Patient is A/O x 1. Patient is very talkative, does not know where she is at right now. Patient's left arm is noted to be swollen. Patient is on room air with no signs of acute respiratory distress noted. Patient appears to be calm and has no complaints as of the moment. Patient has a Right femoral line and a left arm 20 gauge saline locked. Bed is in the lowest position and locked, call light within reach. Will continue to monitor.
[2020-07-09] MEDS: Dyna-Hex 2% Top Sol 2oz TOPIC SCH (20:28)
[2020-07-09] MEDS: cefTRIAXone 2 GM in D5W 55 ML IVPB SCH (20:29)
--- NOTE | 2020-07-09 20:50 | Infectious Diseases Prog Note ---
Assessment/Plan Problems: (1) Acute pyelonephritis Assessment & Plan: due to E.coli and Proteus Mirabilis , complicated with sepsis and shock due to E coli , will treat with ceftriaxone to complete two weeks total course of treatment , and monitor repeated blood culture x 2 to confirm clearance (2) Bilateral pneumonia Assessment & Plan: With interstitial infiltrations on chest x-ray, now on ceftriaxone to cover for bacteremia for two weeks , monitor chest x-ray, aspiration precaution. Patient was tested for COVID 19 with PCR test which is negative (3) Septic shock Assessment & Plan: due to the above with E coli , source most likely urine infection and pyelonephritis, will continue ceftriaxone to treat for two weeks total course. (4) Acute renal failure Assessment & Plan: Suspect due to dehydration continue fluids, avoid nephrotoxic's, close monitor of renal function, nephrology follow up as needed (5) Dehydration Assessment & Plan: Continue IV fluids for hydration and monitor electrolytes (6) Generalized weakness Assessment & Plan: Supportive care, PT OT eval Subjective Constitutional: Reports: no symptoms HEENT: Reports: no symptoms Respiratory: Reports: no symptoms Breasts: Reports: no symptoms Cardiovascular: Reports: no symptoms Gastrointestinal/Abdominal: Reports: no symptoms Genitourinary: Reports: no symptoms Neurologic: Reports: confusion Psychiatric: Reports: no symptoms Skin: Reports: no symptoms Endocrine: Reports: no symptoms Hematologic: Reports: no symptoms Musculoskeletal: Reports: no symptoms Allergies: Coded Allergies: No Known Allergies (Unverified , 07/03/20) she was febrile last night and hypotensive and subsequently transferred to ICU for blood pressure support with improvement in her temperature Objective Last 24 Hour Vital Signs Date Time Temp Pulse Resp B/P (MAP) Pulse Ox O2 Delivery O2 Flow Rate FiO2 07/09/20 18:30 96.3 60 18 142/55 (84) 94 07/09/20 16:00 Room Air 07/09/20 16:00 81 07/09/20 16:00 98.1 60 18 146/59 (88) 99 07/09/20 12:00 60 07/09/20 12:00 97.9 63 20 145/64 (91) 100 07/09/20 12:00 Room Air 07/09/20 09:00 Room Air 07/09/20 09:00 60 07/09/20 08:31 96.3 60 18 134/61 (85) 99 07/09/20 07:37 60 07/09/20 04:00 96.8 60 19 165/55 (91) 96 07/09/20 04:00 Room Air 07/09/20 04:00 60 07/09/20 00:00 60 07/09/20 00:00 Room Air 07/09/20 00:00 97.7 60 18 140/58 (85) 98 Height (Feet): 5 Height (Inches): 1.00 Weight (Pounds): 137 General Appearance: WD/WN, no acute distress HEENT: normocephalic, atraumatic, anicteric, mucous membranes moist, PERRL Respiratory/Chest: chest wall non-tender, lungs clear, normal breath sounds, no respiratory distress, no accessory muscle use Cardiovascular: normal peripheral pulses, normal rate, regular rhythm, no gallop/murmur, no JVD Abdomen: normal bowel sounds, soft, non tender, no organomegaly, non distended, no mass, no scars Genitourinary: normal external genitalia Extremities: no cyanosis, no clubbing Skin: no rash, no lesions Neurologic/Psychiatric: no motor/sensory deficits, alert, responsive Lymphatic: no neck adenopathy, no groin adenopathy Musculoskeletal: normal muscle bulk, no effusion Laboratory Tests Test 07/09/20 04:00 White Blood Count 7.5 K/UL (4.8-10.8) Red Blood Count 4.58 M/UL (4.20-5.40) Hemoglobin 8.1 G/DL (12.0-16.0) L Hematocrit 28.4 % (37.0-47.0) L Mean Corpuscular Volume 62 FL (80-99) L Mean Corpuscular Hemoglobin 17.7 PG (27.0-31.0) L Mean Corpuscular Hemoglobin Concent 28.6 G/DL (32.0-36.0) L Red Cell Distribution Width 17.3 % (11.6-14.8) H Platelet Count 141 K/UL (150-450) L Mean Platelet Volume 6.6 FL (6.5-10.1) Neutrophils (%) (Auto) 62.9 % (45.0-75.0) Lymphocytes (%) (Auto) 25.2 % (20.0-45.0) Monocytes (%) (Auto) 6.7 % (1.0-10.0) Eosinophils (%) (Auto) 4.3 % (0.0-3.0) H Basophils (%) (Auto) 1.0 % (0.0-2.0) Sodium Level 147 MMOL/L (136-145) H Potassium Level 4.0 MMOL/L (3.5-5.1) Chloride Level 115 MMOL/L (98-107) H Carbon Dioxide Level 26 MMOL/L (21-32) Anion Gap 6 mmol/L (5-15) Blood Urea Nitrogen 8 mg/dL (7-18) Creatinine 0.8 MG/DL (0.55-1.30) Estimat Glomerular Filtration Rate > 60 mL/min (>60) Glucose Level 84 MG/DL (74-106) Calcium Level 8.3 MG/DL (8.5-10.1) L Current Medications Medications (Trade) Dose Ordered Sig/Kallie Route PRN Reason Start Time Stop Time Status Last Admin Dose Admin Acetaminophen (Tylenol) 650 mg Q4H PRN ORAL Temp >100.5 07/03/20 18:30 08/02/20 18:29 07/04/20 11:45 Acetaminophen (Tylenol) 650 mg Q4H PRN ORAL pain 07/03/20 18:45 08/02/20 18:44 Albuterol Sulfate (Proventil MDI) 1 puff Q4H PRN INH Shortness of Breath 07/03/20 18:45 10/01/20 18:44 Albuterol/ Ipratropium (Albuterol/ Ipratropium) 3 ml Q4H PRN HHN Shortness of Breath 07/08/20 11:00 07/13/20 10:59 Amiodarone HCl (Cordarone) 400 mg EVERY 12 HOURS ORAL 07/05/20 21:00 10/03/20 20:59 07/09/20 20:29 Ceftriaxone Sodium 2 gm/ Dextrose 55 ml @ 110 mls/hr Q24H IVPB 07/08/20 21:00 07/22/20 23:59 07/09/20 20:29 Chlorhexidine Gluconate (Susan-Hex 2%) 1 applic DAILY@2000 TOPIC 07/04/20 20:00 10/02/20 19:59 07/09/20 20:28 Digoxin (Lanoxin) 0.125 mg DAILY ORAL 07/06/20 09:00 10/04/20 08:59 07/09/20 09:00 Duloxetine HCl (Cymbalta) 30 mg DAILY ORAL 07/04/20 09:00 10/02/20 08:59 07/09/20 08:43 Levothyroxine Sodium (Synthroid) 112 mcg DAILY@0630 ORAL 07/04/20 06:30 08/03/20 06:29 07/09/20 05:45 Magnesium Hydroxide (Mom) 30 ml DAILY ORAL 07/04/20 09:00 08/03/20 08:59 07/08/20 08:38 Memantine (Namenda) 5 mg DAILY ORAL 07/04/20 09:00 08/03/20 08:59 07/09/20 08:43 Midodrine (Pro-Amatine) 10 mg EVERY 8 HOURS ORAL 07/06/20 22:00 10/03/20 08:59 07/09/20 05:45 Mirtazapine (Remeron) 7.5 mg BEDTIME ORAL 07/05/20 21:00 10/01/20 20:59 07/09/20 20:30 Multivitamins (Multivitamins) 1 tab DAILY ORAL 07/04/20 09:00 08/03/20 08:59 07/09/20 08:43 Pantoprazole (Protonix) 40 mg DAILY ORAL 07/04/20 09:00 08/03/20 08:59 07/09/20 08:42 Pravastatin Sodium (Pravachol) 10 mg BEDTIME ORAL 07/03/20 21:00 08/02/20 20:59 07/09/20 20:30 Thiamine HCl (Vitamin B1) 100 mg DAILY ORAL 07/04/20 09:00 08/03/20 08:59 07/09/20 08:42 Zolpidem Tartrate (Ambien) 5 mg BEDTIME PRN ORAL Insomnia 07/03/20 18:45 07/16/20 18:44 Isma Schaffer M.D. Jul 09, 2020 20:50
[2020-07-10] VITALS: BP 142/55
[2020-07-10 04:00] VITALS: BP 154/56
[2020-07-10] MEDS: Midodrine 10mg tab ORAL SCH ×3 (05:46→20:56)
--- NOTE | 2020-07-10 07:25 | NUR ---
NURSE NOTES: Patient received from EMILIE Hughes. Patient is A/A/O x 1, confused. Upon handoff noticed left arm is swollen. Removed PIV access. on room air with no signs of acute respiratory distress noted. Patient appears to be calm and has no complaints as of the moment. Right femoral TLC patent and intact. On bilateral soft wrists restraints for potential removing devices. HOB elevated for aspiration precaution. Bed is in the lowest position and locked, call light within reach. siderails are upx3. Will continue to monitor.
--- NOTE | 2020-07-10 07:30 | NUR ---
NURSE HAND-OFF REPORT: Important Events on Shift:[] Patient Status: [Stable] Diet: [Soft diet, ground texture] Pending Orders: [] Pending Results/Labs:[] Pending MD notification:[] Latest Vital Signs: Temperature 97.4 , Pulse 61 , B/P 154 /56 , Respiratory Rate 18 , O2 SAT 96 , Room Air, O2 Flow Rate . Vital Sign Comment: [] EKG Rhythm: A-Paced Rhythm change?: N MD Notified?: - MD Response: Latest Parada Fall Score: 45 Fall Risk: High Risk Safety Measures: Call light Within Reach, Bed Alarm Zone 1, Side Rails Side Rails x2, Bed position Low and Locked. Fall Precautions: Yellow Socks Door Sign Report given to [TAYLOR Sexton].
[2020-07-10 08:00] VITALS: BP 143/54
[2020-07-10 08:10] LABS: BASOPHILS % (AUTO) 0.7 % (0.0-2.0); EOSINOPHILS % (AUTO) 7.8 % (0.0-3.0); HEMOGLOBIN 8.2 G/DL (12.0-16.0); LYMPHOCYTES % (AUTO) 25.6 % (20.0-45.0); MEAN CORPUSCULAR VOLUME 62 FL (80-99); MONOCYTES % (AUTO) 6.2 % (1.0-10.0); NEUTROPHILS % (AUTO) 59.7 % (45.0-75.0); PLATELET COUNT 179 K/UL (150-450); RED BLOOD COUNT 4.71 M/UL (4.20-5.40); RED CELL DISTRIBUTION WIDTH 17.6 % (11.6-14.8); WHITE BLOOD COUNT 6.7 K/UL (4.8-10.8)
[2020-07-10 08:19] LABS: ANION GAP 7 mmol/L (5-15); BLOOD UREA NITROGEN 10 mg/dL (7-18); CALCIUM 8.5 MG/DL (8.5-10.1); CARBON DIOXIDE 26 MMOL/L (21-32); CHLORIDE 113 MMOL/L (98-107); CREATININE 0.8 MG/DL (0.55-1.30); SODIUM 146 MMOL/L (136-145)
[2020-07-10] MEDS: DULoxetine 30mg cap ORAL SCH (08:30)
[2020-07-10] MEDS: Digoxin 0.125mg tab ORAL SCH (08:30)
[2020-07-10] MEDS: Memantine 10mg tab ORAL SCH (08:31)
[2020-07-10] MEDS: Amiodarone 200mg tab ORAL SCH (08:31)
[2020-07-10] MEDS: Milk of Magnesia 30ml Ud ORAL SCH (08:31)
[2020-07-10] MEDS: Thiamine 100mg tab ORAL SCH (08:31)
--- NOTE | 2020-07-10 09:04 | NUR ---
RD ASSESSMENT & RECOMMENDATIONS SEE CARE ACTIVITY FOR COMPLETE ASSESSMENT DAILY ESTIMATED NEEDS: Needs based on Sepsis 50kg abw 25-35 kcals/kg 2417-4605 total kcals 1-2 g protein/kg 50-100 g total protein 25-30ml/kcal mL/kg 9646-3045 total fluid mLs NUTRITION DIAGNOSIS: Altered nutrition related lab values rt/ clinical status as evidenced by episodes of hypoglycemia (70, 66), elevated Na/BUN/Creat, now wnl, elevated BNP(56042), hypotensive on pressors, now dc'ed. CURRENT DIET: Soft diet/ kosher, ms ground PO DIET RECOMMENDATIONS: Liberalized Regular diet/ kosher/ texture per LUMBER MOVER ADDITIONAL RECOMMENDATIONS: 1) maintain calibrated bed scale wt 2) LUMBER MOVER eval for appropriate texture 3) Add D5 with poor po, monitor for hypoglycemia -> Na consistently elevated as well 4) Continue Ensure TID w/ meals
--- NOTE | 2020-07-10 09:15 | General Progress Note ---
Subjective Constitutional: Reports: weakness HEENT: Reports: no symptoms Cardiovascular: Reports: no symptoms Respiratory: Reports: no symptoms Gastrointestinal/Abdominal: Reports: no symptoms Genitourinary: Reports: no symptoms Neurologic/Psychiatric: Reports: weakness Endocrine: Reports: no symptoms Hematologic/Lymphatic: Reports: no symptoms Allergies: Coded Allergies: No Known Allergies (Unverified , 07/03/20) Subjective No sob or chest pain. no nausea or vomiting. she is awake and afebrile. Objective Last 24 Hour Vital Signs Date Time Temp Pulse Resp B/P (MAP) Pulse Ox O2 Delivery O2 Flow Rate FiO2 07/10/20 08:30 60 07/10/20 08:00 96.9 60 22 143/54 (83) 95 07/10/20 04:00 97.4 67 18 154/56 (88) 96 07/10/20 04:00 Room Air 07/10/20 04:00 61 07/10/20 00:00 97.7 68 18 142/55 (84) 97 07/10/20 00:00 62 07/10/20 00:00 Room Air 07/09/20 20:00 60 07/09/20 20:00 98.0 60 18 142/58 (86) 96 07/09/20 20:00 Room Air 07/09/20 18:30 96.3 60 18 142/55 (84) 94 07/09/20 16:00 Room Air 07/09/20 16:00 81 07/09/20 16:00 98.1 60 18 146/59 (88) 99 07/09/20 12:00 60 07/09/20 12:00 97.9 63 20 145/64 (91) 100 07/09/20 12:00 Room Air Intake and Output 07/09/20 07/10/20 19:00 07:00 Intake Total 240 ml Output Total 600 ml Balance 240 ml -600 ml Intake Oral 240 ml Other 600 ml Laboratory Tests 07/10/20 07:00: White Blood Count 6.7, Red Blood Count 4.71, Hemoglobin 8.2L, Hematocrit 29.0L, Mean Corpuscular Volume 62L, Mean Corpuscular Hemoglobin 17.3L, Mean Corpuscular Hemoglobin Concent 28.1L, Red Cell Distribution Width 17.6H, Platelet Count 179, Mean Platelet Volume 7.5, Neutrophils (%) (Auto) 59.7, Lymphocytes (%) (Auto) 25.6, Monocytes (%) (Auto) 6.2, Eosinophils (%) (Auto) 7.8H, Basophils (%) (Auto) 0.7, Sodium Level 146H, Potassium Level 4.0, Chloride Level 113H, Carbon Dioxide Level 26, Anion Gap 7, Blood Urea Nitrogen 10, Creatinine 0.8, Estimat Glomerular Filtration Rate > 60, Glucose Level 100, Calcium Level 8.5 Height (Feet): 5 Height (Inches): 1.00 Weight (Pounds): 137 General Appearance: no apparent distress, alert EENT: normal ENT inspection Neck: non-tender, supple Cardiovascular: normal rate, regular rhythm Respiratory/Chest: lungs clear, normal breath sounds Abdomen: non tender, soft Extremities: non-tender Edema: no edema noted Leg (L), no edema noted Leg (R) Neurologic: alert, responsive Skin: warm/dry Assessment/Plan Status: stable Assessment/Plan: 1. Septic shock - resolved. doing better. In tele and off pressor. 2. Sepsis - cont IV rocephin for total of 2 wks. ID is following. 3. ARF - resolving. off IVF and cont IV antibiotic. 4. Elevated Troponin most likely due to sepsis and ARF 5. Thrombocytopenia - resolved. was not seen by dr Yeung. 6. Pneumonia - cont IV abx as above. 7. UTI - cont above antibiotic for total of 2 wks. 8. Pacemaker - senior ui ux developer is following. 9. Generalized weakness - will order PT eval today. D/C planning tomorrow to rehab. 10. Anemia - stable now. 11. Hyperlipidemia - cont home meds. 12. HX of HTN off meds due to septic shock. 13, Dementia - on namenda 5 mg daily. 14. Atrial fib - off Cardizem and on Amiodarone and digoxin per senior ui ux developer. will restart anticoagulation after discussing with senior ui ux developer b/c her platelet back to normal. Matthew Pak MD Jul 10, 2020 09:15
--- NOTE | 2020-07-10 10:00 | NUR ---
NURSE NOTES: SPOKE WITH TIFFANI MONTALVO THIS AM. NOT ABLE TO EVALUATE PATIENT TODAY DUE TO SHORT STAFFING ON THEIR DEPT. WILL CONT TO MONITOR.
[2020-07-10 11:50] VITALS: BP 140/64
--- NOTE | 2020-07-10 12:43 | Cardiac Electrophysiology PN ---
Assessment/Plan Assessment/Plan 1. Elevated troponin of 0.08 and 0.144. It could be due to demand ischemia in this patient who also has renal failure with creatinine of 2.6. and severe anemia with hemoglobin of 6.9. Off aspirin or Plavix in view of platelet count of only 28. Cannot give beta-lopez due to hypotension. 2. S/P Septic shock on IV fluid and antibiotic 3. S/P [employer] pacemaker on 07/03/2018 with Nl Fx 4. Atrial fib with RVR. Now off Cardizem drip. Continue Dig 0.125 po daily and decrease Amiodarone to 400 po daily Off anticoagulation as Platelet was in 20s . Dig level 0.6 5. Dementia. 6. Hyperlipidemia, on Pravachol. 7. Hypothyroidism, on Synthroid. DW RN Subjective Subjective No more atrial fib. Atrially paced. Off pressors. No CP or SOB. DC planning tomorrow to SN Objective Last 24 Hour Vital Signs Date Time Temp Pulse Resp B/P (MAP) Pulse Ox O2 Delivery O2 Flow Rate FiO2 07/10/20 11:50 98.3 80 19 140/64 (89) 94 07/10/20 08:30 60 07/10/20 08:00 96.9 60 22 143/54 (83) 95 07/10/20 08:00 60 07/10/20 08:00 Room Air 07/10/20 04:00 97.4 67 18 154/56 (88) 96 07/10/20 04:00 Room Air 07/10/20 04:00 61 07/10/20 00:00 97.7 68 18 142/55 (84) 97 07/10/20 00:00 62 07/10/20 00:00 Room Air 07/09/20 20:00 60 07/09/20 20:00 98.0 60 18 142/58 (86) 96 07/09/20 20:00 Room Air 07/09/20 18:30 96.3 60 18 142/55 (84) 94 07/09/20 16:00 Room Air 07/09/20 16:00 81 07/09/20 16:00 98.1 60 18 146/59 (88) 99 Intake and Output 07/09/20 07/10/20 19:00 07:00 Intake Total 240 ml Output Total 600 ml Balance 240 ml -600 ml Intake Oral 240 ml Other 600 ml Laboratory Tests Test 07/10/20 07:00 White Blood Count 6.7 K/UL (4.8-10.8) Red Blood Count 4.71 M/UL (4.20-5.40) Hemoglobin 8.2 G/DL (12.0-16.0) L Hematocrit 29.0 % (37.0-47.0) L Mean Corpuscular Volume 62 FL (80-99) L Mean Corpuscular Hemoglobin 17.3 PG (27.0-31.0) L Mean Corpuscular Hemoglobin Concent 28.1 G/DL (32.0-36.0) L Red Cell Distribution Width 17.6 % (11.6-14.8) H Platelet Count 179 K/UL (150-450) Mean Platelet Volume 7.5 FL (6.5-10.1) Neutrophils (%) (Auto) 59.7 % (45.0-75.0) Lymphocytes (%) (Auto) 25.6 % (20.0-45.0) Monocytes (%) (Auto) 6.2 % (1.0-10.0) Eosinophils (%) (Auto) 7.8 % (0.0-3.0) H Basophils (%) (Auto) 0.7 % (0.0-2.0) Sodium Level 146 MMOL/L (136-145) H Potassium Level 4.0 MMOL/L (3.5-5.1) Chloride Level 113 MMOL/L (98-107) H Carbon Dioxide Level 26 MMOL/L (21-32) Anion Gap 7 mmol/L (5-15) Blood Urea Nitrogen 10 mg/dL (7-18) Creatinine 0.8 MG/DL (0.55-1.30) Estimat Glomerular Filtration Rate > 60 mL/min (>60) Glucose Level 100 MG/DL (74-106) Calcium Level 8.5 MG/DL (8.5-10.1) Objective HEAD AND NECK: Showed no JVD. LUNGS: Clear. CARDIOVASCULAR: Irregular S1 and S2 with no gallop or murmur. Pacer left subclavian ABDOMEN: Soft. EXTREMITIES: No pitting edema. Jorge Abbott MD Jul 10, 2020 12:43
--- NOTE | 2020-07-10 13:12 | NUR ---
CASE MANAGEMENT:REVIEW 07/10/20 SI: E COLI SEPSIS. PNA. UTI. AFIB. TROPONIN LEAK 98.3 80 19 140/64 94% ON RA H/H-8.2/29.0 IS: IV ROCEPHIN Q24 MIDODRINE PO Q8HRS DIGOXIN PO QD AMIODARONE PO Q12 REMERON PO QHS CYMBALTA PO QD SYNTHROID PO QD : FROM ICU TO STEP DOWN UNIT DCP: FROM [facility] CARE PLAN: PT [facility]
[2020-07-10 16:00] VITALS: BP 153/55
--- NOTE | 2020-07-10 18:14 | NUR ---
NURSE NOTES: SPOKE WITH THE DAUGHTERKINGSLEY. DAUGHTER INSISTING FOR STAFF TO REMOVE BILATERAL WRISTS RESTRAINTS. I HAD TO EXPLAINED TO THE DAUGHTER THE INDICATIONS. ASSESSED MENTATION FOR THE READINESS TO REMOVE RESTRAINTS. PATIENT IS NOT READY AND PATIENT ATTEMPTED TO GET OUT OF BED AND PATIENT CAN ONLY IDENTIFIES SELF. PATIENT CAN POTENTIALLY REMOVE TLC. INFORMED STEFFEN REBOLLEDO. WILL CONT TO PATRICIA.
--- NOTE | 2020-07-10 19:15 | NUR ---
NURSE HAND-OFF REPORT: Important Events on Shift:[on bilateral soft wrists restraints; assessed circulation and mentation for readiness] Patient Status: [stable] Diet: [mech soft ground] Pending Orders: [labs] Pending Results/Labs:[in am] Pending MD notification:[] Latest Vital Signs: Temperature 98.8 , Pulse 61 , B/P 153 /55 , Respiratory Rate 20 , O2 SAT 98 , Room Air, O2 Flow Rate . Vital Sign Comment: [] EKG Rhythm: A-Paced Rhythm change?: N MD Notified?: - MD Response: Latest Parada Fall Score: 45 Fall Risk: High Risk Safety Measures: Call light Within Reach, Bed Alarm Zone 2, Side Rails Side Rails x3, Bed position Low and Locked. Fall Precautions: Yellow Socks Door Sign Report given to [alexia].
--- NOTE | 2020-07-10 19:16 | NUR ---
NURSE NOTES: Important Events on Shift: Received report from Carlie Garcia LVN. Pt in bed, agitated, confused, and attempting to remove PIV and R femoral TLC. TLC dressing soiled with bright red blood and only partially intact. Dressing changed using sterile techniques, tolerated well by pt. Pt has B soft wrist restraints per MD order rt removing devices. Restraints removed by pt. Restraints reapplied by this nurse. Bed alarm changed to zone 2. Patient Status: Full code Diet: mech ground soft, crush pills Pending Orders: none Pending Results/Labs: none Pending MD notification:none Latest Vital Signs: Temperature 98.8 , Pulse 61 , B/P 153 /55 , Respiratory Rate 20 , O2 SAT 98 , Room Air, O2 Flow Rate . Vital Sign Comment: stable EKG Rhythm: A-paced w/ 1AVB Rhythm change?: N MD Notified?: - MD Response: - Latest Parada Fall Score: 45 Fall Risk: High Risk Safety Measures: Call light Within Reach, Bed Alarm Zone 2, Side Rails Side Rails x3, Bed position, Low and Locked. Fall Precautions: Yellow Socks, Door Sign
[2020-07-10 20:00] VITALS: BP 144/56
[2020-07-10] MEDS: Dyna-Hex 2% Top Sol 2oz TOPIC SCH (20:53)
[2020-07-10] MEDS: cefTRIAXone 2 GM in D5W 55 ML IVPB SCH (20:54)
[2020-07-10] MEDS: Zolpidem 5mg tab ORAL PRN (22:24)
[2020-07-11] VITALS: BP 130/60
[2020-07-11 04:00] VITALS: BP 152/53
[2020-07-11] MEDS: Midodrine 10mg tab ORAL SCH ×4 (06:31→21:21)
--- NOTE | 2020-07-11 06:59 | NUR ---
NURSE HAND-OFF REPORT: Important Events on Shift: Pt is confused, high fall risk; continues to try to remove devices, get out of bed. Pt to continue with B soft wrist restraints. Pt VS stable throughout shift. Endorsed plan of care and close monitoring. Patient Status: full code Diet: mech soft ground, crush pills Pending Orders: none Pending Results/Labs:AM labs Pending MD notification: none Latest Vital Signs: Temperature 98.0 , Pulse 60 , B/P 152 /53 , Respiratory Rate 18 , O2 SAT 96 , Room Air, O2 Flow Rate . Vital Sign Comment: stable throughout shift EKG Rhythm: A-Paced Rhythm change?: N MD Notified?: - MD Response: Latest Parada Fall Score: 45 Fall Risk: High Risk Safety Measures: Call light Within Reach, Bed Alarm Zone 2, Side Rails Side Rails x3, Bed position Low and Locked. Fall Precautions: Yellow Socks, Door Sign, Pt education, Yellow gown Report given to Carlie Garcia LVN.
--- NOTE | 2020-07-11 07:07 | NUR ---
NURSE NOTES: Patient received from EMILIE Carpenter. Patient is A/A/O x 1, confused. asleep and arousable. on room air with no signs of acute respiratory distress noted. Patient appears to be calm and has no complaints as of the moment. Right femoral TLC patent and intact. On bilateral soft wrists restraints for potential removing devices. HOB elevated for aspiration precaution. Bed is in the lowest position and locked, call light within reach. siderails are upx3. Will continue to monitor.
[2020-07-11 08:00] VITALS: BP 149/58
[2020-07-11] MEDS: Milk of Magnesia 30ml Ud ORAL SCH (08:13)
[2020-07-11 08:17] LABS: EOSINOPHILS % (AUTO) 7.2 % (0.0-3.0); HEMATOCRIT 29.9 % (37.0-47.0); HEMOGLOBIN 8.4 G/DL (12.0-16.0); LYMPHOCYTES % (AUTO) 28.3 % (20.0-45.0); MEAN CORPUSCULAR VOLUME 63 FL (80-99); MONOCYTES % (AUTO) 4.9 % (1.0-10.0); NEUTROPHILS % (AUTO) 58.7 % (45.0-75.0); PLATELET COUNT 212 K/UL (150-450); RED BLOOD COUNT 4.78 M/UL (4.20-5.40); RED CELL DISTRIBUTION WIDTH 18.3 % (11.6-14.8); WHITE BLOOD COUNT 6.2 K/UL (4.8-10.8)
[2020-07-11 08:35] LABS: CALCIUM 8.5 MG/DL (8.5-10.1); CREATININE 0.9 MG/DL (0.55-1.30); POTASSIUM 3.8 MMOL/L (3.5-5.1)
[2020-07-11] MEDS: DULoxetine 30mg cap ORAL SCH (08:36)
[2020-07-11] MEDS: Digoxin 0.125mg tab ORAL SCH (08:36)
[2020-07-11] MEDS: Thiamine 100mg tab ORAL SCH (08:36)
[2020-07-11] MEDS: Memantine 10mg tab ORAL SCH (08:36)
[2020-07-11] MEDS: Amiodarone 200mg tab ORAL SCH (08:41)
[2020-07-11] MEDS ORDERED: Tubing IV Secondary IV ONE (10:13)
[2020-07-11] MEDS ORDERED: NS 275ml ONE (10:13)
[2020-07-11 11:58] VITALS: BP 144/55
--- NOTE | 2020-07-11 12:21 | General Progress Note ---
Subjective Date patient seen: Jul 11, 2020 Time patient seen: 12:00 Constitutional: Reports: weakness HEENT: Reports: no symptoms Cardiovascular: Reports: no symptoms Respiratory: Reports: no symptoms Gastrointestinal/Abdominal: Reports: no symptoms Genitourinary: Reports: no symptoms Neurologic/Psychiatric: Reports: weakness Hematologic/Lymphatic: Reports: anemia Allergies: Coded Allergies: No Known Allergies (Unverified , 07/03/20) Subjective No sob or chest pain. no nausea or vomiting. she is awake and afebrile. She was not able to stand with Physical therapy yesterday. Objective Last 24 Hour Vital Signs Date Time Temp Pulse Resp B/P (MAP) Pulse Ox O2 Delivery O2 Flow Rate FiO2 07/11/20 11:58 97.7 60 19 144/55 (84) 94 07/11/20 09:00 Room Air 07/11/20 08:36 63 07/11/20 08:00 98.0 63 18 149/58 (88) 95 07/11/20 08:00 52 07/11/20 04:00 98.0 62 18 152/53 (86) 96 07/11/20 04:00 60 07/11/20 00:00 60 07/11/20 00:00 98.6 64 18 130/60 (83) 98 07/10/20 20:00 98.8 60 18 144/56 (85) 97 07/10/20 20:00 Room Air 07/10/20 20:00 61 07/10/20 16:00 Room Air 07/10/20 16:00 98.8 61 20 153/55 (87) 98 Intake and Output 07/10/20 07/11/20 19:00 07:00 Intake Total 360 ml Output Total 600 ml Balance 360 ml -600 ml Intake Oral 360 ml Other 600 ml # Voids 2 Laboratory Tests 07/11/20 07:12: White Blood Count 6.2, Red Blood Count 4.78, Hemoglobin 8.4L, Hematocrit 29.9L, Mean Corpuscular Volume 63L, Mean Corpuscular Hemoglobin 17.7L, Mean Corpuscular Hemoglobin Concent 28.3L, Red Cell Distribution Width 18.3H, Platelet Count 212, Mean Platelet Volume 7.6, Neutrophils (%) (Auto) 58.7, Lymphocytes (%) (Auto) 28.3, Monocytes (%) (Auto) 4.9, Eosinophils (%) (Auto) 7.2H, Basophils (%) (Auto) 1.0, Sodium Level 146H, Potassium Level 3.8, Chloride Level 111H, Carbon Dioxide Level 31, Anion Gap 4L, Blood Urea Nitrogen 11, Creatinine 0.9, Estimat Glomerular Filtration Rate 59.2, Glucose Level 74, Calcium Level 8.5 Height (Feet): 5 Height (Inches): 1.00 Weight (Pounds): 137 General Appearance: no apparent distress, alert EENT: normal ENT inspection Neck: non-tender, supple Cardiovascular: normal rate, regular rhythm Respiratory/Chest: lungs clear, normal breath sounds Abdomen: non tender, soft Extremities: non-tender Edema: no edema noted Leg (L), no edema noted Leg (R) Neurologic: alert, responsive Skin: warm/dry Assessment/Plan Status: stable Assessment/Plan: 1. Septic shock - resolved. doing better. In tele and off pressor. 2. Sepsis - cont IV rocephin for total of 2 wks. ID is following. 3. ARF - resolving. off IVF and cont IV antibiotic. 4. Elevated Troponin most likely due to sepsis and ARF 5. Thrombocytopenia - resolved. was not seen by dr Yeung. 6. Pneumonia - cont IV abx as above. 7. UTI - cont above antibiotic for total of 2 wks. 8. Pacemaker - hemstitching machine operator is following. 9. Generalized weakness - will order PT eval today. D/C planning tomorrow to rehab. 10. Anemia - stable now. 11. Hyperlipidemia - cont home meds. 12. HX of HTN off meds due to septic shock. 13, Dementia - on namenda 5 mg daily. 14. Atrial fib - off Cardizem and on Amiodarone and digoxin per hemstitching machine operator. will start ASA 81 mg po daily and due to high risk of fall, will not start any other anticoagulation at this time. discussed with hemstitching machine operator as well. Matthew Pak MD Jul 11, 2020 12:21
[2020-07-11] MEDS ORDERED: Digoxin ORAL (12:44)
[2020-07-11] MEDS ORDERED: MIRTAZAPINE15 M3 ORAL (12:44)
[2020-07-11] MEDS ORDERED: PRAVACHOL20 MG ORAL (12:44)
[2020-07-11] MEDS ORDERED: NAMENDA10 MG ORAL (12:44)
[2020-07-11] MEDS ORDERED: DUONEB 0.5-3(2.53 ML HHN (12:44)
[2020-07-11] MEDS ORDERED: MULTIVITAMINS1 EAC2 ORAL (12:44)
[2020-07-11] MEDS ORDERED: VITAMIN B-1100 M2 ORAL (12:44)
[2020-07-11] MEDS ORDERED: CEFTRIAXON1 GM/50 ML IV (12:44)
[2020-07-11] MEDS ORDERED: PRO-AMATINE10 MG ORAL (12:44)
[2020-07-11] MEDS ORDERED: CYMBALTA30 MG ORAL (12:44)
[2020-07-11] MEDS ORDERED: ASPIRIN EC81 MG ORAL (12:44)
[2020-07-11] MEDS ORDERED: MOM30 ML ORAL (12:44)
[2020-07-11] MEDS ORDERED: PANTOPRAZOLE SO40 MG ORAL (12:44)
[2020-07-11] MEDS ORDERED: AMBIEN5 MG ORAL (12:44)
[2020-07-11] MEDS ORDERED: PACERONE200 MG ORAL (12:44)
[2020-07-11] MEDS ORDERED: SYNTHROID112 MCG ORAL (12:44)
[2020-07-11] MEDS ORDERED: ALBUTEROL SULF8.5 G1 INH (12:44)
[2020-07-11] MEDS ORDERED: ACETAMINOPHEN325 M1 ORAL (12:44)
[2020-07-11] MEDS: Albuterol/Ipratropium 3ml neb HHN PRN (13:11)
[2020-07-11] MEDS: Aspirin EC 81mg tab ORAL SCH (13:57)
--- NOTE | 2020-07-11 14:25 | NUR ---
NURSE NOTES: CALLED DR BARRIOS RE; UPDATE D/C ORDER. CALLED [facility] AND SPOKE WITH HESHAM, ADMISSION. PER HESHAM PATIENT MEDICAL INSURANCE IS NOT BEING APPROVE @ THIS MOMENT. THOUGH PATIENT IS CLINICALLY ACCEPTED. CONVEYED TO PMD AWAITING FOR CALLBACK. WILL CONT TO MONITOR.
[2020-07-11 16:00] VITALS: BP 131/59
--- NOTE | 2020-07-11 16:08 | Cardiac Electrophysiology PN ---
Assessment/Plan Assessment/Plan 1. Elevated troponin of 0.08 and 0.144. It could be due to demand ischemia in this patient who also has renal failure with creatinine of 2.6. and severe anemia with hemoglobin of 6.9. Off aspirin or Plavix in view of platelet count of only 28. Cannot give beta-lopez due to hypotension. 2. S/P Septic shock resolved 3. S/P [employer] pacemaker on 07/03/2018 with Nl Fx 4. Atrial fib with RVR. Continue Dig 0.125 po daily and Amiodarone 400 po daily Off anticoagulation as Platelet was in 20s . Dig level 0.6 5. Dementia. 6. Hyperlipidemia, on Pravachol. 7. Hypothyroidism, on Synthroid. DW RN Subjective Subjective No more atrial fib. Atrially paced. In restraints as was pulling the RFV triple lumen catheter No CP or SOB. DC planning to SNIF Objective Last 24 Hour Vital Signs Date Time Temp Pulse Resp B/P (MAP) Pulse Ox O2 Delivery O2 Flow Rate FiO2 07/11/20 12:00 60 07/11/20 11:58 97.7 60 19 144/55 (84) 94 07/11/20 09:00 Room Air 07/11/20 08:36 63 07/11/20 08:00 98.0 63 18 149/58 (88) 95 07/11/20 08:00 52 07/11/20 04:00 98.0 62 18 152/53 (86) 96 07/11/20 04:00 60 07/11/20 00:00 60 07/11/20 00:00 98.6 64 18 130/60 (83) 98 07/10/20 20:00 98.8 60 18 144/56 (85) 97 07/10/20 20:00 Room Air 07/10/20 20:00 61 Intake and Output 07/10/20 07/11/20 19:00 07:00 Intake Total 360 ml Output Total 600 ml Balance 360 ml -600 ml Intake Oral 360 ml Other 600 ml # Voids 2 Laboratory Tests Test 07/11/20 07:12 White Blood Count 6.2 K/UL (4.8-10.8) Red Blood Count 4.78 M/UL (4.20-5.40) Hemoglobin 8.4 G/DL (12.0-16.0) L Hematocrit 29.9 % (37.0-47.0) L Mean Corpuscular Volume 63 FL (80-99) L Mean Corpuscular Hemoglobin 17.7 PG (27.0-31.0) L Mean Corpuscular Hemoglobin Concent 28.3 G/DL (32.0-36.0) L Red Cell Distribution Width 18.3 % (11.6-14.8) H Platelet Count 212 K/UL (150-450) Mean Platelet Volume 7.6 FL (6.5-10.1) Neutrophils (%) (Auto) 58.7 % (45.0-75.0) Lymphocytes (%) (Auto) 28.3 % (20.0-45.0) Monocytes (%) (Auto) 4.9 % (1.0-10.0) Eosinophils (%) (Auto) 7.2 % (0.0-3.0) H Basophils (%) (Auto) 1.0 % (0.0-2.0) Sodium Level 146 MMOL/L (136-145) H Potassium Level 3.8 MMOL/L (3.5-5.1) Chloride Level 111 MMOL/L (98-107) H Carbon Dioxide Level 31 MMOL/L (21-32) Anion Gap 4 mmol/L (5-15) L Blood Urea Nitrogen 11 mg/dL (7-18) Creatinine 0.9 MG/DL (0.55-1.30) Estimat Glomerular Filtration Rate 59.2 mL/min (>60) Glucose Level 74 MG/DL (74-106) Calcium Level 8.5 MG/DL (8.5-10.1) Microbiology Date/Time Source Procedure Growth Status 07/08/20 21:00 Blood Blood Culture - Preliminary NO GROWTH AFTER 48 HOURS Resulted 07/08/20 20:45 Blood Blood Culture - Preliminary NO GROWTH AFTER 48 HOURS Resulted Objective HEAD AND NECK: Showed no JVD. LUNGS: Clear. CARDIOVASCULAR: Irregular S1 and S2 with no gallop or murmur. Pacer left subclavian ABDOMEN: Soft. EXTREMITIES: No pitting edema. Jorge Abbott MD Jul 11, 2020 16:08
--- NOTE | 2020-07-11 16:27 | NUR ---
PT Note PT juarez completed, treatment initiated. Patient can benefit from PT to increase her muscle strength and balance to improve her functional mobility. Addendum: 07/11/20 at 1628 by KEL FLANAGAN PT Amended: Links added.
--- NOTE | 2020-07-11 17:11 | Cardiac Electrophysiology PN ---
Assessment/Plan Assessment/Plan 1. Elevated troponin of 0.08 and 0.144. It could be due to demand ischemia in this patient who also has renal failure with creatinine of 2.6. and severe anemia with hemoglobin of 6.9. Off aspirin or Plavix in view of platelet count of only 28. Start Lopressor 12.5 bid now that BP is better 2. S/P Septic shock resolved. Decrease Midodrine to 5 tid 3. S/P [employer] pacemaker on 07/03/2018 with Nl Fx 4. Atrial fib with RVR. Continue Dig 0.125 po daily and Amiodarone 400 po daily Add Lopressor 12.5 bid Off anticoagulation as Platelet was in 20s . Dig level 0.6 5. Dementia. 6. Hyperlipidemia, on Pravachol. 7. Hypothyroidism, on Synthroid. RIN RN Subjective Subjective No more atrial fib. Atrially paced. In restraints as was pulling the RFV triple lumen catheter No CP or SOB. DC planning to SNIF BP better. Objective Last 24 Hour Vital Signs Date Time Temp Pulse Resp B/P (MAP) Pulse Ox O2 Delivery O2 Flow Rate FiO2 07/11/20 16:00 98.0 63 18 131/59 (83) 95 07/11/20 16:00 60 07/11/20 12:00 60 07/11/20 11:58 97.7 60 19 144/55 (84) 94 07/11/20 09:00 Room Air 07/11/20 08:36 63 07/11/20 08:00 98.0 63 18 149/58 (88) 95 07/11/20 08:00 52 07/11/20 04:00 98.0 62 18 152/53 (86) 96 07/11/20 04:00 60 07/11/20 00:00 60 07/11/20 00:00 98.6 64 18 130/60 (83) 98 07/10/20 20:00 98.8 60 18 144/56 (85) 97 07/10/20 20:00 Room Air 07/10/20 20:00 61 Intake and Output 07/10/20 07/11/20 19:00 07:00 Intake Total 360 ml Output Total 600 ml Balance 360 ml -600 ml Intake Oral 360 ml Other 600 ml # Voids 2 Laboratory Tests Test 07/11/20 07:12 White Blood Count 6.2 K/UL (4.8-10.8) Red Blood Count 4.78 M/UL (4.20-5.40) Hemoglobin 8.4 G/DL (12.0-16.0) L Hematocrit 29.9 % (37.0-47.0) L Mean Corpuscular Volume 63 FL (80-99) L Mean Corpuscular Hemoglobin 17.7 PG (27.0-31.0) L Mean Corpuscular Hemoglobin Concent 28.3 G/DL (32.0-36.0) L Red Cell Distribution Width 18.3 % (11.6-14.8) H Platelet Count 212 K/UL (150-450) Mean Platelet Volume 7.6 FL (6.5-10.1) Neutrophils (%) (Auto) 58.7 % (45.0-75.0) Lymphocytes (%) (Auto) 28.3 % (20.0-45.0) Monocytes (%) (Auto) 4.9 % (1.0-10.0) Eosinophils (%) (Auto) 7.2 % (0.0-3.0) H Basophils (%) (Auto) 1.0 % (0.0-2.0) Sodium Level 146 MMOL/L (136-145) H Potassium Level 3.8 MMOL/L (3.5-5.1) Chloride Level 111 MMOL/L (98-107) H Carbon Dioxide Level 31 MMOL/L (21-32) Anion Gap 4 mmol/L (5-15) L Blood Urea Nitrogen 11 mg/dL (7-18) Creatinine 0.9 MG/DL (0.55-1.30) Estimat Glomerular Filtration Rate 59.2 mL/min (>60) Glucose Level 74 MG/DL (74-106) Calcium Level 8.5 MG/DL (8.5-10.1) Microbiology Date/Time Source Procedure Growth Status 07/08/20 21:00 Blood Blood Culture - Preliminary NO GROWTH AFTER 48 HOURS Resulted 07/08/20 20:45 Blood Blood Culture - Preliminary NO GROWTH AFTER 48 HOURS Resulted Objective HEAD AND NECK: Showed no JVD. LUNGS: Clear. CARDIOVASCULAR: Irregular S1 and S2 with no gallop or murmur. Pacer left subclavian ABDOMEN: Soft. EXTREMITIES: No pitting edema. Jorge Abbott MD Jul 11, 2020 17:11
--- NOTE | 2020-07-11 19:00 | NUR ---
NURSE NOTES: Received report from TAYLOR Sexton. AAO2, able to verbalize needs. On room air, saturating well. No peripheral IV access. TLC on right femoral flushed and patent. On bilateral soft wrist restraints; skin, ROM, and sensation WNL. Bed in lowest position, brakes engaged and bed alarm on. Call light placed within reach. Will continue to monitor.
--- NOTE | 2020-07-11 19:08 | NUR ---
NURSE HAND-OFF REPORT: Important Events on Shift:[safety measures rendered. not ready for discharge due to insurance authorization is concerned from [facility]. ] Patient Status: [FC] Diet: [mech soft ground] Pending Orders: [discharge] Pending Results/Labs:[] Pending MD notification:[] Latest Vital Signs: Temperature 98.0 , Pulse 60 , B/P 131 /59 , Respiratory Rate 18 , O2 SAT 95 , Room Air, O2 Flow Rate . Vital Sign Comment: [] EKG Rhythm: A-Paced Rhythm change?: N MD Notified?: - MD Response: Latest Parada Fall Score: 45 Fall Risk: High Risk Safety Measures: Call light Within Reach, Bed Alarm Zone 2, Side Rails Side Rails x3, Bed position Low and Locked. Fall Precautions: Yellow Socks Door Sign Report given to [Amanda].
[2020-07-11 20:00] VITALS: BP 140/50
[2020-07-11] MEDS: Dyna-Hex 2% Top Sol 2oz TOPIC SCH (20:00)
--- NOTE | 2020-07-11 21:03 | Infectious Diseases Prog Note ---
Assessment/Plan Problems: (1) Acute pyelonephritis Assessment & Plan: due to E.coli and Proteus Mirabilis , complicated with sepsis and shock due to E coli , will switch meropenem to ceftriaxone to complete two weeks course of treatment , and repeat blood culture x 2 to confirm clearance (2) Bilateral pneumonia Assessment & Plan: With interstitial infiltrations on chest x-ray, now on ceftriaxone to cover for bacteremia for two weeks , monitor chest x-ray, aspiration precaution. Patient was tested recently for COVID 19 with PCR test couple of days ago and it was negative as per the primary (3) Septic shock Assessment & Plan: due to the above with E coli , source most likely urine infection and pyelonephritis, will switch meropenem empirically to ceftriaxone to treat for two weeks (4) Acute renal failure Assessment & Plan: Suspect due to dehydration continue fluids, avoid nephrotoxic's, close monitor of renal function, nephrology follow up is recommended (5) Dehydration Assessment & Plan: Continue IV fluids for hydration and monitor electrolytes (6) Generalized weakness Assessment & Plan: Supportive care, PT OT eval Subjective Constitutional: Reports: no symptoms HEENT: Reports: no symptoms Respiratory: Reports: no symptoms Breasts: Reports: no symptoms Cardiovascular: Reports: no symptoms Gastrointestinal/Abdominal: Reports: no symptoms Genitourinary: Reports: no symptoms Neurologic: Reports: no symptoms Psychiatric: Reports: no symptoms Skin: Reports: no symptoms Endocrine: Reports: no symptoms Hematologic: Reports: no symptoms Musculoskeletal: Reports: no symptoms Allergies: Coded Allergies: No Known Allergies (Unverified , 07/03/20) late entry note for 07/10/20 she was afebrile , resting in bed, had no cough or SOB, no diarrhea Objective Last 24 Hour Vital Signs Date Time Temp Pulse Resp B/P (MAP) Pulse Ox O2 Delivery O2 Flow Rate FiO2 07/11/20 16:00 98.0 63 18 131/59 (83) 95 07/11/20 16:00 60 07/11/20 13:21 65 18 96 Room Air 21 63 18 95 07/11/20 12:00 60 07/11/20 11:58 97.7 60 19 144/55 (84) 94 07/11/20 09:00 Room Air 07/11/20 08:36 63 07/11/20 08:00 98.0 63 18 149/58 (88) 95 07/11/20 08:00 52 07/11/20 04:00 98.0 62 18 152/53 (86) 96 07/11/20 04:00 60 07/11/20 00:00 60 07/11/20 00:00 98.6 64 18 130/60 (83) 98 Height (Feet): 5 Height (Inches): 1.00 Weight (Pounds): 137 General Appearance: WD/WN, no acute distress HEENT: normocephalic, atraumatic, anicteric, mucous membranes moist, PERRL Respiratory/Chest: chest wall non-tender, lungs clear, normal breath sounds, no respiratory distress, no accessory muscle use Cardiovascular: normal peripheral pulses, normal rate, regular rhythm, no gallop/murmur, no JVD Abdomen: normal bowel sounds, soft, non tender, no organomegaly, non distended, no mass, no scars Genitourinary: normal external genitalia Extremities: no cyanosis, no clubbing Skin: no rash, no lesions Neurologic/Psychiatric: no motor/sensory deficits, alert, responsive Lymphatic: no neck adenopathy, no groin adenopathy Musculoskeletal: normal muscle bulk, no effusion Laboratory Tests Test 07/11/20 07:12 White Blood Count 6.2 K/UL (4.8-10.8) Red Blood Count 4.78 M/UL (4.20-5.40) Hemoglobin 8.4 G/DL (12.0-16.0) L Hematocrit 29.9 % (37.0-47.0) L Mean Corpuscular Volume 63 FL (80-99) L Mean Corpuscular Hemoglobin 17.7 PG (27.0-31.0) L Mean Corpuscular Hemoglobin Concent 28.3 G/DL (32.0-36.0) L Red Cell Distribution Width 18.3 % (11.6-14.8) H Platelet Count 212 K/UL (150-450) Mean Platelet Volume 7.6 FL (6.5-10.1) Neutrophils (%) (Auto) 58.7 % (45.0-75.0) Lymphocytes (%) (Auto) 28.3 % (20.0-45.0) Monocytes (%) (Auto) 4.9 % (1.0-10.0) Eosinophils (%) (Auto) 7.2 % (0.0-3.0) H Basophils (%) (Auto) 1.0 % (0.0-2.0) Sodium Level 146 MMOL/L (136-145) H Potassium Level 3.8 MMOL/L (3.5-5.1) Chloride Level 111 MMOL/L (98-107) H Carbon Dioxide Level 31 MMOL/L (21-32) Anion Gap 4 mmol/L (5-15) L Blood Urea Nitrogen 11 mg/dL (7-18) Creatinine 0.9 MG/DL (0.55-1.30) Estimat Glomerular Filtration Rate 59.2 mL/min (>60) Glucose Level 74 MG/DL (74-106) Calcium Level 8.5 MG/DL (8.5-10.1) Current Medications Medications (Trade) Dose Ordered Sig/Kallie Route PRN Reason Start Time Stop Time Status Last Admin Dose Admin Acetaminophen (Tylenol) 650 mg Q4H PRN ORAL Temp >100.5 07/03/20 18:30 08/02/20 18:29 07/04/20 11:45 Acetaminophen (Tylenol) 650 mg Q4H PRN ORAL pain 07/03/20 18:45 08/02/20 18:44 Albuterol Sulfate (Proventil MDI) 1 puff Q4H PRN INH Shortness of Breath 07/03/20 18:45 10/01/20 18:44 Albuterol/ Ipratropium (Albuterol/ Ipratropium) 3 ml Q4H PRN HHN Shortness of Breath 07/08/20 11:00 07/13/20 10:59 07/11/20 13:11 Amiodarone HCl (Cordarone) 400 mg DAILY ORAL 07/11/20 09:00 10/09/20 08:59 07/11/20 08:41 Aspirin (Ecotrin) 81 mg DAILY ORAL 07/11/20 12:30 08/25/20 12:29 07/11/20 13:57 Ceftriaxone Sodium 2 gm/ Dextrose 55 ml @ 110 mls/hr Q24H IVPB 07/08/20 21:00 07/22/20 23:59 07/10/20 20:54 Chlorhexidine Gluconate (Susan-Hex 2%) 1 applic DAILY@2000 TOPIC 07/04/20 20:00 10/02/20 19:59 07/11/20 20:00 Digoxin (Lanoxin) 0.125 mg DAILY ORAL 07/06/20 09:00 10/04/20 08:59 07/11/20 08:36 Duloxetine HCl (Cymbalta) 30 mg DAILY ORAL 07/04/20 09:00 10/02/20 08:59 07/11/20 08:36 Levothyroxine Sodium (Synthroid) 112 mcg DAILY@0630 ORAL 07/04/20 06:30 08/03/20 06:29 07/11/20 06:31 Magnesium Hydroxide (Mom) 30 ml DAILY ORAL 07/04/20 09:00 08/03/20 08:59 07/10/20 08:31 Memantine (Namenda) 5 mg DAILY ORAL 07/04/20 09:00 08/03/20 08:59 07/11/20 08:36 Metoprolol Tartrate (Lopressor) 12.5 mg Q12HR ORAL 07/11/20 21:00 10/09/20 20:59 Midodrine (Pro-Amatine) 5 mg EVERY 8 HOURS ORAL 07/11/20 18:00 10/03/20 17:59 07/11/20 17:46 Mirtazapine (Remeron) 7.5 mg BEDTIME ORAL 07/05/20 21:00 10/01/20 20:59 07/10/20 20:54 Multivitamins (Multivitamins) 1 tab DAILY ORAL 07/04/20 09:00 08/03/20 08:59 07/11/20 08:36 Pantoprazole (Protonix) 40 mg DAILY ORAL 07/04/20 09:00 08/03/20 08:59 07/11/20 08:36 Pravastatin Sodium (Pravachol) 10 mg BEDTIME ORAL 07/03/20 21:00 08/02/20 20:59 07/10/20 20:54 Thiamine HCl (Vitamin B1) 100 mg DAILY ORAL 07/04/20 09:00 08/03/20 08:59 07/11/20 08:36 Zolpidem Tartrate (Ambien) 5 mg BEDTIME PRN ORAL Insomnia 07/03/20 18:45 07/16/20 18:44 07/10/20 22:24 Isma Schaffer M.D. Jul 11, 2020 21:03
--- NOTE | 2020-07-11 21:07 | Infectious Diseases Prog Note ---
Assessment/Plan Problems: (1) Acute pyelonephritis Assessment & Plan: due to E.coli and Proteus Mirabilis , complicated with sepsis and shock due to E coli , will continue ceftriaxone to complete two weeks course of treatment , repeated blood culture x 2 is negative which confirm clearance (2) Bilateral pneumonia Assessment & Plan: With interstitial infiltrations on chest x-ray, now on ceftriaxone to cover for bacteremia for two weeks , monitor chest x-ray, aspiration precaution. Patient was tested recently for COVID 19 with PCR test couple of days ago and it was negative as per the primary (3) Septic shock Assessment & Plan: due to the above with E coli , source most likely urine infection and pyelonephritis, will continue ceftriaxone to treat for two weeks (4) Acute renal failure Assessment & Plan: Suspect due to dehydration continue fluids, avoid nephrotoxic's, close monitor of renal function, nephrology follow up is recommended (5) Dehydration Assessment & Plan: Continue IV fluids for hydration and monitor electrolytes (6) Generalized weakness Assessment & Plan: Supportive care, PT OT eval Subjective Constitutional: Reports: no symptoms HEENT: Reports: no symptoms Respiratory: Reports: no symptoms Breasts: Reports: no symptoms Cardiovascular: Reports: no symptoms Gastrointestinal/Abdominal: Reports: no symptoms Genitourinary: Reports: no symptoms Neurologic: Reports: no symptoms Psychiatric: Reports: no symptoms Skin: Reports: no symptoms Endocrine: Reports: no symptoms Hematologic: Reports: no symptoms Musculoskeletal: Reports: no symptoms Allergies: Coded Allergies: No Known Allergies (Unverified , 07/03/20) she was comfortable, resting in bed , afebrile , waiting for transfer to rehab Objective Last 24 Hour Vital Signs Date Time Temp Pulse Resp B/P (MAP) Pulse Ox O2 Delivery O2 Flow Rate FiO2 07/11/20 16:00 98.0 63 18 131/59 (83) 95 07/11/20 16:00 60 07/11/20 13:21 65 18 96 Room Air 21 63 18 95 07/11/20 12:00 60 07/11/20 11:58 97.7 60 19 144/55 (84) 94 07/11/20 09:00 Room Air 07/11/20 08:36 63 07/11/20 08:00 98.0 63 18 149/58 (88) 95 07/11/20 08:00 52 07/11/20 04:00 98.0 62 18 152/53 (86) 96 07/11/20 04:00 60 07/11/20 00:00 60 07/11/20 00:00 98.6 64 18 130/60 (83) 98 Height (Feet): 5 Height (Inches): 1.00 Weight (Pounds): 137 General Appearance: WD/WN, no acute distress HEENT: normocephalic, atraumatic, anicteric, mucous membranes moist, PERRL Respiratory/Chest: chest wall non-tender, lungs clear, normal breath sounds, no respiratory distress, no accessory muscle use Cardiovascular: normal peripheral pulses, normal rate, regular rhythm, no gallop/murmur, no JVD Abdomen: normal bowel sounds, soft, non tender, no organomegaly, non distended, no mass, no scars Genitourinary: normal external genitalia Extremities: no cyanosis, no clubbing Skin: no rash, no lesions Neurologic/Psychiatric: alert, responsive Lymphatic: no neck adenopathy, no groin adenopathy Musculoskeletal: normal muscle bulk, no effusion Laboratory Tests Test 07/11/20 07:12 White Blood Count 6.2 K/UL (4.8-10.8) Red Blood Count 4.78 M/UL (4.20-5.40) Hemoglobin 8.4 G/DL (12.0-16.0) L Hematocrit 29.9 % (37.0-47.0) L Mean Corpuscular Volume 63 FL (80-99) L Mean Corpuscular Hemoglobin 17.7 PG (27.0-31.0) L Mean Corpuscular Hemoglobin Concent 28.3 G/DL (32.0-36.0) L Red Cell Distribution Width 18.3 % (11.6-14.8) H Platelet Count 212 K/UL (150-450) Mean Platelet Volume 7.6 FL (6.5-10.1) Neutrophils (%) (Auto) 58.7 % (45.0-75.0) Lymphocytes (%) (Auto) 28.3 % (20.0-45.0) Monocytes (%) (Auto) 4.9 % (1.0-10.0) Eosinophils (%) (Auto) 7.2 % (0.0-3.0) H Basophils (%) (Auto) 1.0 % (0.0-2.0) Sodium Level 146 MMOL/L (136-145) H Potassium Level 3.8 MMOL/L (3.5-5.1) Chloride Level 111 MMOL/L (98-107) H Carbon Dioxide Level 31 MMOL/L (21-32) Anion Gap 4 mmol/L (5-15) L Blood Urea Nitrogen 11 mg/dL (7-18) Creatinine 0.9 MG/DL (0.55-1.30) Estimat Glomerular Filtration Rate 59.2 mL/min (>60) Glucose Level 74 MG/DL (74-106) Calcium Level 8.5 MG/DL (8.5-10.1) Current Medications Medications (Trade) Dose Ordered Sig/Kallie Route PRN Reason Start Time Stop Time Status Last Admin Dose Admin Acetaminophen (Tylenol) 650 mg Q4H PRN ORAL Temp >100.5 07/03/20 18:30 08/02/20 18:29 07/04/20 11:45 Acetaminophen (Tylenol) 650 mg Q4H PRN ORAL pain 07/03/20 18:45 08/02/20 18:44 Albuterol Sulfate (Proventil MDI) 1 puff Q4H PRN INH Shortness of Breath 07/03/20 18:45 10/01/20 18:44 Albuterol/ Ipratropium (Albuterol/ Ipratropium) 3 ml Q4H PRN HHN Shortness of Breath 07/08/20 11:00 07/13/20 10:59 07/11/20 13:11 Amiodarone HCl (Cordarone) 400 mg DAILY ORAL 07/11/20 09:00 10/09/20 08:59 07/11/20 08:41 Aspirin (Ecotrin) 81 mg DAILY ORAL 07/11/20 12:30 08/25/20 12:29 07/11/20 13:57 Ceftriaxone Sodium 2 gm/ Dextrose 55 ml @ 110 mls/hr Q24H IVPB 07/08/20 21:00 07/22/20 23:59 07/10/20 20:54 Chlorhexidine Gluconate (Susan-Hex 2%) 1 applic DAILY@2000 TOPIC 07/04/20 20:00 10/02/20 19:59 07/11/20 20:00 Digoxin (Lanoxin) 0.125 mg DAILY ORAL 07/06/20 09:00 10/04/20 08:59 07/11/20 08:36 Duloxetine HCl (Cymbalta) 30 mg DAILY ORAL 07/04/20 09:00 10/02/20 08:59 07/11/20 08:36 Levothyroxine Sodium (Synthroid) 112 mcg DAILY@0630 ORAL 07/04/20 06:30 08/03/20 06:29 07/11/20 06:31 Magnesium Hydroxide (Mom) 30 ml DAILY ORAL 07/04/20 09:00 08/03/20 08:59 07/10/20 08:31 Memantine (Namenda) 5 mg DAILY ORAL 07/04/20 09:00 08/03/20 08:59 07/11/20 08:36 Metoprolol Tartrate (Lopressor) 12.5 mg Q12HR ORAL 07/11/20 21:00 10/09/20 20:59 Midodrine (Pro-Amatine) 5 mg EVERY 8 HOURS ORAL 07/11/20 18:00 10/03/20 17:59 07/11/20 17:46 Mirtazapine (Remeron) 7.5 mg BEDTIME ORAL 07/05/20 21:00 10/01/20 20:59 07/10/20 20:54 Multivitamins (Multivitamins) 1 tab DAILY ORAL 07/04/20 09:00 08/03/20 08:59 07/11/20 08:36 Pantoprazole (Protonix) 40 mg DAILY ORAL 07/04/20 09:00 08/03/20 08:59 07/11/20 08:36 Pravastatin Sodium (Pravachol) 10 mg BEDTIME ORAL 07/03/20 21:00 08/02/20 20:59 07/10/20 20:54 Thiamine HCl (Vitamin B1) 100 mg DAILY ORAL 07/04/20 09:00 08/03/20 08:59 07/11/20 08:36 Zolpidem Tartrate (Ambien) 5 mg BEDTIME PRN ORAL Insomnia 07/03/20 18:45 07/16/20 18:44 07/10/20 22:24 Isma Schaffer M.D. Jul 11, 2020 21:07
[2020-07-11] MEDS: cefTRIAXone 2 GM in D5W 55 ML IVPB SCH (21:22)
[2020-07-11] MEDS: Zolpidem 5mg tab ORAL PRN (23:50)
[2020-07-12] VITALS: BP 140/64
[2020-07-12 04:00] VITALS: BP 144/63
[2020-07-12] MEDS: Midodrine 10mg tab ORAL SCH ×3 (05:44→21:08)
--- NOTE | 2020-07-12 07:15 | NUR ---
NURSE HAND-OFF REPORT: Important Events on Shift:[Moved to 201-1] Patient Status: [full code] Diet: [mech-soft ground] Pending Orders: [] Pending Results/Labs:[] Pending MD notification:[] Latest Vital Signs: Temperature 98.1 , Pulse 58 , B/P 144 /63 , Respiratory Rate 20 , O2 SAT 94 , Room Air, O2 Flow Rate . Vital Sign Comment: [] EKG Rhythm: AV-Paced Rhythm change?: N MD Notified?: - MD Response: Latest Parada Fall Score: 45 Fall Risk: High Risk Safety Measures: Call light Within Reach, Bed Alarm Zone 2, Side Rails Side Rails x3, Bed position Low and Locked. Fall Precautions: Yellow Socks Door Sign Report given to [TAYLOR Sexton].
--- NOTE | 2020-07-12 07:20 | NUR ---
NURSE NOTES: Patient received from EMILIE Canchola. Patient is A/A/Ox2, able to follow simple commands. In bed calm and comfortable. requiring reorientation. on room air with no signs of acute respiratory distress noted. Right femoral TLC patent and intact. On bilateral soft wrists restraints for potential removing devices. sensation WNL. HOB elevated for aspiration precaution. Bed is in the lowest position and locked, call light within reach. siderails are upx3. Will continue to monitor.
[2020-07-12 08:00] VITALS: BP 143/60
[2020-07-12] MEDS: Digoxin 0.125mg tab ORAL SCH (08:23)
[2020-07-12] MEDS: Thiamine 100mg tab ORAL SCH (08:23)
[2020-07-12] MEDS: DULoxetine 30mg cap ORAL SCH (08:24)
[2020-07-12] MEDS: Amiodarone 200mg tab ORAL SCH (08:24)
[2020-07-12] MEDS: Aspirin EC 81mg tab ORAL SCH (08:24)
[2020-07-12] MEDS: Metoprolol Tartrate 12.5mg TAB ORAL SCH ×2 (08:24→21:09)
[2020-07-12] MEDS: Memantine 10mg tab ORAL SCH (08:24)
[2020-07-12] MEDS: Milk of Magnesia 30ml Ud ORAL SCH (08:25)
--- NOTE | 2020-07-12 09:16 | NUR ---
NURSE NOTES: Patient is calm and cooperative. able to follow instructions. d/c restraints. will cont to monitor.
[2020-07-12] MEDS ORDERED: NS 275ml ONE (10:07)
[2020-07-12 12:00] VITALS: BP 137/62
--- NOTE | 2020-07-12 12:38 | NUR ---
NURSE NOTES: [facility] CALLED AND SPOKE WITH HESHAM, ADMISSION STATED THAT HEALTH INSURANCE OF THE PATIENT STILL NOT VERIFYING. NOTIFIED DR BARRIOS AND MADE AWARE. WILL CONT TO MONITOR.
[2020-07-12] MEDS ORDERED: Albuterol 90mcg Inhaler 8gm INH PRN (14:45)
--- NOTE | 2020-07-12 15:08 | Cardiac Electrophysiology PN ---
Assessment/Plan Assessment/Plan 1. Elevated troponin of 0.08 and 0.144. It could be due to demand ischemia in this patient who also has renal failure with creatinine of 2.6. and severe anemia with hemoglobin of 6.9. On Lopressor 12.5 bid and aspirin 81 mg daily 2. S/P Septic shock resolved. On Midodrine 5 tid 3. 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 Atrial fib with RVR. Continue Dig 0.125 po daily, Amiodarone 400 po daily and Lopressor 12.5 bid Off anticoagulation as Platelet was in 20s. Now on Aspirin 81 daily . Dig level 0.6 5. Dementia. 6. Hyperlipidemia, on Pravachol. 7. Hypothyroidism, on Synthroid. DW RN Subjective Subjective No more atrial fib. Atrially paced. Off restraints No CP or SOB. Objective Last 24 Hour Vital Signs Date Time Temp Pulse Resp B/P (MAP) Pulse Ox O2 Delivery O2 Flow Rate FiO2 07/12/20 12:00 97.8 63 18 137/62 (87) 96 07/12/20 12:00 60 07/12/20 09:00 Room Air 07/12/20 08:24 78 143/60 07/12/20 08:23 78 07/12/20 08:00 98.1 78 18 143/60 (87) 96 07/12/20 08:00 62 07/12/20 04:00 98.1 61 20 144/63 (90) 94 07/12/20 04:00 58 07/12/20 00:00 64 07/12/20 00:00 98.5 60 22 140/64 (89) 93 07/11/20 21:21 62 140/50 07/11/20 21:00 Room Air 07/11/20 20:00 97.7 62 22 140/50 (80) 93 07/11/20 20:00 60 07/11/20 16:00 98.0 63 18 131/59 (83) 95 07/11/20 16:00 60 Intake and Output 07/11/20 07/12/20 19:00 07:00 Intake Total 240 ml Output Total 1103 ml 800 ml Balance -863 ml -800 ml Intake Oral 240 ml Output Urine Total 1100 ml 800 ml Stool Total 3 ml # Voids 1 1 # Bowel Movements 2 Objective HEAD AND NECK: Showed no JVD. LUNGS: Clear. CARDIOVASCULAR: Irregular S1 and S2 with no gallop or murmur. Pacer left subclavian ABDOMEN: Soft. EXTREMITIES: No pitting edema. Jorge Abbott MD Jul 12, 2020 15:08
[2020-07-12 16:06] VITALS: BP 145/56
--- NOTE | 2020-07-12 16:12 | NUR ---
NURSE NOTES: PATIENT APPEARED CONGESTED AND HAVING WHEEZING ON AUSCULTATION. PATIENT ABLE TO EXPECTORATE SPUTUM. CALLED RT FOR HHN HOWEVER PATIENT THROW THE MASK @ THE RT, TORY. PATIENT REFUSED TO HAVE HHN @ THIS TIME. NO ACUTE RESP DISTRESS NOTED. WILL CONT TO MONITOR.
[2020-07-12] MEDS: Albuterol/Ipratropium 3ml neb HHN PRN (16:13)
--- NOTE | 2020-07-12 18:51 | NUR ---
NURSE HAND-OFF REPORT: Important Events on Shift:[OFF BILATERAL SOFT WRISTS RESTRAINTS AND ABLE TO FOLLOW AND MORE ALERT TODAY. ] Patient Status: [FC] Diet: [MECH SOFT GROUND ] Pending Orders: [PENDING DISCHARGE] Pending Results/Labs:[] Pending MD notification:[] Latest Vital Signs: Temperature 97.9 , Pulse 61 , B/P 145 /56 , Respiratory Rate 18 , O2 SAT 98 , Room Air, O2 Flow Rate . Vital Sign Comment: [] EKG Rhythm: A-Paced Rhythm change?: N MD Notified?: - MD Response: Latest Parada Fall Score: 45 Fall Risk: High Risk Safety Measures: Call light Within Reach, Bed Alarm Zone 2, Side Rails Side Rails x3, Bed position Low and Locked. Fall Precautions: Yellow Socks Door Sign Report given to [EMILIE LLANOS].
--- NOTE | 2020-07-12 18:57 | General Progress Note ---
Subjective Date patient seen: Jul 12, 2020 Time patient seen: 05:20 Constitutional: Reports: weakness HEENT: Reports: no symptoms Cardiovascular: Reports: no symptoms Respiratory: Reports: no symptoms Gastrointestinal/Abdominal: Reports: no symptoms Genitourinary: Reports: no symptoms Neurologic/Psychiatric: Reports: no symptoms Endocrine: Reports: no symptoms Hematologic/Lymphatic: Reports: anemia Allergies: Coded Allergies: No Known Allergies (Unverified , 07/03/20) Subjective No sob or chest pain. no nausea or vomiting. she is awake and afebrile. Objective Last 24 Hour Vital Signs Date Time Temp Pulse Resp B/P (MAP) Pulse Ox O2 Delivery O2 Flow Rate FiO2 07/12/20 16:06 97.9 61 18 145/56 (85) 98 07/12/20 16:00 60 07/12/20 12:00 97.8 63 18 137/62 (87) 96 07/12/20 12:00 60 07/12/20 09:00 Room Air 07/12/20 08:24 78 143/60 07/12/20 08:23 78 07/12/20 08:00 98.1 78 18 143/60 (87) 96 07/12/20 08:00 62 07/12/20 04:00 98.1 61 20 144/63 (90) 94 07/12/20 04:00 58 07/12/20 00:00 64 07/12/20 00:00 98.5 60 22 140/64 (89) 93 07/11/20 21:21 62 140/50 07/11/20 21:00 Room Air 07/11/20 20:00 97.7 62 22 140/50 (80) 93 07/11/20 20:00 60 Intake and Output 07/11/20 07/12/20 19:00 07:00 Intake Total 240 ml Output Total 1103 ml 800 ml Balance -863 ml -800 ml Intake Oral 240 ml Output Urine Total 1100 ml 800 ml Stool Total 3 ml # Voids 1 1 # Bowel Movements 2 Height (Feet): 5 Height (Inches): 1.00 Weight (Pounds): 137 General Appearance: no apparent distress, alert EENT: normal ENT inspection Neck: non-tender, supple Cardiovascular: normal rate, regular rhythm Respiratory/Chest: lungs clear, normal breath sounds Abdomen: non tender, soft Extremities: non-tender Edema: no edema noted Leg (L), no edema noted Leg (R) Skin: warm/dry Assessment/Plan Status: stable Assessment/Plan: 1. Septic shock - resolved. doing better. In med surg and off pressor. 2. Sepsis - cont IV rocephin for total of 2 wks. ID is following. 3. ARF - resolving. off IVF and cont IV antibiotic. 4. Elevated Troponin most likely due to sepsis and ARF 5. Thrombocytopenia - resolved. was not seen by dr Yeung. 6. Pneumonia - cont IV abx as above. 7. UTI - cont above antibiotic for total of 2 wks. 8. Pacemaker - [employer] is following. 9. Generalized weakness - unable to stand with PT. D/C planning tomorrow to rehab. awaiting d/c to rehab. 10. Anemia - hx of thalessemia. stable. 11. Hyperlipidemia - cont home meds. 12. HX of HTN - restarted metoprolol. 13, Dementia - on namenda 5 mg daily. 14. Atrial fib - off Cardizem and on Amiodarone and digoxin per [employer] assault [employer]ner. cont ASA 81 mg po daily and due to high risk of fall, will not start any other anticoagulation at this time. discussed with [employer] assault gunner as well. Matthew Pak MD Jul 12, 2020 18:57
--- NOTE | 2020-07-12 19:00 | NUR ---
NURSE NOTES: Received patient from TAYLOR Sexton. AOx2, able to verbalize needs. on room air, saturating well. Off bilateral soft wrist restraints. TLC flushed and ports changed. Seen to be restless, trying to get out of bed, repeatedly reoriented to reality. Contacted and left a message with next of kin for assistance to calm patient down. Bed in lowest position, brakes engaged and bed alarm in zone 2 on. Call light placed within reach. Will continue to monitor.
[2020-07-12 20:00] VITALS: BP 152/58
[2020-07-12] MEDS: Dyna-Hex 2% Top Sol 2oz TOPIC SCH (20:24)
[2020-07-12] MEDS: Zolpidem 5mg tab ORAL PRN (20:27)
--- NOTE | 2020-07-12 20:37 | Infectious Diseases Prog Note ---
Assessment/Plan Problems: (1) Acute pyelonephritis Assessment & Plan: due to E.coli and Proteus Mirabilis , complicated with sepsis and shock due to E coli , will continue ceftriaxone to complete two weeks course of treatment , repeated blood culture x 2 is negative which confirm clearance (2) Bilateral pneumonia Assessment & Plan: With interstitial infiltrations on chest x-ray, now on ceftriaxone to cover for bacteremia for two weeks , monitor chest x-ray, aspiration precaution. Patient was tested recently for COVID 19 with PCR test couple of days ago and it was negative as per the primary (3) Septic shock Assessment & Plan: due to the above with E coli , source most likely urine infection and pyelonephritis, will continue ceftriaxone to treat for two weeks (4) Acute renal failure Assessment & Plan: Suspect due to dehydration continue fluids, avoid nephrotoxic's, close monitor of renal function, nephrology follow up is recommended (5) Dehydration Assessment & Plan: Continue IV fluids for hydration and monitor electrolytes (6) Generalized weakness Assessment & Plan: Supportive care, PT OT eval Subjective Constitutional: Reports: no symptoms HEENT: Reports: no symptoms Respiratory: Reports: no symptoms Breasts: Reports: no symptoms Cardiovascular: Reports: no symptoms Gastrointestinal/Abdominal: Reports: no symptoms Genitourinary: Reports: no symptoms Neurologic: Reports: confusion Psychiatric: Reports: no symptoms Skin: Reports: no symptoms Endocrine: Reports: no symptoms Hematologic: Reports: no symptoms Musculoskeletal: Reports: no symptoms Allergies: Coded Allergies: No Known Allergies (Unverified , 07/03/20) late entry note for 07/10/20 she was afebrile , resting in bed, had no cough or SOB, no diarrhea Objective Last 24 Hour Vital Signs Date Time Temp Pulse Resp B/P (MAP) Pulse Ox O2 Delivery O2 Flow Rate FiO2 07/12/20 16:06 97.9 61 18 145/56 (85) 98 07/12/20 16:00 60 07/12/20 12:00 97.8 63 18 137/62 (87) 96 07/12/20 12:00 60 07/12/20 09:00 Room Air 07/12/20 08:24 78 143/60 07/12/20 08:23 78 07/12/20 08:00 98.1 78 18 143/60 (87) 96 07/12/20 08:00 62 07/12/20 04:00 98.1 61 20 144/63 (90) 94 07/12/20 04:00 58 07/12/20 00:00 64 07/12/20 00:00 98.5 60 22 140/64 (89) 93 07/11/20 21:21 62 140/50 07/11/20 21:00 Room Air Height (Feet): 5 Height (Inches): 1.00 Weight (Pounds): 137 General Appearance: WD/WN, no acute distress HEENT: normocephalic, atraumatic, anicteric, mucous membranes moist, PERRL Respiratory/Chest: chest wall non-tender, lungs clear, normal breath sounds, no respiratory distress, no accessory muscle use Cardiovascular: normal peripheral pulses, normal rate, regular rhythm, no gallop/murmur, no JVD Abdomen: normal bowel sounds, soft, non tender, no organomegaly, non distended, no mass, no scars Genitourinary: normal external genitalia Extremities: no cyanosis, no clubbing Skin: no rash, no lesions Neurologic/Psychiatric: alert, responsive Lymphatic: no neck adenopathy, no groin adenopathy Musculoskeletal: normal muscle bulk Current Medications Medications (Trade) Dose Ordered Sig/Kallie Route PRN Reason Start Time Stop Time Status Last Admin Dose Admin Acetaminophen (Tylenol) 650 mg Q4H PRN ORAL Temp >100.5 07/03/20 18:30 08/02/20 18:29 07/04/20 11:45 Acetaminophen (Tylenol) 650 mg Q4H PRN ORAL pain 07/03/20 18:45 08/02/20 18:44 07/12/20 20:28 Albuterol Sulfate (Proventil MDI) 1 puff Q4H PRN INH Shortness of Breath 07/12/20 14:45 10/10/20 14:44 Albuterol/ Ipratropium (Albuterol/ Ipratropium) 3 ml Q4H PRN HHN Shortness of Breath 07/08/20 11:00 07/13/20 10:59 07/12/20 16:13 Amiodarone HCl (Cordarone) 400 mg DAILY ORAL 07/11/20 09:00 10/09/20 08:59 07/12/20 08:24 Aspirin (Ecotrin) 81 mg DAILY ORAL 07/11/20 12:30 08/25/20 12:29 07/12/20 08:24 Ceftriaxone Sodium 2 gm/ Dextrose 55 ml @ 110 mls/hr Q24H IVPB 07/08/20 21:00 07/22/20 23:59 07/11/20 21:22 Chlorhexidine Gluconate (Susan-Hex 2%) 1 applic DAILY@2000 TOPIC 07/04/20 20:00 10/02/20 19:59 07/12/20 20:24 Digoxin (Lanoxin) 0.125 mg DAILY ORAL 07/06/20 09:00 10/04/20 08:59 07/12/20 08:23 Duloxetine HCl (Cymbalta) 30 mg DAILY ORAL 07/04/20 09:00 10/02/20 08:59 07/12/20 08:24 Levothyroxine Sodium (Synthroid) 112 mcg DAILY@0630 ORAL 07/04/20 06:30 08/03/20 06:29 07/12/20 05:44 Magnesium Hydroxide (Mom) 30 ml DAILY ORAL 07/04/20 09:00 08/03/20 08:59 07/10/20 08:31 Memantine (Namenda) 5 mg DAILY ORAL 07/04/20 09:00 08/03/20 08:59 07/12/20 08:24 Metoprolol Tartrate (Lopressor) 12.5 mg Q12HR ORAL 07/12/20 09:00 10/10/20 08:59 07/12/20 08:24 Midodrine (Pro-Amatine) 5 mg EVERY 8 HOURS ORAL 07/11/20 18:00 10/03/20 17:59 07/12/20 13:48 Mirtazapine (Remeron) 7.5 mg BEDTIME ORAL 07/05/20 21:00 10/01/20 20:59 07/11/20 21:21 Multivitamins (Multivitamins) 1 tab DAILY ORAL 07/04/20 09:00 08/03/20 08:59 07/12/20 08:23 Pantoprazole (Protonix) 40 mg DAILY ORAL 07/04/20 09:00 08/03/20 08:59 07/12/20 08:24 Pravastatin Sodium (Pravachol) 10 mg BEDTIME ORAL 07/03/20 21:00 08/02/20 20:59 07/11/20 21:20 Thiamine HCl (Vitamin B1) 100 mg DAILY ORAL 07/04/20 09:00 08/03/20 08:59 07/12/20 08:23 Zolpidem Tartrate (Ambien) 5 mg BEDTIME PRN ORAL Insomnia 07/03/20 18:45 07/16/20 18:44 07/12/20 20:27 Isma Schaffer M.D. Jul 12, 2020 20:37
[2020-07-12] MEDS: cefTRIAXone 2 GM in D5W 55 ML IVPB SCH (21:11)
[2020-07-13] VITALS (7 sets, daily range): BP systolic 110–159; BP diastolic 60–66
[2020-07-13] MEDS: Midodrine 10mg tab ORAL SCH ×3 (05:40→21:56)
[2020-07-13 06:22] LABS: BASOPHILS % (AUTO) 0.9 % (0.0-2.0); EOSINOPHILS % (AUTO) 4.7 % (0.0-3.0); HEMATOCRIT 28.9 % (37.0-47.0); HEMOGLOBIN 8.2 G/DL (12.0-16.0); LYMPHOCYTES % (AUTO) 19.6 % (20.0-45.0); MEAN CORPUSCULAR VOLUME 61 FL (80-99); MONOCYTES % (AUTO) 4.5 % (1.0-10.0); NEUTROPHILS % (AUTO) 70.4 % (45.0-75.0); PLATELET COUNT 197 K/UL (150-450); RED BLOOD COUNT 4.69 M/UL (4.20-5.40); RED CELL DISTRIBUTION WIDTH 18.4 % (11.6-14.8); WHITE BLOOD COUNT 8.8 K/UL (4.8-10.8)
--- NOTE | 2020-07-13 06:25 | NUR ---
RD ASSESSMENT & RECOMMENDATIONS SEE CARE ACTIVITY FOR COMPLETE ASSESSMENT DAILY ESTIMATED NEEDS: Needs based on Sepsis 50kg abw 25-35 kcals/kg 9655-7220 total kcals 1-2 g protein/kg 50-100 g total protein 25-30ml/kcal mL/kg 6021-8599 total fluid mLs NUTRITION DIAGNOSIS: Altered nutrition related lab values rt/ clinical status as evidenced by episodes of hypoglycemia (70, 66->74 100 84), elevated Na/BUN/Creat, now wnl, elevated BNP(11935), hypotensive on pressors, now dc'ed. CURRENT DIET: Soft diet/ kosher, ms ground PO DIET RECOMMENDATIONS: Liberalized Regular diet/ kosher/ texture per INJECTION MOLD TOOLING TECHNICIAN ADDITIONAL RECOMMENDATIONS: 1) maintain calibrated bed scale wt 2) INJECTION MOLD TOOLING TECHNICIAN eval for appropriate texture 3) Add D5 with poor po, monitor for hypoglycemia -> Na consistently elevated as well -> Rec accuchecks and f/up BMP 4) Continue Ensure TID w/ meals
[2020-07-13 06:32] LABS: CALCIUM 8.2 MG/DL (8.5-10.1)
--- NOTE | 2020-07-13 07:00 | NUR ---
CASE MANAGEMENT:REVIEW 07/13/20 SI: E COLI SEPSIS. PNA. UTI. AFIB. TROPONIN LEAK 97.5 61 20 159/63 94% ON RA H/H-8.2/38.9 CA-8.2 IS: IV ROCEPHIN Q24 MIDODRINE PO Q8HRS DIGOXIN PO QD AMIODARONE PO Q12 REMERON PO QHS CYMBALTA PO QD SYNTHROID PO QD : TELEMETRY STATUS DCP: FROM [facility] CARE PLAN: REFER TO [facility]
--- NOTE | 2020-07-13 07:37 | NUR ---
NURSE HAND-OFF REPORT: Important Events on Shift:[Off restraints, endorsed for SNF placement] Patient Status: [full code] Diet: [[facility] soft-ground] Pending Orders: [] Pending Results/Labs:[AM labs] Pending MD notification:[] Latest Vital Signs: Temperature 97.5 , Pulse 61 , B/P 159 /63 , Respiratory Rate 20 , O2 SAT 94 , Room Air, O2 Flow Rate . Vital Sign Comment: [] EKG Rhythm: A-Paced Rhythm change?: N MD Notified?: - MD Response: Latest Parada Fall Score: 45 Fall Risk: High Risk Safety Measures: Call light Within Reach, Bed Alarm Zone 2, Side Rails Side Rails x3, Bed position Low and Locked. Fall Precautions: Yellow Socks Door Sign Report given to [EMILIE Dhaliwal].
--- NOTE | 2020-07-13 07:39 | NUR ---
NURSE NOTES: Patient received from EMILIE Canchola. Patient seen in bed eating breakfast in high fowlers position with no acute signs of distress. Patient has a right femoral TLC that is clean, patent and intact. The is on room air with oxygen saturation within normal limits. The patients bed is in lowest position, locked, side rails x3, bed alarm in zone 1 and call light within reach.
--- NOTE | 2020-07-13 08:59 | General Progress Note ---
Subjective Date patient seen: Jul 13, 2020 Time patient seen: 08:40 Constitutional: Reports: weakness HEENT: Reports: no symptoms Cardiovascular: Reports: no symptoms Respiratory: Reports: no symptoms Gastrointestinal/Abdominal: Reports: no symptoms Genitourinary: Reports: no symptoms Neurologic/Psychiatric: Reports: weakness Hematologic/Lymphatic: Reports: anemia Allergies: Coded Allergies: No Known Allergies (Unverified , 07/03/20) Subjective No sob or chest pain. no nausea or vomiting. she is awake and afebrile and awaiting discharge to rehab. Objective Last 24 Hour Vital Signs Date Time Temp Pulse Resp B/P (MAP) Pulse Ox O2 Delivery O2 Flow Rate FiO2 07/13/20 08:00 60 07/13/20 08:00 98.9 61 19 150/66 (94) 96 07/13/20 04:00 97.5 61 20 159/63 (95) 94 07/13/20 03:47 60 07/13/20 00:00 60 07/13/20 00:00 97.3 59 20 140/62 (88) 93 07/12/20 21:09 61 152/58 07/12/20 21:00 Room Air 07/12/20 20:58 97.9 07/12/20 20:00 60 07/12/20 20:00 97.7 61 20 152/58 (89) 94 07/12/20 16:06 97.9 61 18 145/56 (85) 98 07/12/20 16:00 60 07/12/20 12:00 97.8 63 18 137/62 (87) 96 07/12/20 12:00 60 07/12/20 09:00 Room Air Intake and Output 07/12/20 07/13/20 19:00 07:00 Intake Total 240 ml 120 ml Balance 240 ml 120 ml Intake Oral 240 ml 120 ml # Voids 3 2 # Bowel Movements 1 Laboratory Tests 07/13/20 04:00: White Blood Count 8.8, Red Blood Count 4.69, Hemoglobin 8.2L, Hematocrit 28.9L, Mean Corpuscular Volume 61L, Mean Corpuscular Hemoglobin 17.4L, Mean Corpuscular Hemoglobin Concent 28.3L, Red Cell Distribution Width 18.4H, Platelet Count 197, Mean Platelet Volume 7.2, Neutrophils (%) (Auto) 70.4, Lymphocytes (%) (Auto) 19.6L, Monocytes (%) (Auto) 4.5, Eosinophils (%) (Auto) 4.7H, Basophils (%) (Auto) 0.9, Sodium Level 145, Potassium Level 4.0, Chloride Level 111H, Carbon Dioxide Level 31, Anion Gap 3L, Blood Urea Nitrogen 11, Creatinine 1.0, Estimat Glomerular Filtration Rate 52.5, Glucose Level 80, Calcium Level 8.2L Height (Feet): 5 Height (Inches): 1.00 Weight (Pounds): 137 General Appearance: no apparent distress, alert EENT: normal ENT inspection Neck: non-tender, supple Cardiovascular: normal rate, regular rhythm Respiratory/Chest: chest wall non-tender, lungs clear, normal breath sounds Abdomen: non tender, soft Extremities: non-tender Edema: no edema noted Leg (L), no edema noted Leg (R) Neurologic: alert, responsive Skin: warm/dry Assessment/Plan Status: stable Assessment/Plan: 1. Septic shock - resolved. doing better. In med surg and off pressor. 2. Sepsis - cont IV rocephin for total of 2 wks. ID is following. 3. ARF - resolving. off IVF and cont IV antibiotic. 4. Elevated Troponin most likely due to sepsis and ARF 5. Thrombocytopenia - resolved. was not seen by dr Yeung. 6. Pneumonia - cont IV abx as above. 7. UTI - cont above antibiotic for total of 2 wks. 8. Pacemaker - stem lead former is following. 9. Generalized weakness - unable to stand with PT. awaiting D/C to rehab today. 10. Anemia - hx of thalessemia. stable. 11. Hyperlipidemia - cont home meds. 12. HX of HTN - restarted metoprolol. 13, Dementia - on namenda 5 mg daily. 14. Atrial fib - off Cardizem and on Amiodarone and digoxin per stem lead former. cont ASA 81 mg po daily and due to high risk of fall, will not start any other anticoagulation at this time. discussed with stem lead former as well. Matthew Pak MD Jul 13, 2020 08:59
[2020-07-13] MEDS: Milk of Magnesia 30ml Ud ORAL SCH (09:00)
[2020-07-13] MEDS: Aspirin EC 81mg tab ORAL SCH (09:03)
[2020-07-13] MEDS: DULoxetine 30mg cap ORAL SCH (09:03)
[2020-07-13] MEDS: Memantine 10mg tab ORAL SCH (09:03)
[2020-07-13] MEDS: Thiamine 100mg tab ORAL SCH (09:03)
[2020-07-13] MEDS: Metoprolol Tartrate 12.5mg TAB ORAL SCH ×2 (09:04→21:55)
[2020-07-13] MEDS: Digoxin 0.125mg tab ORAL SCH (09:04)
[2020-07-13] MEDS: Amiodarone 200mg tab ORAL SCH (09:04)
--- NOTE | 2020-07-13 10:25 | NUR ---
*-*DISCHARGE PLANNING*-* PATIENT HAS BEEN REFERRED TO: [facility] P: [phone] S/W RAY, WILL CHECK PATIENTS INSURANCE, WILL CALL BACK.
[2020-07-13] MEDS ORDERED: Lidocaine 1% Plain 30 ml INJ PRN (12:45)
[2020-07-13] MEDS ORDERED: Heparin1,000 units/500ml Premix(Conc:2 units/ml) IV PRN (12:45)
--- NOTE | 2020-07-13 12:50 | Consultation ---
History of Present Illness General Date patient seen: Jul 13, 2020 Reason for Hospitalization: Generalized Weakness Present Illness HPI This is a 89-year-old female multimedical comorbidities who is currently admitted to [facility] undergoing medical management of acute p yelonephritis. Patient initially presented to the hospital septic had a emergently femoral central venous catheter placed and has been on antibiotics since. In discussion with infectious disease patient needs antibiotics for a few weeks and therefore will need peripheral or central access at which time she does not have good peripheral access with viable and long-term events and the femoral catheter needs to be removed and discharge planning needs to be done. Surgery called to evaluate for line management and care plan of patient with goals of care and care planning in mind. Patient seen patient evaluate chart reviewed. Allergies: Coded Allergies: No Known Allergies (Unverified , 07/03/20) COVID-19 Screening Contact w/high risk pt: Yes Experienced COVID-19 symptoms?: Yes Coronavirus symptoms experienc: Fever (T>100.4F or >38C), Fatigue, Shortness of Breath Medication History Scheduled Aspirin Ec* (Aspirin Ec*), 81 MG ORAL DAILY, (Reported) Cholecalciferol (Vitamin D3) (Vitamin D3*), 1,250 MCG PO DAILY, (Reported) Cranberry Fruit (Cranberry), 450 MG PO DAILY, (Reported) Dextran 70/Hypromellose (Artificial Tears Eye Drops*), 2 DROP BOTH EYES BID, (Reported) Digoxin* (Digoxin*), 125 MCG ORAL QOD, (Reported) Dronedarone Hydrochloride (Multaq), 400 MG ORAL TWICE A DAY, (Reported) Duloxetine HCl (Duloxetine HCl*), 30 MG PO DAILY, (Reported) Ferrous Sulfate* (Ferrous Sulfate*), 325 MG ORAL DAILY, (Reported) Furosemide* (Lasix*), 20 MG ORAL DAILY, (Reported) Levothyroxine Sodium* (Synthroid*), 112 MCG ORAL DAILY, (Reported) Lidocaine Patch* (Lidoderm Patch*), 1 PATCH TOPIC DAILY, (Reported) Loratadine (Claritin*), 10 MG PO DAILY, (Reported) Memantine Hcl* (Namenda*), 5 MG ORAL BID, (Reported) Mirtazapine* (Mirtazapine*), 7.5 MG ORAL BEDTIME, (Reported) Multivitamin With Minerals (Multivitamins With Minerals*), 1 TAB ORAL DAILY, (Reported) Pantoprazole* (Pantoprazole*), 40 MG ORAL BID, (Reported) Pravastatin Sod (Pravastatin Sod), 10 MG ORAL BEDTIME, (Reported) Spironolactone* (Aldactone*), 12.5 MG ORAL DAILY, (Reported) Thiamine Hcl* (Vitamin B-1*), 100 MG ORAL DAILY, (Reported) Zolpidem Tartrate* (Zolpidem Tartrate*), 5 MG ORAL BEDTIME, (Reported) Scheduled PRN Acetaminophen* (Acetaminophen 325MG Tablet*), 650 MG ORAL Q4H PRN for Pain Scale (3-5), (Reported) Guaifenesin* (Guaifenesin*), 10 ML ORAL Q6HR PRN for FOR COUGH, (Reported) Ipratropium/Albuterol Sulfate (Iprat-Albut 0.5-3(2.5) Mg/3 Ml), 3 ML IH Q6HR PRN for sob/wheezing, (Reported) Magnesium Hydroxide* (Milk Of Magnesia*), 30 ML ORAL DAILY PRN for bowel suresh gement, (Reported) Sodium Chloride (Deep Sea), 44 ML NS Q24H PRN for allergy, (Reported) Discontinued Medications Albuterol Sulfate* (Albuterol Sulfate Hhn*), 3 ML INH Q4H PRN for Shortness of Breath, (Reported) Discontinued Reason: Prescription changed Cranberry (Cranberry), 400 MG PO, (Reported) Discontinued Reason: Prescription changed Digoxin* (Digoxin*), 0.125 MG ORAL DAILY, (Reported) Discontinued Reason: Prescription changed Levothyroxine Sodium* (Levothyroxine Sodium*), 112 MCG ORAL DAILY, (Reported) Discontinued Reason: Prescription changed Multivitamins* (Multivitamins*), 1 TAB ORAL DAILY, (Reported) Discontinued Reason: Prescription changed Patient History Limited by: age, medical condition History Provided By: Patient, Medical Record, PMD Healthcare decision maker N Resuscitation status Advanced Directive on File Past Medical/Surgical History Past Medical/Surgical History: (1) Arthritis (2) CHF (congestive heart failure) (3) Dehydration (4) Bilateral pneumonia (5) Septic shock (6) Person under investigation for COVID-19 (7) Generalized weakness (8) Acute pyelonephritis (9) Urinary tract infection (10) Acute renal failure (11) Dementia Family History Family History: Unknown family medical history Review of Systems Review of Symptoms General ROS: no weight loss or fever Psychological ROS: no depression or mood changes, no memory loss Ophthalmic ROS: no visual changes or eye irritation ENT ROS: no nasal congestion, hearing loss, dizziness Allergy and Immunology ROS: no allergic symptoms or urticaria Hematological and Lymphatic ROS: no swollen glands, unusual bleeding or bruising Endocrine ROS: no polyuria, polydipsia, weight changes, temperature intolerance Respiratory ROS: no cough, shortness of breath, or wheezing Cardiovascular ROS: no chest pain or dyspnea on exertion Gastrointestinal ROS: denies abdominal pain, bright red blood in stool. Musculoskeletal ROS: no myalgias or arthralgias Neurological ROS: no TIA or stroke symptoms Dermatological ROS: no new or changing skin lesions, rashes or pruritis Physical Exam Physical Exam General appearance: alert, cooperative, no distress, appears stated age Head: Normocephalic, without obvious abnormality, atraumatic Eyes: conjunctivae/corneas clear. PERRL, EOM's intact. Fundi benign Throat: Lips, mucosa, and tongue normal. Teeth and gums normal Neck: supple, symmetrical, trachea midline, no adenopathy, thyroid: not e nlarged, symmetric, no tenderness/mass/nodules, no carotid bruit and no JVD Lungs: clear to auscultation bilaterally Heart: regular rate and rhythm, S1, S2 normal, no murmur, click, rub or gallop Abdomen: soft, non-tender. Bowel sounds normal. No masses, no organomegaly Extremities: extremities normal, atraumatic, no cyanosis or edema Pulses: 2+ and symmetric Skin: Skin color, texture, turgor normal. No rashes or lesions Neurologic: Grossly normal Last 24 Hour Vital Signs Date Time Temp Pulse Resp B/P (MAP) Pulse Ox O2 Delivery O2 Flow Rate FiO2 07/13/20 12:00 61 07/13/20 12:00 97.1 61 18 142/62 (88) 93 07/13/20 09:04 64 150/66 07/13/20 09:04 64 07/13/20 09:00 Room Air 07/13/20 08:00 60 07/13/20 08:00 98.9 61 19 150/66 (94) 96 07/13/20 04:00 97.5 61 20 159/63 (95) 94 07/13/20 03:47 60 07/13/20 00:00 60 07/13/20 00:00 97.3 59 20 140/62 (88) 93 07/12/20 21:09 61 152/58 07/12/20 21:00 Room Air 07/12/20 20:58 97.9 07/12/20 20:00 60 07/12/20 20:00 97.7 61 20 152/58 (89) 94 07/12/20 16:06 97.9 61 18 145/56 (85) 98 07/12/20 16:00 60 Intake and Output 07/12/20 07/13/20 18:59 06:59 Intake Total 240 ml 120 ml Balance 240 ml 120 ml Intake Oral 240 ml 120 ml # Voids 3 2 # Bowel Movements 1 Laboratory Tests Test 07/13/20 04:00 White Blood Count 8.8 K/UL (4.8-10.8) Red Blood Count 4.69 M/UL (4.20-5.40) Hemoglobin 8.2 G/DL (12.0-16.0) L Hematocrit 28.9 % (37.0-47.0) L Mean Corpuscular Volume 61 FL (80-99) L Mean Corpuscular Hemoglobin 17.4 PG (27.0-31.0) L Mean Corpuscular Hemoglobin Concent 28.3 G/DL (32.0-36.0) L Red Cell Distribution Width 18.4 % (11.6-14.8) H Platelet Count 197 K/UL (150-450) Mean Platelet Volume 7.2 FL (6.5-10.1) Neutrophils (%) (Auto) 70.4 % (45.0-75.0) Lymphocytes (%) (Auto) 19.6 % (20.0-45.0) L Monocytes (%) (Auto) 4.5 % (1.0-10.0) Eosinophils (%) (Auto) 4.7 % (0.0-3.0) H Basophils (%) (Auto) 0.9 % (0.0-2.0) Sodium Level 145 MMOL/L (136-145) Potassium Level 4.0 MMOL/L (3.5-5.1) Chloride Level 111 MMOL/L (98-107) H Carbon Dioxide Level 31 MMOL/L (21-32) Anion Gap 3 mmol/L (5-15) L Blood Urea Nitrogen 11 mg/dL (7-18) Creatinine 1.0 MG/DL (0.55-1.30) Estimat Glomerular Filtration Rate 52.5 mL/min (>60) Glucose Level 80 MG/DL (74-106) Calcium Level 8.2 MG/DL (8.5-10.1) L Height (Feet): 5 Height (Inches): 1.00 Weight (Pounds): 137 Medications Current Medications Medications (Trade) Dose Ordered Sig/Kallie Route PRN Reason Start Time Stop Time Status Last Admin Dose Admin Acetaminophen (Tylenol) 650 mg Q4H PRN ORAL Temp >100.5 07/03/20 18:30 08/02/20 18:29 07/04/20 11:45 Acetaminophen (Tylenol) 650 mg Q4H PRN ORAL pain 07/03/20 18:45 08/02/20 18:44 07/12/20 20:28 Albuterol Sulfate (Proventil MDI) 1 puff Q4H PRN INH Shortness of Breath 07/12/20 14:45 10/10/20 14:44 Amiodarone HCl (Cordarone) 400 mg DAILY ORAL 07/11/20 09:00 10/09/20 08:59 07/13/20 09:04 Aspirin (Ecotrin) 81 mg DAILY ORAL 07/11/20 12:30 08/25/20 12:29 07/13/20 09:03 Ceftriaxone Sodium 2 gm/ Dextrose 55 ml @ 110 mls/hr Q24H IVPB 07/08/20 21:00 07/22/20 23:59 07/12/20 21:11 Chlorhexidine Gluconate (Susan-Hex 2%) 1 applic DAILY@2000 TOPIC 07/04/20 20:00 10/02/20 19:59 07/12/20 20:24 Digoxin (Lanoxin) 0.125 mg DAILY ORAL 07/06/20 09:00 10/04/20 08:59 07/13/20 09:04 Duloxetine HCl (Cymbalta) 30 mg DAILY ORAL 07/04/20 09:00 10/02/20 08:59 07/13/20 09:03 Levothyroxine Sodium (Synthroid) 112 mcg DAILY@0630 ORAL 07/04/20 06:30 08/03/20 06:29 07/13/20 05:40 Magnesium Hydroxide (Mom) 30 ml DAILY ORAL 07/04/20 09:00 08/03/20 08:59 07/10/20 08:31 Memantine (Namenda) 5 mg DAILY ORAL 07/04/20 09:00 08/03/20 08:59 07/13/20 09:03 Metoprolol Tartrate (Lopressor) 12.5 mg Q12HR ORAL 07/12/20 09:00 10/10/20 08:59 07/13/20 09:04 Midodrine (Pro-Amatine) 5 mg EVERY 8 HOURS ORAL 07/11/20 18:00 10/03/20 17:59 07/13/20 05:40 Mirtazapine (Remeron) 7.5 mg BEDTIME ORAL 07/05/20 21:00 10/01/20 20:59 07/12/20 21:08 Multivitamins (Multivitamins) 1 tab DAILY ORAL 07/04/20 09:00 08/03/20 08:59 07/13/20 09:04 Pantoprazole (Protonix) 40 mg DAILY ORAL 07/04/20 09:00 08/03/20 08:59 07/13/20 09:04 Pravastatin Sodium (Pravachol) 10 mg BEDTIME ORAL 07/03/20 21:00 08/02/20 20:59 07/12/20 21:08 Thiamine HCl (Vitamin B1) 100 mg DAILY ORAL 07/04/20 09:00 08/03/20 08:59 07/13/20 09:03 Zolpidem Tartrate (Ambien) 5 mg BEDTIME PRN ORAL Insomnia 07/03/20 18:45 07/16/20 18:44 07/12/20 20:27 Assessment/Plan Problem List: (1) Arthritis ICD Codes: M19.90 - Unspecified osteoarthritis, unspecified site SNOMED: 3297762 (2) CHF (congestive heart failure) ICD Codes: I50.9 - Heart failure, unspecified SNOMED: 07724778 (3) Dehydration ICD Codes: E86.0 - Dehydration SNOMED: 15337857 (4) Bilateral pneumonia ICD Codes: J18.9 - Pneumonia, unspecified organism SNOMED: 932816265 (5) Septic shock ICD Codes: A41.9 - Sepsis, unspecified organism; R65.21 - Severe sepsis with septic shock SNOMED: 03052621 (6) Person under investigation for COVID-19 ICD Codes: Z20.822 - Contact with and (suspected) exposure to COVID-19 SNOMED: 071063209 (7) Generalized weakness ICD Codes: R53.1 - Weakness SNOMED: 86611486 (8) Acute pyelonephritis Assessment & Plan: 89-year-old female in acute septic shock initially had a femoral emergent central venous catheter placed which has been used since. She is planned for discharge and recommended to have IV antibiotics for a few weeks as per infectious disease given her acute pyelonephritis. Unfortunately venous access peripherally is very difficult and her nausea sustainable in the long- term aspect specially in the care facility as discharge planning and goals of care and care planning is being initiated. I have been asked to remove the central venous catheter which I will hold off on given patient does not have ot her access for her necessary IV antibiotics. A PICC line will be placed. Once peripherally inserted central venous catheter is available and ready I will remove the central venous catheter and patient can then be discharged safely on IV antibiotics as per infectious disease. Thank you letting participate patient's care will follow with recommendations ICD Codes: N10 - Acute pyelonephritis SNOMED: 11974948 (9) Acute renal failure ICD Codes: N17.9 - Acute kidney failure, unspecified SNOMED: 33573185 (10) Dementia ICD Codes: F03.90 - Unspecified dementia without behavioral disturbance SNOMED: 49194641 (11) Urinary tract infection ICD Codes: N39.0 - Urinary tract infection, site not specified SNOMED: 64853696 Qualifiers: Shahbaz Quispe Jul 13, 2020 12:50
--- NOTE | 2020-07-13 14:10 | NUR ---
*-*DISCHARGE PLANNING*-* PATIENT HAS BEEN REFERRED TO: [facility] P: [phone] S/W RAY, WILL ACCEPT PATIENT, REQUESTING RAPID COVID RESULT WITH IN THE LAST 72 HOURS.
--- NOTE | 2020-07-13 14:10 | NUR ---
*-*DISCHARGE PLANNING*-* PATIENT HAS BEEN REFERRED TO: [facility] P: [phone] S/W RAY, REQUESTING RAPID COVID RESULT.
--- NOTE | 2020-07-13 14:18 | Cardiac Electrophysiology PN ---
Assessment/Plan Assessment/Plan 1. Elevated troponin of 0.08 and 0.144. Due to demand ischemia as creatinine of 2.6 and severe anemia with hemoglobin of 6.9. On Lopressor 12.5 bid and aspirin 81 mg daily 2. S/P Septic shock resolved. On Midodrine 5 tid 3. S/P [employer] pacemaker on 07/03/2018 with Nl Fx 4. Atrial fib with RVR. Continue Dig 0.125 po daily, Amiodarone 400 po daily and Lopressor 12.5 bid Off anticoagulation as Platelet was in 20s. Now on Aspirin 81 daily . Dig level 0.6 5. Dementia. 6. Hyperlipidemia, on Pravachol. 7. Hypothyroidism, on Synthroid. DW RN DC to [facility] today Subjective Subjective No more atrial fib. Atrially paced. Off restraints No CP or SOB. DC to [facility] pending today Objective Last 24 Hour Vital Signs Date Time Temp Pulse Resp B/P (MAP) Pulse Ox O2 Delivery O2 Flow Rate FiO2 07/13/20 12:00 61 07/13/20 12:00 97.1 61 18 142/62 (88) 93 07/13/20 09:04 64 150/66 07/13/20 09:04 64 07/13/20 09:00 Room Air 07/13/20 08:00 60 07/13/20 08:00 98.9 61 19 150/66 (94) 96 07/13/20 04:00 97.5 61 20 159/63 (95) 94 07/13/20 03:47 60 07/13/20 00:00 60 07/13/20 00:00 97.3 59 20 140/62 (88) 93 07/12/20 21:09 61 152/58 07/12/20 21:00 Room Air 07/12/20 20:58 97.9 07/12/20 20:00 60 07/12/20 20:00 97.7 61 20 152/58 (89) 94 07/12/20 16:06 97.9 61 18 145/56 (85) 98 07/12/20 16:00 60 Intake and Output 07/12/20 07/13/20 19:00 07:00 Intake Total 240 ml 120 ml Balance 240 ml 120 ml Intake Oral 240 ml 120 ml # Voids 3 2 # Bowel Movements 1 Laboratory Tests Test 07/13/20 04:00 White Blood Count 8.8 K/UL (4.8-10.8) Red Blood Count 4.69 M/UL (4.20-5.40) Hemoglobin 8.2 G/DL (12.0-16.0) L Hematocrit 28.9 % (37.0-47.0) L Mean Corpuscular Volume 61 FL (80-99) L Mean Corpuscular Hemoglobin 17.4 PG (27.0-31.0) L Mean Corpuscular Hemoglobin Concent 28.3 G/DL (32.0-36.0) L Red Cell Distribution Width 18.4 % (11.6-14.8) H Platelet Count 197 K/UL (150-450) Mean Platelet Volume 7.2 FL (6.5-10.1) Neutrophils (%) (Auto) 70.4 % (45.0-75.0) Lymphocytes (%) (Auto) 19.6 % (20.0-45.0) L Monocytes (%) (Auto) 4.5 % (1.0-10.0) Eosinophils (%) (Auto) 4.7 % (0.0-3.0) H Basophils (%) (Auto) 0.9 % (0.0-2.0) Sodium Level 145 MMOL/L (136-145) Potassium Level 4.0 MMOL/L (3.5-5.1) Chloride Level 111 MMOL/L (98-107) H Carbon Dioxide Level 31 MMOL/L (21-32) Anion Gap 3 mmol/L (5-15) L Blood Urea Nitrogen 11 mg/dL (7-18) Creatinine 1.0 MG/DL (0.55-1.30) Estimat Glomerular Filtration Rate 52.5 mL/min (>60) Glucose Level 80 MG/DL (74-106) Calcium Level 8.2 MG/DL (8.5-10.1) L Objective HEAD AND NECK: Showed no JVD. LUNGS: Clear. CARDIOVASCULAR: Irregular S1 and S2 with no gallop or murmur. Pacer left subclavian ABDOMEN: Soft. EXTREMITIES: No pitting edema. Jorge Abbott MD Jul 13, 2020 14:18
--- NOTE | 2020-07-13 15:12 | NUR ---
*-*DISCHARGE PLANNING*-* PATIENT HAS BEEN REFERRED TO: [facility] P: [phone] @ 2:27PM S/W ABIOLA EASON IN ADMISSION IS GONE FOR THE DAY, FOLLOW UP TOMORROW.
--- NOTE | 2020-07-13 15:15 | NUR ---
RADIOLOGY NOTE: LEFT UPPER EXTREMITY PICC LINE PLACEMENT BY DR. GRACIELA JEFF AT 1450 HRS. FA
--- NOTE | 2020-07-13 15:22 | Brief Operative Note ---
Immediate Post Operative Note Operative Note Pre-op Diagnosis: needs IV access Procedure: PICC Post-op Diagnosis: same as pre-op Surgeon: Derek Wiklins Anesthesia: local Specimen: none Complications: none Fluids: none Implant(s) used?: No Lamine Wilkins MD Jul 13, 2020 15:22
--- NOTE | 2020-07-13 15:24 | NUR ---
*-*DISCHARGE PLANNING*-* PATIENT HAS BEEN REFERRED BACK TO: [facility] P: [phone] S/W NONA, WILL CALL BACK WITH MORE INFO ON THIS PATIENT.
--- NOTE | 2020-07-13 15:29 | Diagnostic Imaging Report ---
Indications: Needs long-term IV access Technique: Ultrasound confirms patent compressible left basilic vein. Total sterile technique, including sterile probe cover and sterile gel, hat, mask, sterile gown, large sterile drape, and preparation with 2% chlorhexidine utilized. Local anesthesia with 1% lidocaine. Under real-time ultrasound guidance, puncture basilic vein using 21-gauge needle, documented and archived, passage 0.018 guidewire under direct fluoroscopy, which was used to determine appropriate catheter length, exchange for 4 Scottish peel-away sheath. 4 Scottish Bard dual-lumen power PICC cut to 43 cm. It was inserted through the peel-away sheath. Peel-away sheath and guidewire removed. Catheter fixed to the skin. Both catheter ports aspirated and flushed. Patient tolerated procedure well, without immediate complication. Digital radiograph documents satisfactory catheter tip position, at the cavoatrial junction. Total fluoroscopy time 91.2 seconds. Total dose area product 0.289 mGym2 Total number of images: 1 Impression: Successful placement of left arm PICC under sonographic and fluoroscopic guidance, as described above.
--- NOTE | 2020-07-13 16:27 | NUR ---
SPRAY GUN OPERATOR NOTES PLACED A CALL TO SHARON PT'S DAUGHTER MADE AWARE OF DCP AND DC LOCATION CONTACT PROVIDED. SHARON ASKED ME TO NOTIFY HER BROTHER WELL. PLACED A CALL TO [facility] NO ANSWER MESSAGE LEFT.
--- NOTE | 2020-07-13 16:33 | NUR ---
*-*DISCHARGE PLANNED*-* PATIENT HAS BEEN ACCEPTED AND WILL BE DISCHARGED BACK TO: [facility] P: [phone] FOR NURSE TO NURSE REPORT ROOM# 118.A [facility] SET FOR 6PM S/W ROSA [id number].
--- NOTE | 2020-07-13 17:45 | NUR ---
NURSE NOTES: Patient has removed own PICC line. MD has been notified, PICC line was found on the ground, clean and intact. patients VS are stable and does not complain of any pain 0/10.
--- NOTE | 2020-07-13 19:30 | NUR ---
NURSE NOTES: Receive a report from Ricardo. PHAN. Round is made. Pt is awake, orientationx2 without acute distress noted. Denies pain. On bed bound. On bed alarm. PICC self-removal site clean without further bleeding. Waiting for MD's call-back. Call light within reach. Will continue to monitor.
--- NOTE | 2020-07-13 19:45 | NUR ---
NURSE HAND-OFF REPORT: Important Events on Shift:[Patient removed own PICC line, D?C pending to [facility]] Patient Status: [Full code] Diet: [Mechanical soft chopped ] Pending Orders: [N/A] Pending Results/Labs:[N/A] Pending MD notification:[N/A] Latest Vital Signs: Temperature 98.0 , Pulse 61 , B/P 110 /64 , Respiratory Rate 18 , O2 SAT 95 , Room Air, O2 Flow Rate . Vital Sign Comment: [] EKG Rhythm: A-Paced Rhythm change?: N MD Notified?: - MD Response: Latest Parada Fall Score: 45 Fall Risk: High Risk Safety Measures: Call light Within Reach, Bed Alarm Zone 2, Side Rails Side Rails x3, Bed position Low and Locked. Fall Precautions: Yellow Socks Door Sign Report given to [EMILIE Fuentes].
[2020-07-13] MEDS ORDERED: Dyna-Hex 2% Top Sol 2oz TOPIC SCH (20:00)
--- NOTE | 2020-07-13 20:32 | Infectious Diseases Prog Note ---
Assessment/Plan Problems: (1) Acute pyelonephritis Assessment & Plan: due to E.coli and Proteus Mirabilis , complicated with sepsis and shock due to E coli , will continue ceftriaxone to complete two weeks course of treatment , repeated blood culture x 2 is negative which confirm clearance on 07/08 (2) Bilateral pneumonia Assessment & Plan: With interstitial infiltrations on chest x-ray, now on ceftriaxone to cover for bacteremia for two weeks , monitor chest x-ray, aspiration precaution. Patient was tested recently for COVID 19 with PCR test couple of days ago and it was negative as per the primary (3) Septic shock Assessment & Plan: RESOLVED, due to the above with E coli , source most likely urine infection and pyelonephritis, will continue ceftriaxone to treat for two weeks. EOT 07/23/20 (4) Acute renal failure Assessment & Plan: IMPROVED, Suspect due to dehydration continue fluids, avoid nephrotoxic's, close monitor of renal function, nephrology follow up is recommended (5) Generalized weakness Assessment & Plan: Supportive care, PT OT eval Subjective Constitutional: Reports: no symptoms HEENT: Reports: no symptoms Respiratory: Reports: no symptoms Breasts: Reports: no symptoms Cardiovascular: Reports: no symptoms Gastrointestinal/Abdominal: Reports: no symptoms Genitourinary: Reports: no symptoms Neurologic: Reports: no symptoms Psychiatric: Reports: no symptoms Skin: Reports: no symptoms Endocrine: Reports: no symptoms Hematologic: Reports: no symptoms Musculoskeletal: Reports: no symptoms Allergies: Coded Allergies: No Known Allergies (Unverified , 07/03/20) she REMOVED HER TRIPLE LUMENS CENTRAL LINE and was found on the floor , afebrile , resting in bed, had no cough or SOB, no diarrhea Objective Last 24 Hour Vital Signs Date Time Temp Pulse Resp B/P (MAP) Pulse Ox O2 Delivery O2 Flow Rate FiO2 07/13/20 20:00 98.2 60 18 148/60 (89) 96 07/13/20 20:00 60 07/13/20 16:00 65 07/13/20 16:00 98.0 61 18 110/64 (79) 95 07/13/20 12:00 61 07/13/20 12:00 97.1 61 18 142/62 (88) 93 07/13/20 09:04 64 150/66 07/13/20 09:04 64 07/13/20 09:00 Room Air 07/13/20 08:00 60 07/13/20 08:00 98.9 61 19 150/66 (94) 96 07/13/20 04:00 97.5 61 20 159/63 (95) 94 07/13/20 03:47 60 07/13/20 00:00 60 07/13/20 00:00 97.3 59 20 140/62 (88) 93 07/12/20 21:09 61 152/58 07/12/20 21:00 Room Air 07/12/20 20:58 97.9 Height (Feet): 5 Height (Inches): 1.00 Weight (Pounds): 137 General Appearance: WD/WN, no acute distress HEENT: normocephalic, atraumatic, anicteric, mucous membranes moist, PERRL Respiratory/Chest: chest wall non-tender, lungs clear, normal breath sounds, no respiratory distress, no accessory muscle use Cardiovascular: normal peripheral pulses, normal rate, regular rhythm, no gallop/murmur, no JVD Abdomen: normal bowel sounds, soft, non tender, no organomegaly, non distended, no mass, no scars Extremities: no cyanosis, no clubbing Skin: no rash, no lesions Neurologic/Psychiatric: alert, responsive Lymphatic: no neck adenopathy, no groin adenopathy Musculoskeletal: normal muscle bulk, no effusion Laboratory Tests Test 07/13/20 04:00 White Blood Count 8.8 K/UL (4.8-10.8) Red Blood Count 4.69 M/UL (4.20-5.40) Hemoglobin 8.2 G/DL (12.0-16.0) L Hematocrit 28.9 % (37.0-47.0) L Mean Corpuscular Volume 61 FL (80-99) L Mean Corpuscular Hemoglobin 17.4 PG (27.0-31.0) L Mean Corpuscular Hemoglobin Concent 28.3 G/DL (32.0-36.0) L Red Cell Distribution Width 18.4 % (11.6-14.8) H Platelet Count 197 K/UL (150-450) Mean Platelet Volume 7.2 FL (6.5-10.1) Neutrophils (%) (Auto) 70.4 % (45.0-75.0) Lymphocytes (%) (Auto) 19.6 % (20.0-45.0) L Monocytes (%) (Auto) 4.5 % (1.0-10.0) Eosinophils (%) (Auto) 4.7 % (0.0-3.0) H Basophils (%) (Auto) 0.9 % (0.0-2.0) Sodium Level 145 MMOL/L (136-145) Potassium Level 4.0 MMOL/L (3.5-5.1) Chloride Level 111 MMOL/L (98-107) H Carbon Dioxide Level 31 MMOL/L (21-32) Anion Gap 3 mmol/L (5-15) L Blood Urea Nitrogen 11 mg/dL (7-18) Creatinine 1.0 MG/DL (0.55-1.30) Estimat Glomerular Filtration Rate 52.5 mL/min (>60) Glucose Level 80 MG/DL (74-106) Calcium Level 8.2 MG/DL (8.5-10.1) L Current Medications Medications (Trade) Dose Ordered Sig/Kallie Route PRN Reason Start Time Stop Time Status Last Admin Dose Admin Acetaminophen (Tylenol) 650 mg Q4H PRN ORAL Temp >100.5 07/03/20 18:30 08/02/20 18:29 07/04/20 11:45 Acetaminophen (Tylenol) 650 mg Q4H PRN ORAL pain 07/03/20 18:45 08/02/20 18:44 07/12/20 20:28 Albuterol Sulfate (Proventil MDI) 1 puff Q4H PRN INH Shortness of Breath 07/12/20 14:45 10/10/20 14:44 Amiodarone HCl (Cordarone) 400 mg DAILY ORAL 07/11/20 09:00 10/09/20 08:59 07/13/20 09:04 Aspirin (Ecotrin) 81 mg DAILY ORAL 07/11/20 12:30 08/25/20 12:29 07/13/20 09:03 Ceftriaxone Sodium 2 gm/ Dextrose 55 ml @ 110 mls/hr Q24H IVPB 07/08/20 21:00 07/22/20 23:59 07/12/20 21:11 Chlorhexidine Gluconate (Susan-Hex 2%) 1 applic DAILY@2000 TOPIC 07/13/20 20:00 10/11/20 19:59 Digoxin (Lanoxin) 0.125 mg DAILY ORAL 07/06/20 09:00 10/04/20 08:59 07/13/20 09:04 Duloxetine HCl (Cymbalta) 30 mg DAILY ORAL 07/04/20 09:00 10/02/20 08:59 07/13/20 09:03 Heparin Sodium/ Sodium Chloride (Heparin 1000 units/500ml Premix) 1,000 unit ONCE PRN IV PICC LINE 07/13/20 12:45 07/16/20 12:44 Levothyroxine Sodium (Synthroid) 112 mcg DAILY@0630 ORAL 07/04/20 06:30 08/03/20 06:29 07/13/20 05:40 Lidocaine HCl (Xylocaine 1% 30ml) 30 ml ONCE PRN INJ PICC LINE 07/13/20 12:45 07/16/20 12:44 Magnesium Hydroxide (Mom) 30 ml DAILY ORAL 07/04/20 09:00 08/03/20 08:59 07/10/20 08:31 Memantine (Namenda) 5 mg DAILY ORAL 07/04/20 09:00 08/03/20 08:59 07/13/20 09:03 Metoprolol Tartrate (Lopressor) 12.5 mg Q12HR ORAL 07/12/20 09:00 10/10/20 08:59 07/13/20 09:04 Midodrine (Pro-Amatine) 5 mg EVERY 8 HOURS ORAL 07/11/20 18:00 10/03/20 17:59 07/13/20 13:32 Mirtazapine (Remeron) 7.5 mg BEDTIME ORAL 07/05/20 21:00 10/01/20 20:59 07/12/20 21:08 Multivitamins (Multivitamins) 1 tab DAILY ORAL 07/04/20 09:00 08/03/20 08:59 07/13/20 09:04 Pantoprazole (Protonix) 40 mg DAILY ORAL 07/04/20 09:00 08/03/20 08:59 07/13/20 09:04 Pravastatin Sodium (Pravachol) 10 mg BEDTIME ORAL 07/03/20 21:00 08/02/20 20:59 07/12/20 21:08 Thiamine HCl (Vitamin B1) 100 mg DAILY ORAL 07/04/20 09:00 08/03/20 08:59 07/13/20 09:03 Zolpidem Tartrate (Ambien) 5 mg BEDTIME PRN ORAL Insomnia 07/03/20 18:45 07/16/20 18:44 07/12/20 20:27 Isma Schaffer M.D. Jul 13, 2020 20:32
--- NOTE | 2020-07-13 20:35 | NUR ---
NURSE NOTES: Receive a call back from Dr. Pak. Receive new order for changing Rocephin 2g IVPB to 2g IM so pt can continue on getting medication @ SNF. Order noted and carried out. Will continue to monitor.
[2020-07-13] MEDS ORDERED: Lidocaine 1% MPF 10mg/ml 5ml INJ SCH (21:00)
--- NOTE | 2020-07-13 23:00 | NUR ---
NURSE NOTES: Given report to RN Ammonium Nitrate Crystallizer, Isa, in [facility].
--- NOTE | 2020-07-13 23:30 | NUR ---
NURSE NOTES: 2 personnels arrived from [facility]. Given report to them.
--- NOTE | 2020-07-13 23:44 | NUR ---
NURSE NOTES: After done checking by their protocols, pt left the facility via gurney. Given call to daughter to pt's placement.
--- NOTE | 2020-07-16 16:00 | Discharge Summary ---
Discharge Summary Discharge Summary _ Date of admission: 07/03/2020 Date of discharge: 07/13/[address] Pak History of Present Illness and Brief Hospital Course Ms. Orr is an 89-year-old female with past medical history of hypertension, pacemaker implant, dementia, anxiety, arthritis, and CHF, who was sent to ED f [facility] for evaluation of generalized weakness. Patient's blood pressure was noted to be mildly hypotensive at her facility. Chest x-ray was notable for bilateral interstitial prominence. Patient was started on antibiotics. Patient was found to be in septic shock with hypotension. She was started on pressors and was transferred to ICU. Patient was continued on antibiotics. She also had elevated troponin which was likely due to sepsis and acute renal failure. Given her atrial fibrillation, she was started on Cardizem. Eventually, she was off of Cardizem and was on amiodarone. Her urine culture grew E. coli and Proteus mirabilis. She was treated with antibiotics. Repeat blood cultures x2 were negative. Patient was evaluated by a physical therapist who found the patient unable to stand. It was recommended that patient to be discharged to rehabilitation. A PICC line was placed before discharge and the central line was removed. She is to continue IV antibiotics for a few weeks given her acute pyelonephritis. Patient was medically stable for discharge and was discharged to SNF on 07/13/2020. Consultants: Cardiology Dr. Abbott Infectious disease Dr. Schaffer Surgery Dr. Quispe Discharge Condition Improved and stable Final diagnoses Acute pyelonephritis Bilateral pneumonia Septic shock Acute renal failure Generalized weakness Elevated troponin Thrombocytopenia UTI Pacemaker Atrial fibrillation with RVR Hypertension Dementia Hypothyroidism I have been assigned to dictate discharge summary for this account. I was not involved in the patient's management Celso Rodas Jul 16, 2020 16:00
--- NOTE | 2020-07-16 19:29 | Discharge Summary ---
DATE OF ADMISSION: 07/03/2020 DATE OF DISCHARGE: 07/13/2020 HOSPITAL COURSE: This is an 89-year-old [place] female with a past history of CHF, arthritis, anxiety, and dementia who was brought in for generalized weakness and multiple falls. Patient was also hypotensive as well. Patient was found to have sepsis and urinary tract infection and pneumonia. Patient was started on broad-spectrum IV antibiotic and Infectious Disease was consulted. Patient was also seen by Cardiology due to hypotension and requiring pressors. Patient was admitted into ICU due to septic shock and was on pressor for few days until the blood pressure improved and patient's sepsis improved. Patient responded to treatment. She also had pacemaker that was evaluated by the shield operator. She was thrombocytopenic with platelet count in the low 30s, but improved as sepsis resolved. Patient's echocardiogram showed 65% ejection fraction and mild MR, mild AR with mild tricuspid regurgitation, and mitral diastolic velocity suggests mild left ventricular diastolic dysfunction grade 1, but she also had severe pulmonary hypertension with right ventricular systolic pressure of 75 mmHg. Her venous duplex was negative for any DVT. Patient was seen by physical therapist, but was unable to stand or walk. So, it was decided to transfer the patient to rehabilitation for a few days to improve the patient's gait. She was also needed to be on antibiotic for another 8 days following the discharge. DISCHARGE DIAGNOSES: 1. Septic shock. 2. Sepsis. 3. Acute renal failure. 4. Elevated troponin. 5. Thrombocytopenia. 6. Pneumonia. 7. Urinary tract infection. 8. Pacemaker. 9. Generalized weakness. 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 11. Hyperlipidemia. 12. History of hypertension. 13. Dementia. 14. Atrial fibrillation. DISCHARGE MEDICATIONS: Please review the discharge medications from the list. DISPOSITION: Patient will be transferred to the rehabilitation for IV antibiotic and physical therapy for a week or two. Matthew Pak M.D. DR: LINN JOB#: [id number] CC:
== END 2020-07-13 23:45 | DRG 871 ==
LOC: EDBD 14:39 → EMR 15:21 → EDBD 15:40 → 2E 15:40 → EDBEDREQSVC 16:28 → EDBEDREQ 16:28 → 2E 17:25 → ICU 23:56 → 2W 07-07 20:28 → 2E 07-09 18:00
PROC: 06HM33Z Insertion of Infusion Device into Right Femoral Vein, Percutaneous Approach (ICD-10-PCS; principal; 2020-07-03)
PROC: 02HV33Z Insertion of Infusion Device into Superior Vena Cava, Percutaneous Approach (ICD-10-PCS; 2020-07-13)
DX: A41.9 Sepsis, unspecified organism (principal); J18.9 Pneumonia, unspecified organism; R65.21 Severe sepsis with septic shock; N17.9 Acute kidney failure, unspecified; E87.1 Hypo-osmolality and hyponatremia; N10 Acute pyelonephritis; I95.9 Hypotension, unspecified; E86.0 Dehydration; D69.6 Thrombocytopenia, unspecified; I11.0 Hypertensive heart disease with heart failure; I50.9 Heart failure, unspecified; Z79.82 Long term (current) use of aspirin; Z95.0 Presence of cardiac pacemaker; F03.90 Unspecified dementia, unspecified severity, without behavioral disturbance, psychotic disturbance, mood disturbance, and anxiety; E03.9 Hypothyroidism, unspecified; M19.90 Unspecified osteoarthritis, unspecified site; E78.5 Hyperlipidemia, unspecified; B96.20 Unspecified Escherichia coli [E. coli] as the cause of diseases classified elsewhere; B96.4 Proteus (mirabilis) (morganii) as the cause of diseases classified elsewhere; R53.1 Weakness; I48.91 Unspecified atrial fibrillation
CPT/HCPCS: 36415; 36573; 71045; 76937; 80048; 80053; 80162; 80202; 81003; 82550; 82962; 83605; 83690; 83880; 84484; 85007; 85025; 86850; 86900; 86901; 87040; 87081; 87086; 87181; 93005; 93306; 93970; 94640; 96360; 99285; J7030; J7620